=== PATIENT | female | born 1985 | race Caucasian/White ===

== ENCOUNTER 2022-06-15 03:01 | Emergency (ER) | payer OTHER, SELFPAY ==
--- OUTSIDE RECORDS SUMMARY | 2022-06-15 03:06 | XMS REPORT | Continuity of Care Document ---
:1985 Author Organization [facility] t Address [address] [place] [address] Care Team Providers Name Role Phone DAVID Primary Care Physician Unavailable SLY Attending Clinician Unavailable Enrique Puente Attending Clinician Unavailable Reina MAYO Attending Clinician Unavailable Christofer TAYLOR Attending Clinician Unavailable Windy MARINO Attending Clinician Unavailable ABBY Attending Clinician Unavailable LUCILA Attending Clinician Unavailable Desiree ALVARADO Attending Clinician Unavailable RACHEAL BLAKELY Attending Clinician Unavailable Windy MCKEON Attending Clinician Unavailable Jessica WEAVER Attending Clinician Unavailable Flora HULL Attending Clinician Unavailable BLAYNE Attending Clinician Unavailable Angelina WELDON Attending Clinician Unavailable Samantha Gillespie DO Attending Clinician Physician, Primary or Family Admitting Clinician Unavailmariana ESTRELLA Admitting Clinician Unavailable Payers Payer Name Policy Type Policy Number Effective Date Expiration Date Reina silver [facility] [id number] 2019 HEALTH PLAN STAR 00:00:00 [facility] P [id number] HEALTH PLAN [place] [employer] [place] [id number] 2019 AFFILIATE 00:00:00 Problems Condition Condition Condition Status Onset Resolution Last Treating Co mments Source Name Details Category Date Date Treatment Clinician Date Acute knee Acute knee Disease Active 2015-11 U nivers pain pain 2-22 ity of 00:00: [place] 00 [facility] Allergies, Adverse Reactions, Alerts Allergy Allergy Status Severity Reaction(s) Onset Inactive Treating Comm ents Source Name Type Date Date Clinician No Known DA Active U 2019- [facility] [place] [facility] 00:[facility]: [facility] 00 are [facility] No Known DA Active U 2019-1 [facility] Allergie 0-17 [place]in s 00:00: [facility] 00 are [facility] No Known DA Active U 2019- [facility] Allergie 5-29 [place] s 00:[facility]: [place] 00 [facility] No Known DA Active U 2019-0 [facility] Allergie 5-29 Clear s 00:00: [place] 00 [facility] No Known DA Active U [facility] All[facility]ie 1-15 [place] 00:00: [address] No Known DA Active U 2013- [facility] Allergie 1-15 [place] 00:00: [address] NO KNOWN Drug Active Univers ALLERGIE Class ity of S [facility] Social History Social Habit Start Date Stop Date Quantity Comments Source Exposure to Not sure [facility] SARS-CoV-2 (event) Medica [facility] Alcohol intake 2017-06-15 2017-06-15 [facility] 00:00:00 00:00:00 [facility] Sex Assigned At [birth year] [facility] 00:00:00 00:00:00 [facility] Smoking Status Start Date Stop Date Source Former smoker 2017-06-15 00:00:00 2017-06-15 00:00:00 [facility] Medications Ordered Filled Start Stop Current Ordering Indication Dosage Frequency Signature Comments Components Source Medication Medication Date Date Medication? Clinician (SIG) Name Name ziprasidone 2020- No 10mg 10 mg, Uni vers (GEODON) 05-07 Intramuscu ity of injection 22:30: 21:26 [place] 00 :00 1 dose, [facility] 05/07/21 at 1730, JOSÉ MIGUEL acetaminoph 2020- No 1000mg 1,000 mg, Univers en 05-07 Oral, ity of (TYLENOL) 21:30: 20:20 [place]CE[place] :[place] dose, [facility] 1,000 mg 05/07/21 at [facility] h 1630, JOSÉ MIGUEL LORazepam No 2mg 2 mg, Slow U nivers (ATIVAN) 05-07 IV Push, ity of injection 2 20:00: 18:54 [place] dose, [facility] 05/07/21 at [place] 1500, STAT hydrOXYzine 2020- No 50mg 50 mg, Uni vers (ATARAX) 05-07 Oral, ity of tablet 50 03:30: 02:41 [place]CE[place] mg 00 :00 dose, [facility] 05/06/21 at [place] 2230, JOSÉ MIGUEL acetaminoph No 650mg 650 mg, U nivers en 05-07 Oral, ity of (TYLENOL) 03:30: 02:41 ONCE, [place] tablet 650 00 :00 dose, [facility] estephania mg 05/06/21 at [place] 2230, [facility] Nitrofurant Yes [id number] 100mg Take 1 Univers oin&Nit. 05-07 capsule by ity o f [place] 00:00: mouth 2 [place] (MACROBID) 00 (two) Medical 100 mg times [place] capsule daily. melatonin No 9mg 9 mg, Univer s (MELATIN) 05-06 Oral, ity of tablet 9 mg 12:00: 11:01 [place]CE[place] dose, [facility] 05/06/21 at [place] 0700, Routine nicotine Yes 1{patch 1 Patch, Un nae (NICODERM) 05-06 } Topical, ity o f 21 mg/24 hr 11:15: Administer [place] patch 1 00 over 24 Medical Patch Hours, [place] Q24H, First dose on [facility] 05/06/21 at 0615, Until Discontinu ed, Routine KCL 2020- No 40meq 40 mEq, Univers (KLOR-CON 05-06 Oral, ity of M20) tablet 07:45: 07:16 [place]CE[place] 40 mEq 00 :00 dose, [facility] 05/06/21 at [place] 0245, JOSÉ MIGUEL potassium 2020- No 10meq 10 mEq, IV Univers chloride in 05-06 Piggyback, i ty of water 10 07:45: 08:17 ONCE, 1 [place] mEq/100 mL 00 :00 dose, [facility] estephania RTU 10 mEq 05/06/21 at [facility] 0245, 100 mL NaCl 0.9% 2020- No 1000mL at 999 Uni vers (NS) bolus 05-06 mL/hr, ity of infusion 07:15: 09:45 1,000 mL, [place] 1,000 mL 00 :00 IV Medical Infusion, [place] ONCE, 1 dose, [facility] 05/06/21 at 0215, JOSÉ MIGUEL LORazepam 2020- No 2mg 2 mg, Slow U nivers (ATIVAN) 05-06 IV Push, ity of injection 2 06:45: 06:05 ONCE[place] mg 00 :00 dose, [facility] 05/06/21 at [place] 0145, STAT sulfamethox 2020- No 1{tbl} 1 tablet, [facility] azole-trime 05-06 Oral, BID, i ty of thoprim 05:45: 00:59 6 doses, [place] (BACTRIM 00 :00 First dose Medic al DS) 800-160 (after Branch mg per last tablet 1 modificati tablet on) on Thu05/06/21 at 0045, Last dose on Thu05/08/21 at 0800, JOSÉ MIGUEL
Re ason for Anti-Infec tive: Documented Infection< br>Documen yi Infection Site: Urine
D uration of Therapy: 7 days LORazepam 2020- No 1mg 1 mg, Slow U nivers (ATIVAN) 05-06 IV Push, ity of injection 1 05:30: 04:24 [place]CE[place] mg [place] :[place] dose, [facility] 05/06/21 at [place] 0030, STAT acetaminoph 2017-0 Yes 1{tbl} Take 1 Un nae en-codeine 7-25 tablet by ity of (TYLENOL-CO 00:00: mouth [place] DEINE #3) 00 every 4 Medical 300-30 mg (four) Branch tablet hours as needed for Pain (scale 4-6) or Pain (scale 7-10). acetaminoph Yes 1{tbl} Take 1 Un nae en-codeine 7-25 tablet by ity of (TYLENOL-CO 00:00: mouth [place] DEINE #3) 00 every 4 Medical 300-30 mg (four) Branch tablet hours as needed for Pain (scale 4-6) or Pain (scale 7-10). methylPREDN Yes 84mg Take 21 Uni vers ISolone 7-24 tablets by ity of (MEDROL, 00:00: mouth [place] RHINA,) 4 mg 00 SEE-INSTRU Med ical tablets CTIONS. Branch follow package directions acetaminoph Yes 1{tbl} Take 1 Un nae en-codeine 7-24 tablet by ity of (TYLENOL-CO 00:00: mouth [place] DEINE #3) 00 every 4 Medical 300-30 mg (four) Branch tablet hours as needed for Pain (scale 4-6) or Pain (scale 7-10). methylPREDN 2015-11 Yes 84mg Take 21 Uni vers ISolone 2-22 tablets by ity of (MEDROL, 00:00: mouth [place] RHINA,) 4 mg 00 SEE-INSTRU Med ical tablets CTIONS. Branch follow package directions citalopram 2015-11 Yes TK 11/24 T Uni vers 20 mg 2-05 PO QAM FOR ity of tablet 00:00: 1 WEEK AND [place] 00 THEN 1 T Medical PO QAM Branch azithromyci 2014-11 Yes 250mg Take 1 Tab Univers n 2-24 by mouth ity of (ZITHROMAX 00:00: daily. [place] Z-RHINA) 250 00 Medical mg tablet Branch ibuprofen 2014-11 Yes 800mg Take 1 Tab U nivers (MOTRIN) 2-24 by mouth ity of 800 mg 00:00: every 6 [place] tablet 00 (six) Medical hours as Branch needed for Pain (scale 4-6) or Temp > 38.5 C. benzonatate 2014-11 Yes 200mg Take 1 Cap Univers (TESSALON) 2-24 by mouth 3 ity of 200 mg 00:00: (three) [place] capsule 00 times Medical daily as Branch needed for Cough. Vital Signs Vital Name Observation Time Observation Value Comments Source Systolic blood 2021-05-07 19:00:00 110 mm[Hg] Univer sity of pressure [facility] Diastolic blood 2021-05-07 19:00:00 71 mm[Hg] Unive rsity of pressure [facility] Heart rate 2021-05-07 19:00:00 81 /min Universi ty of [facility] Respiratory rate 2021-05-07 19:00:00 18 /min Univ ersity of [facility] Oxygen saturation in 2021-05-07 19:00:00 97 /min University of Arterial blood by [facility] Pulse oximetry Branch Body temperature 2021-05-07 02:00:00 37.39 Brittany [facility] Body weight 2021-05-06 03:16:00 58.968 kg Universi [facility] BMI 2021-05-06 03:16:00 23.78 [facility] 2021-05-07 19:00:00 110 mm[Hg] Univer sity of [facility] Diastolic blood 2021-05-07 19:00:00 71 mm[Hg] Unive rsity of [facility] Heart rate 2021-05-07 19:00:00 81 /min Universi ty of [facility] Respiratory rate 2021-05-07 19:00:00 18 /min [facility] Oxygen saturation in 2021-05-07 19:00:00 97 /min University of Arterial blood by [facility] Pulse oximetry Branch Body temperature 2021-05-07 02:00:00 37.39 Brittany [facility] Body weight 2021-05-06 03:16:00 58.968 kg Universi [facility] BMI 2021-05-06 03:16:00 23.78 kg/m2 [facility] Procedures Procedure Date / Time Performing Clinician Source Performed COVID-19 (MOLECULAR 2021-05-07 02:19:00 Erlin Walton [facility] NUCLEIC ACID AMPLIFICATION) CK-MB (WITHOUT INDEX) 2021-05-07 02:16:00 Erlin Walton [facility] POTASSIUM SERUM 2021-05-06 13:19:00 Cristóbal De León o f [facility] HEPATIC FUNCTION PANEL 2021-05-06 06:03:00 Amanda Gillespie [facility] ([id number]) (ALB,T.PRO,BILI [facility] Branch T,BU/BC,ALT,AST,ALK PHOS) BASIC METABOLIC PANEL 2021-05-06 06:03:00 [facility]illes[facility] (NA, K, CL, CO2, Medical Branch GLUCOSE, BUN, CREATININE, CA) HB ECG ROUTINE & RHYTHM 2021-05-06 04:46:27 [facility] POCT TEST 2021-05-06 04:08:00 Amanda Gillespie [facility] SALICYLATE 2021-05-06 04:04:00 Amanda Gillespie [facility] ETHANOL 2021-05-06 04:04:00 Amanda Gillespie [facility] URINE DRUG (IMMUNOASSAY) 2021-05-06 04:04:00 Amanda Gillespie [facility] DRUG Medical [facility] SCREEN CBC WITH DIFF 2021-05-06 04:04:00 Amanda Gillespie [facility] URINALYSIS 2021-05-06 04:04:00 Amanda Gillespie [facility] COVID-19 (ID NOW RAPID 2021-05-06 04:04:00 Amanda Gillespie [facility] TESTING) [facility] NOTICE OF PRIVACY 2021-05-06 02:44:14 Doctor Unassigned, No [facility] PRACTICES Name [facility] CONSENT/REFUSAL FOR 2021-05-06 02:43:53 Doctor Unassigned, No [facility] DIAGNOSIS AND TREATMENT Name [facility] Encounters Start End Encounter Admission Attending Care Care Encounter Source Date/Time Date/Time Type Type Clinicians Facility Department ID 2022-03-24 Outpatient [facility] [id number] [place] 14:13:21 Health 2022-03-04 Outpatient [facility] [id number] [place] 13:49:44 [facility] 2022-02-14 Outpatient [facility] [id number] [place] 21:50:44 [id number] [facility] 2021-09-25 Outpatient [facility] [id number] [place] 09:53:09 [id number] [facility] 2021-09-23 Emergency [facility] [id number] Univers 00:54:38 ity [facility] 2021-06-15 [facility] [id number] [facility] 17:20:53 FRANCISCO 2020-09-08 Inpatient HCANW ADAN [id number] [facility] 22:22:00 [id number] [facility] 2020-04-25 Inpatient RAMON Puente, [facility] DAYS [id number] [facility] 11:15:00 Zachariah [id number] [facility] 2020-01-21 Inpatient HCACR ADAN [id number] [facility] 16:53:00 [id number] [facility] 2022-05-27 2022-05-27 Outpatient , [facility] [id number] Avinash 00:00:00 00:00:00 [facility] 2022-04-24 2022-04-24 Outpatient EBENEZER [facility] [id number] [place] 00:00:00 00:00:00 Joshua MARTINEZ KATIE 2022-04-11 2022-04-11 Outpatient JAMILA, USMAN [facility] [id number] Avinash 00:00:00 00:00:00 [facility] 2022-03-19 2022-03-19 Outpatient ABBY, [facility] [id number] Avinash 06:39:00 13:54:08 [facility] 2022-03-07 2022-03-07 Outpatient EBENEZER [facility] [id number] Avinash 00:00:00 00:00:00 REQUABHINAV, Heal th KATIE 2022-03-07 2022-03-07 Outpatient LUCILA, [facility] [id number] Avinash 00:00:00 [facility]00:[facility]22-03-06 2022-03-06 Outpatient JAMILA, USMAN [facility] [id number] Avinash 00:00:00 00:00:00 Health 2022-03-05 2022-03-05 Outpatient NETTIE, [facility] [id number] Avinash 07:21:01 15:40:36 [facility] 2022-01-24 2022-01-24 [facility] [id number] [place] 15:25:58 23:59:00 YAQUELIN [facility] 2021-12-24 2021-12-25 [facility] [id number] [place] 14:17:00 19:55:00 [facility] 2021-12-25 2021-12-25 [facility] [id number] [place] 00:00:00 00:00:00 [facility] 2021-12-24 2021-12-24 Emergency 1 [facility] [id number] [place] 14:17:00 14:17:00 [facility] 2021-08-22 2021-08-25 [facility] [id number] [place] 01:05:00 04:53:00 [facility] 2021-08-22 2021-08-22 Outpatient [facility] [id number] [place] 01:05:00 01:05:00 [facility] 2021-08-22 2021-08-22 Emergency [facility] [id number] [place] 00:00:00 00:00:00 [facility] 2021-08-22 2021-08-22 Outpatient BLAYNE, [facility] [id number] [place] 00:00:00 00:00:00 [facility] 2021-08-21 2021-08-21 Outpatient FATEMEH [facility] [id number] [place] 21:06:54 23:59:00 , JAYSON Forrester [facility] 2021-05-05 2021-05-07 [facility] [id number] [facility] 22:52:00 18:16:00 Amanda Murry [id number] shaggy [facility] [id number] [facility] [id number] [facility] 084 [place] 2021-05-05 2021-05-07 Emergency [facility] [id number] 22:52:00 18:16:00 Amanda Murry [id number] [place] [id number] [place] [id number] 2020-04-25 2020-04-25 Outpatient RAMON Puente, [facility] DAYS [id number] [facility] 05:31:00 05:31:00 Zachariah [id number] [facility] 2020-04-20 2020-04-20 Outpatient Young, [facility] OUTD [id number] [facility] 13:22:00 13:22:00 Zachariah [id number] [facility] 2020-04-20 2020-04-20 Outpatient Young, [facility] OUTD [id number] [facility] 13:22:00 13:22:00 Zachariah [id number] [facility] 2020-04-20 2020-04-20 Outpatient Young, HCA[facility] DAYS [id number] [facility] 11:15:00 11:15:00 Zachariah [id number] [facility] Results Test Description Test Time Test Comments Results Result Comments Source SARS-CoV-2 RNA Resp Ql LYNN+probe 2021-12-25 12:02:31 Test Item Value Reference Range Interpretation Comme nts Hospitalized? (test code = No 11475-8) ICU? (test code = 41160-4) No Symptomatic as defined by CDC? 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 (test No code = 35744-9) Resident in a congregate care No setting (including nursing homes, residential care for people with intellectual and developmental disabilities, psychiatric treatment facilities, group homes, board and care homes, homeless care home, foster care or other): (test code = 88788-4) ? (test code = No 20055-7) SARS-CoV-2 RNA Resp Ql NOT DETECTED Not Detected INTER PRETATION: No LYNN+probe (test code = [place] [address]-4) SARS-CoV-2 Guicho navirus (COVID-19) were present in this patient's sample by this test. A no t detected result does not exclude the possibility of active infection with this virus due to other fa ctors that may affect the results such as a poorly col lected sample, viral t iters below the limit of de tection of the assay, and the infrequent poss ibility of inhibitors in t he sample. This result baljit uld be interpreted in conjunction with clinical, radiographic, a nd other laboratory find ings and should not be u sed as the sole indicator of active infection with SARS-CoV-2 Coronavirus (CO VID-19). COMMENT: This urbano real-time reverse transcriptase polymerase chain reaction (RT-PCR) test rapidly detects SARS-CoV-2 (COVID-19) virus from nasopharyngeal and nasal swab specimens. In accordance with the FDA's guidance document "Policy for Diagnostic Tests for Coronavirus Disease-2019 during the Public Health Emergency", this test was developed, and its performance characteristics were verified by the [facility] molecular diagnostics laboratory and is authorized for clinical diagnostic use. This laboratory is certified under the Clinical Laboratory Improvement Amendments (CLIA) as qualified to perform high complexity clinical laboratory testing.HIV 1+2 Ab+HIV1 p24 Ag SerPl Ql [id number] 16:15:14 Test Item Value Reference Range Interpretation Comments HIV 1+2 Ab+HIV1 p24 Ag SerPl Ql [place] NEGATIVE Negative (test code = 76554-4) SARS-CoV-2 RNA Resp Ql [id number] 19:44:08 Test Item Value Reference Range Interpretation Comments Hospitalized? (test No code = 75768-4) ICU? (test code = No 90696-0) Symptomatic as defined No by CDC? (test code = 53460-1) Employed in No Healthcare? (test code = 56699-2) Resident in a No congregate care setting (including nursing homes, residential care for people with intellectual and developmental disabilities, psychiatric treatment facilities, group homes, board and care homes, homeless care home, foster care or other): (test code = 48253-2) ? (test code = No 94678-1) SARS-CoV-2 RNA Resp Ql NOT DETECTED Not Detected INTER PRETATION: No LYNN+probe (test code = detec table levels 13331-2) of SARS-CoV-2 Coronavirus (COVID-19) were present in this patient's sampl e by this test. A no t detected result does not exclud e the possibility of active infectio n with this virus due to other factor s that may affect the results such as a poorly collecte d sample, viral titers below th e limit of detect ion of the assay, a nd the infrequent possibility of inhibitors in t he sample. This re sult should be interpreted in conjunction wit h clinical, radiographic, a nd other laborator y findings and sh ould not be used as the sole indicator of active infectio n with SARS-CoV-2 Coronavirus (COVID-19). COMMENT: This CepheTaglocity Xpert Xpress SARS-CoV-2 real-time PCR test was developed, and its performance characteristics determined by the [facility] molecular diagnostic Laboratory and is acceptablefor patient testing. It has been approved for patient testing by the FDA under the Emergency Use Auth orization pathway. This laboratory is certified under federal CLIA regulations to perform this type of high complexity testing.CORONAVIRUS COVID-19 TESTING 2021-05-07 08:41:12 Test Item Value Reference Range Interpretation Comments SARS-CoV-2 NAAT (test Not Detected Not Detected code = 58556-7) CHRYSTAL (test code = CHRYSTAL) Cepheid Xpert ?Xpress SARS-CoV-2 Assay is a rapid, real-time RT-PCR test intended for the qualitative detection of nucleic acid from the SARS-CoV-2 in nasopharyngeal (SHEET TAILER) specimens. It is used under Emergency Use Authorization (EUA) by FDA. A positive result is indicative of the presence of SARS-CoV-2 RNA. ?Clinical correlation with patient history and other diagnostic information is necessary to determine patient infection status. A negative (Not Detected) result does not preclude SARS-CoV-2 infection. A negative result does not rule out the presence of PCR inhibitors in the patient specimen or SARS-CoV-2 virus RNA concentrations below the limit of detection by the assay. Clinical correlation with patient history and other diagnostic information should be used in patient management decisions. Invalid: Please collect a new specimen for repeat patient testing if clinically indicated. Lab Interpretation Normal (test code = 60816-8) [facility]2021-05-07 03:04:56 Test Item Value Reference Range Interpretation Comments CK-MB (test code = 0.26 ng/mL See_Comment [Automat ed [id number]) message] The system which generated this result transmitted reference range : <=3.50. The reference range was not used to interpret this result as normal/abnormal . CHRYSTAL (test code = CHRYSTAL) Biotin has been reported to cause a negative bias, interpret results relative to patient's use of biotin. Lab Interpretation Normal (test code = 51297-7) [facility] [id number] 13:45:16 Test Item Value Reference Range Interpretation Comments K (test code = 0523199294) 3.6 mmol/L 3.5-5.0 Lab Interpretation (test code = Normal 48511-5) [facility] Metabolic Panel (NA, K, CL, CO2, GLUCOSE, BUN, CREATININE, CA)2021-05-06 06:41:14 Test Item Value Reference Range Interpretation Comments NA (test code = 139 mmol/L 135-145 9260050879) K (test code = 2.8 mmol/L 3.5-5.0 LL 5633221174) CL (test code = 99 mmol/L 98-108 0667514377) CO2 TOTAL (test code = 26 mmol/L 23-31 1026320739) AGAP (test code = 2-16 6947492084) BUN (test code = 9 mg/dL 7-23 8501715808) GLUCOSE (test code = 110 mg/dL 70-110 8586304415) CREATININE (test code = 0.86 mg/dL 0.50-1.04 5614810267) CALCIUM (test code = 9.9 mg/dL 8.6-10.6 2790455082) eGFR (test code = mL/min/1.73m2 3090350296) CHRYSTAL (test code = CHRYSTAL) Association of Glomerular Filtration Rate (GFR) and Staging of Kidney Disease* + --+ --+ ------+| GFR (mL/min/1.73 m2) ?| With Kidney Damage ?| ?Without Kidney Damage+ --------+ --------+ +| ?>90 ?| ?Stage one ?| ? Normal ?+ ---+ ---+ -------+| ?60-89 ?| ?Stage two ?| ? Decreased GFR ? + --+ --+ ------+| ?30-59 ?| ?Stage three ?| ? Stage three ? + --+ --+ ------+| ?15-29 ?| ?Stage four ? | ? Stage four ?+ ---+ ---+ -------+| ?<15 (or dialysis) ? ?| ?Stage five ? | ? Stage five ?+ ---+ ---+ -------+ *Each stage assumes the associated GFR level has been in effect for at least three months. ?Stages 1 to 5, with or without kidney disease, indicate chronic kidney disease. Notes: Determination of stages one and two (with eGFR >59mL/min/1.73 m2) requires estimation of kidney damage for at least three months as defined by structural or functional abnormalities of the kidney, manifested by either:Pathological abnormalities or Markers of kidney damage (including abnormalities in the composition of the blood or urine or abnormalities in imaging tests). Lab Interpretation Abnormal (test code = 86325-7) [facility] (ALB, T.PRO, BILI T, BU/BC, ALT, AST, ALK PHOS)2021-05-06 06:38:33 Test Item Value Reference Range Interpretation Comments TOTAL BILI (test code = 5960641445) 0.6 mg/dL 0.1-1.1 BILI UNCON (test code = 1960444602) 0.4 mg/dL 0.1-1.1 BILI CONJ (test code = 5752483283) 0.0 mg/dL 0.0-0.3 T PROTEIN (test code = 8108591531) 8.3 g/dL 6.3-8.2 H ALBUMIN (test code = 3960290904) 4.9 g/dL 3.5-5.0 ALK PHOS (test code = 4885274474) 60 U/L 34-122 ALTv (test code = 1742-6) 15 U/L 5-35 AST(SGOT) (test code = 9439463729) 23 U/L 13-40 Lab Interpretation (test code = Abnormal 18376-6) [facility]IM[facility]ASSA[facility]) - COMPREHENSIVE DRUG [id number] 06:17:10 Test Item Value Reference Range Interpretation Comments AMPHET (test code = Presumptive Positive Negative A 0767470447) CHARLIE U (test code = Negative Negative 4714605981) BENZO U (test code = Negative Negative 4808847803) Cocaine Metabolite (test Negative Negative code = 4896827886) METHADONE (test code = Negative Negative 3973429839) OPIATES (test code = Presumptive Positive Negative A 5591524073) PCP (test code = Negative Negative 1923463157) THC (test code = Negative Negative 2488752147) CHRYSTAL (test code = CHRYSTAL) Urine Drug Cutoff Ranges Cocaine: ? 150 ng/mLBenzodiazepines: ? ? 200 ng/mLMethadone: ? 300 ng/mLAmphetamine: ? 1,000 ng/mLOpiates: ? 300 ng/mLCannabinoids: ?50 ng/mLPhencyclidine: ? ? ? 25 ng/mLBarbiturates: ?200 ng/mL The results are to be used only for medical (i.e., treatment) purposes. Unconfirmed screening results must not be used for non-medical purposes (e.g., employment testing, legal testing). Lab Interpretation (test Abnormal code = 60216-1) [facility] CenterEthanol [id number] 05:41:39 Test Item Value Reference Range Interpretation Comments ALCOHOL (test code = <10 mg/dL 0885342228) CHRYSTAL (test code = CHRYSTAL) <10 Ylxqxzdq34-256 Toxic>100 Depression of GUIDE TOUR>400 Fatalities Reported [facility] CenterSALICYLATE2021-06-14 05:41:34 Test Item Value Reference Range Interpretation Comments SALICYLATE (test code <10 mg/L = 3749533578) CHRYSTAL (test code = CHRYSTAL) Therapeutic Range: ? Analgesic and Antipyretic Use ? 20-100 mg/L ? ? Anti-Inflammatory Use ? 100-250 mg/L Toxic Range: ? Greater than 300 mg/L [facility] CenterACETAMINOPHEN2021-06-14 05:41:14 Test Item Value Reference Range Interpretation Comments ACETAMINOP (test code = <10.0 10.0-30.0 L 4988212949) CHRYSTAL (test code = CHRYSTAL) Toxic: Greater than 200 ug/mL @ 4 hour post ingestion or greater than 50 ug/mL @ 12 hour post ingestion Lab Interpretation (test Abnormal code = 71150-4) [facility] CenterCOVID-19 (ID NOW RAPID TESTING)2021-05-06 04:35:50 Test Item Value Reference Range Interpretation Comments SARS-CoV-2 Rapid ID NOW Not Detected Not Detected (test code = 00854-0) CHRYSTAL (test code = CHRYSTAL) ID NOW COVID-19 Assay is an isothermal nucleic acid amplification test intended for the qualitative detection of nucleic acid from SARS-CoV-2 viral RNA in nasopharyngeal (SHEET TAILER) specimens. It is used under Emergency Use Authorization (EUA) by FDA. The limit of detection (LOD) of the assay is 125 Genome Equivalents/mL. A positive result is indicative of the presence of SARS-CoV-2 RNA. ?Clinical correlation with patient history and other diagnostic information is necessary to determine patient infection status. A negative (Not Detected) result does not preclude SARS-CoV-2 infection. In patients with clinical symptoms and other tests that are consistent with SARS-CoV-2 infection, negative results should be treated as presumptive negative and a new specimen should be tested with alternative PCR molecular test. Invalid: Please collect a new specimen for repeat patient testing if clinically indicated. Lab Interpretation Normal (test code = 54792-1) [facility] CenterUrinalysis2021-06-14 04:29:33 Test Item Value Reference Range Interpretation Comments APPEARANCE (test code = Hazy Clear A 7906395523) COLOR (test code = Elva Yellow A 0251731140) PH (test code = 4.8-8.0 9145019387) SP GRAVITY (test code = 1.003-1.030 H 7983722185) GLU U QUAL (test code = Normal Normal 3924583976) BLOOD (test code = Negative Negative 9556864136) KETONES (test code = 5 mg/dL Negative A 4014700514) PROTEIN (test code = 30 mg/dL Negative A 2887-8) UROBILIN (test code = 2.0 mg/dL Normal A 5296818964) BILIRUBIN (test code = 2 mg/dL Negative A 4203802231) NITRITE (test code = Negative Negative 5020921403) LEUK KARINE (test code = 75/uL Negative A 0466727060) RBC/HPF (test code = See_Comment H [Autom ated message] 8585624772) The system Cloudcam generated this result transmit yi reference range : 0 - 3 HPF. The refe rence range was not u sed to interpret th is result as normal/abnormal . WBC/HPF (test code = See_Comment H [Autom ated message] 8559591144) The system Cloudcam generated this result transmit yi reference range : 0 - 5 HPF. The refe rence range was not u sed to interpret th is result as normal/abnormal . BACTERIA (test code = Few Negative A 2408116691) MUCOUS (test code = Marked Negative LPF A 6778153337) SQ EPITH (test code = HPF 5928309399) HYAL CAST (test code = See_Comment H [Aut omated message] 4025068942) The system whic h generated this result transmit yi reference range : <=2 LPF. The refere nce range was not u sed to interpret th is result as normal/abnormal . Lab Interpretation (test Abnormal code = 00778-1) [facility] with [id number] 04:15:45 Test Item Value Reference Range Interpretation Comments WBC (test code = See_Comment [Automated 6690-2) message] The sy stem which generated this result transmitted reference range : 4.30 - 11.10 10*3/?L. The reference range was not used to interpret this result as normal/abnormal . RBC (test code = See_Comment [Automated 789-8) message] The sy stem which generated this result transmitted reference range : 3.93 - 5.25 10*6/?L. The reference range was not used to interpret this result as normal/abnormal . HGB (test code = 13.7 g/dL 11.6-15.0 718-7) HCT (test code = 38.8 % 35.7-45.2 4544-3) MCV (test code = 86.0 fL 80.6-95.5 787-2) MCH (test code = 30.4 pg 25.9-32.8 785-6) MCHC (test code = 35.3 g/dL 31.6-35.1 H 786-4) RDW-SD (test code = 37.9 fL 39.0-49.9 L 51962-2) RDW-CV (test code = 12.2 % 12.0-15.5 788-0) PLT (test code = See_Comment [Automated 777-3) message] The sy stem which generated this result transmitted reference range : 166 - 358 10*3/ ?L. The reference r evelina was not used to interpret this result as normal/abnormal . MPV (test code = 12.2 fL 9.5-12.9 56360-5) NRBC/100 WBC (test See_Comment [Automat ed code = 4550660758) message] The system which generated this result transmitted reference range : 0.0 - 10.0 /100 WBCs. The refer ence range was not u sed to interpret th is result as normal/abnormal . NRBC x10^3 (test code <0.01 See_Comment [Auto mated = 6617539869) message] The s ystem which generated this result transmitted reference range : 10*3/?L. The reference range was not used to interpret this result as normal/abnormal . GRAN MAT (NEUT) % 57.5 % (test code = 770-8) IMM GRAN % (test code 0.30 % = 0607677269) LYMPH % (test code = 33.7 % 736-9) MONO % (test code = 6.8 % 5905-5) EOS % (test code = 0.7 % 713-8) BASO % (test code = 1.0 % 706-2) GRAN MAT x10^3(ANC) 5.18 10*3/uL 1.88-7.09 (test code = 2915520716) IMM GRAN x10^3 (test 0.03 10*3/uL 0.00-0.06 code = 0009481358) LYMPH x10^3 (test code 3.04 10*3/uL 1.32-3.29 = 731-0) MONO x10^3 (test code 0.61 10*3/uL 0.33-0.92 = 742-7) EOS x10^3 (test code = 0.06 10*3/uL 0.03-0.39 711-2) BASO x10^3 (test code 0.09 10*3/uL 0.01-0.07 H = 704-7) Lab Interpretation Abnormal (test code = 85181-8) [facility] CenterPOCT [id number] 04:08:00 Test Item Value Reference Range Interpretation Comments POCT PREG (test code = 1605) negative On board controls acceptable with C present Line (test code = 3574) Lab Interpretation (test code = Normal 00926-9) [facility] [id number] 01:00:00 [facility] : 1985 Sex: FPatient Name: AMANDA LEES Unit No: [id number] EXAMS: CPT: [id number] CT ABD PELVIS W/CONT 68001 CT ABDOMEN AND PELVIS WITH IV CONTRAST: CLINICAL HISTORY: Lower quadrant pain COMPARISON: None. TECHNIQUE: Axial CT imaging of the abdomen and pelvis was performed with IV contrast. Coronal and sagittal reformatted images are submitted. FINDINGS: The liver appears normal. The spleen appears normal. The pancreas has a normal appearance without mass or inflammation. The kidneys appear normal. No adrenal abnormalities are seen. Bowel loops are normal in caliber.There is no free fluid in the abdomen or pelvis. No free air is seen. There is no abdominal or retroperitoneal mass. No inflammatory process is seen in the abdomen or pelvis. The appendix appears normal. The abdominal aorta is normal in caliber. Osseous structures appear normal. The lung bases are clear. No pleural or pericardial effusion seen. IMPRESSION: Negative CT of the abdomen and pelvis. DLP: 377.14 mGy-cm IV Contrast: [address] dose optimization is achieved for this examination by the use of a CT protocol in accordance with ACR practice standards and adherence to vehicle modification technician's recommendations with automated exposure control. at 0100 Reported and signed by: Jefferson Alvarado MD CC: Technologist: JUANJOSE Randle CTDI: 7.55 DLP: 377.14 TrscrDt/Tm: 09/09/2020 (0100) by:[email or web address] Orig Print D/T: S: 09/09/2020 (010) BATCH NO: N/A Name: AMANDA LEES [facility] Phys: [id number] - Melvin Alvarado [address] : 1985 Age: 35 [place]: [place] [address] [id number] Loc: N.ERS Exam Date: 09/08/2020 Status: REG ER PH: FAX: PAGE 1 Signed ReportCOMPREHENSIVE METABOLIC [id number] 00:21:00 Test Item Value Reference Range Interpretation Comments SODIUM (test code = 138 mmol/L 135-145 N NA) POTASSIUM (test 3.8 mmol/L 3.6-5.0 N code = K) CHLORIDE (test code 104 mmol/L 101-111 N = CL) CARBON DIOXIDE 24 mmol/L 21-31 N (test code = CO2) GLUCOSE (test code 82 mg/dl 70-100 N = GLU) BLOOD UREA NITROGEN 6 mg/dl 6-20 N (test code = BUN) GLOMERULAR >=60 max >60 The estimated FILTRATION RATE estimate glomerular (test code = GFR) filtration rate is computed usingpatient ra ce, age (>18), sex, and serum creatinin e. If anyof the ne eded data elements a re missing the Laboratory nuha ot compute an estimation of t he glomerular filtration rate . CREATININE (test 0.89 mg/dL 0.44-1.03 N code = CREAT) TOTAL PROTEIN (test 6.7 g/dL 6.7-8.2 N code = PROT) ALBUMIN (test code 3.9 g/dL 3.2-5.5 N = ALB) CALCIUM (test code 9.2 mg/dL 8.5-10.5 N = CA) BILIRUBIN TOTAL 0.40 mg/dL 0.2-1.3 N (test code = BILT) SGOT/AST (test code 16 U/L 10-42 N = AST) SGPT/ALT (test code 16 U/L 10-60 N = ALT) ALKALINE 43 U/L 42-121 N PHOSPHATASE (test code = ALKP) [id number] 00:21:00 Test Item Value Reference Range Interpretation Comments LIPASE (test code = LIP) 35 IU/L 22-51 N URINALYSIS [id number] 23:59:00 Test Item Value Reference Range Interpretation Comments UA COLOR (test code = COLU) YELLOW YELLOW UA APPEARANCE (test code = APPU) HAZY CLEAR UA GLUCOSE DIPSTICK (test code = NEGATIVE NEGATIVE DGLUU) UA BILIRUBIN DIPSTICK (test code = NEGATIVE NEGATIVE BILU) UA KETONE DIPSTICK (test code = NEGATIVE NEGATIVE KETU) UA SPECIFIC GRAVITY (test code = 1.016 1.001-1.030 SGU) UA BLOOD DIPSTICK (test code = BERNABE) NEGATIVE NEGATIVE UA PH DIPSTICK (test code = JOSLYN) 5.0 5.0-9.0 UA PROTEIN DIPSTICK (test code = 1+ NEGATIVE A PROU) UA UROBILINOGEN DIPSTICK (test code 2.0 <=1.0 A = URO) UA NITRITE DIPSTICK (test code = NEGATIVE NEGATIVE OG) UA ASCORBIC ACID DIPSTICK (test NEGATIVE code = AAU) UA LEUKOCYTE ESTERASE DIPSTICK NEGATIVE NEGATIVE (test code = LEUU) UA WBC (test code = WBCU) 0-5 /HPF 0-5 UA RBC (test code = RBCU) 6-10 /HPF 0-5 UA EPITHELIAL CELLS (test code = FEW /LPF NONE-FEW EPIU) UA BACTERIA (test code = BACU) 1+ /HPF NONE SEEN A UA CALCIUM OXALATE CRYSTALS (test FEW /HPF NONE SEEN code = CAOXU) UA HYALINE CAST (test code = HYALU) 0-1 /LPF 0-1 UA MUCUS (test code = MUCU) 2+ /LPF NONE SEEN UR HCG [id number] 23:58:00 Test Item Value Reference Range Interpretation Comments UR HCG QUAL (test code = HCGQLU) NEGATIVE NEGATIVE HCG SERUM [id number] 23:52:00 Test Item Value Reference Range Interpretation Comments HCG SERUM QUAL NEGATIVE NEGATIVE This is a suzanne litative (test code = HCGQL) screenin g test.The quantitative Bh cg may be helpful.Weakly positive results should be repeated in 48 hours. CBC W/AUTO [id number] 23:46:00 Test Item Value Reference Range Interpretation Comments WHITE BLOOD CELL (test code = 8.9 x10 3/uL 3.2-11.5 N WBC) RED BLOOD CELL (test code = 4.59 x10(6)/m 3.70-5.10 N RBC) HEMOGLOBIN (test code = HGB) 13.7 g/dL 12.0-15.0 N HEMATOCRIT (test code = HCT) 40.1 % 35.7-44.8 N MEAN CELL VOLUME (test code = 87 fL 80-100 N MCV) MEAN CELL HGB (test code = MCH) 29.8 pg 26.2-33.8 N MEAN CELL HGB CONCENTRATION 34.2 g/dL 30.0-34.0 H (test code = MCHC) RED CELL DISTRIBUTION WIDTH 11.9 % 11.3-14.5 N (test code = RDW) PLATELET COUNT (test code = 189 x10 3/uL 130-408 N PLT) MEAN PLATELET VOLUME (test code 11.9 fL 8.6-12.6 N = MPV) NEUTROPHIL % (test code = NT%) 47.2 % 40.0-70.0 N IMMATURE GRANULOCYTE % (test 0.2 % 0.0-2.0 N code = IG%) LYMPHOCYTE % (test code = LY%) 39.2 % 20-40 N MONOCYTE % (test code = MO%) 7.1 % 1-10 N EOSINOPHIL % (test code = EO%) 5.1 % 0.0-5.0 H BASOPHIL % (test code = BA%) 1.2 % 0.0-1.0 H NUCLEATED RBC % (test code = 0.0 % 0.0-0.9 N NRBC%) NEUTROPHIL # (test code = NT#) 4.2 x10 3/uL 1.6-7.2 N LYMPHOCYTE # (test code = LY#) 3.49 x10 3/uL 1.1-2.7 H MONOCYTE # (test code = MO#) 0.6 x10 3/uL 0.3-0.8 N EOSINOPHIL # (test code = EO#) 0.5 x10 3/uL 0.0-0.5 N BASOPHIL # (test code = BA#) 0.1 x10 3/uL 0.0-0.1 N CBC W/AUTO [id number] 23:41:00 Test Item Value Reference Range Interpretation Comments WHITE BLOOD CELL (test code = 8.9 x10 3/uL 3.2-11.5 N WBC) RED BLOOD CELL (test code = 4.59 x10(6)/m 3.70-5.10 N RBC) HEMOGLOBIN (test code = HGB) 13.7 g/dL 12.0-15.0 N HEMATOCRIT (test code = HCT) 40.1 % 35.7-44.8 N MEAN CELL VOLUME (test code = 87 fL 80-100 N MCV) MEAN CELL HGB (test code = MCH) 29.8 pg 26.2-33.8 N MEAN CELL HGB CONCENTRATION 34.2 g/dL 30.0-34.0 H (test code = MCHC) RED CELL DISTRIBUTION WIDTH % 11.3-14.5 (test code = RDW) PLATELET COUNT (test code = x10 3/uL 130-408 PLT) MEAN PLATELET VOLUME (test code 11.9 fL 8.6-12.6 N = MPV) NEUTROPHIL % (test code = NT%) % 40.0-70.0 LYMPHOCYTE % (test code = LY%) % 20-40 MONOCYTE % (test code = MO%) % 1-10 EOSINOPHIL % (test code = EO%) % 0.0-5.0 BASOPHIL % (test code = BA%) % 0.0-1.0 NUCLEATED RBC % (test code = % 0.0-0.9 NRBC%) NEUTROPHIL # (test code = NT#) x10 3/uL 1.6-7.2 LYMPHOCYTE # (test code = LY#) x10 3/uL 1.1-2.7 MONOCYTE # (test code = MO#) x10 3/uL 0.3-0.8 EOSINOPHIL # (test code = EO#) x10 3/uL 0.0-0.5 FALLOPIAN [id number] 09:35:00 RUN DATE: 04/26/20 [employer] PAGE 1 RUN TIME: 934 Specimen Inquiry RUN USER: INTERFACE PATIENT: AMANDA LEES LOC: SANDY U #: [id number] AGE/SX: 35/F ROOM: RE04/25/20[facility] DR: Zachariah Puente : 83 BED: DIS: STATUS: DEP [facility] TLOC: SPEC #: [id number] RECD: 04/25/20 STATUS: IAN REJessica #: [id number] MEL: 04/25/[address] [facility] DR: Zachariah Puente MD ENTERED: 04/25/20 SP TYPE: FALLOPIAN OTHR DR: No Primary or Family PhysicianORDERED: KASHMIR [id number], BLOCK-CT/SL-NBC/2, SLIDE-CT/SL-NBC/2 COPIES TO: No Primary or Family Physician Zachariah Puente MD [address] [place] [address]. [address] [place] [address] PROCEDURES: [id number] (04/25/20) BLOCK-CT/SL-NBC (04/25/20) SLIDE-CT/SL-NBC (04/25/20) TISSUES: A. FALLOPIAN TUBE - BILATERAL CLINICAL HISTORY STERILIZATION FINAL DIAGNOSIS FALLOPIAN TUBES, BILATERAL, SALPINGECTOMY: - COMPLETE CROSS SECTIONS OF FALLOPIAN TUBE LUMENS IDENTIFIED - BENIGN CYSTIC WALTHARD CELL NESTS CPT Codes: 16325 x 2 GROSS DESCRIPTION The paperwork, container, and cassettes are all labeled [id number]. Received in formalin, labeled with the patient's name (Amanda Lees), medical record number, and "bilateral fallopian tubes" are two segments of fimbriated fallopian tube without designation as to laterality. The first segment is 4 cm in length x 0.8 cm in diameter. Within the fimbriae is an intact 0.5 cm in greatest dimension thin-walled, smooth-lined, serous-filled cyst. The lumen is pinpoint. The second segment is 5 cm in length x 0.7 cm in diameter. Near the fimbriae are thin-walled, smooth-lined, serous-filled cysts up to 0.3 x 0.2 cm. The CONTINUED ON NEXT PAGE RUN DATE: 04/26/20 [facility] - Lab PAGE 2 RUN TIME: 934 Specimen Inquiry RUN USER: INTERFACE SPEC #: [id number] PATIENT: AMANDA LEES#[id number] (Continued) GROSS DESCRIPTION (Continued) lumen is pinpoint. Ink code: Black - second segment. Sections to include the entire fimbriae of each segment are submitted: A1, first segment; A2, second segment. SHANNEN//pardeep Signed SIGNATURE ON FILE Cayden Avilez MD 04/26/20 0935 ENDOF REPORT URINALYSIS [id number] 07:10:00 Test Item Value Reference Range Interpretation Comments UA COLOR (test code = YELLOW DESCRIPT YELLOW COLU) UA APPEARANCE (test code HAZY DESCRIPT CLEAR = APPU) UA GLUCOSE DIPSTICK (test NEGATIVE (0) mg/dL (NEG) 0 code = DGLUU) UA BILIRUBIN DIPSTICK NEGATIVE (0.0) mg/dL (NEG) 0 (test code = BILU) UA KETONE DIPSTICK (test TRACE mg/dL (NEG) 0 code = KETU) UA SPECIFIC GRAVITY (test 1.023 SG 1.001-1.035 code = SGU) UA BLOOD DIPSTICK (test 3+ (300 RBCs/uL) (NEG) 0 A code = BERNABE) mg/dL UA PH DIPSTICK (test code 5.0 pH UNITS 4.6-8.0 = JOSLYN) UA PROTEIN DIPSTICK (test 30 (1+) mg/dL <30 (1+) A code = PROU) UA UROBILINIOGEN DIPSTICK NORMAL (0) mg/dL <2.0 (1+) (test code = URO) UA NITRITE DIPSTICK (test POSITIVE SCREEN NEG A code = OG) UA LEUKOCYTE ESTERASE 25(TR) Leuk/mcL (NEG) 0 A DIPSTICK (test code = LEUU) UA WBC (test code = WBCU) 40-50 #WBC/HPF 0-3 A UA RBC (test code = RBCU) 50-100 #RBC/HPF 0-3 A UA BACTERIA (test code = MANY /HPF NONE-FEW A BACU) UA SQUAMOUS CELLS (test RARE >0 /HPF NONE-SQepi code = SQU) UA MUCUS (test code = RARE /LPF NONE MUCU) Specimen comments: PRE OP FOR SURGERYNovel Coronavirus 2019 [id number] 07:26:00 Test Item Value Reference Range Interpretation Comments Novel Coronavirus 2019 Inhouse (test Negative Negative code = COVNONPUI) Testing Criteria Pre-Procedure ScreeningNovel Coronavirus 2019 [id number] 07:25:00 Test Item Value Reference Range Interpretation Comments Novel Coronavirus 2019 Inhouse (test Negative Negative code = COVNONPUI) Testing Criteria Pre-Procedure ScreeningHCG SERUM [id number] 13:16:00 Test Item Value Reference Range Interpretation Comments HCG SERUM QUAL (test code = HCGQL) NEG SCREEN NEG CBC W/O [id number] 13:02:00 Test Item Value Reference Range Interpretation Comments WHITE BLOOD CELL (test code = WBC) 10.1 K/mm3 4.1-12.1 N RED BLOOD CELL (test code = RBC) 4.38 M/mm3 3.8-5.5 N HEMOGLOBIN (test code = HGB) 13.4 G/DL 10.6-15.8 N HEMATOCRIT (test code = HCT) 41.1 % 31.8-47.4 N MEAN CELL VOLUME (test code = MCV) 93.8 fL 80.1-101.1 N MEAN CELL HGB (test code = MCH) 30.6 pg 25.3-35.3 N MEAN CELL HGB CONCETRATION (test 32.6 G/DL 32.7-35.1 L code = MCHC) RED CELL DISTRIBUTION WIDTH (test 12.0 % 12.2-16.4 L code = RDW) PLATELET COUNT (test code = PLT) 190 K/mm3 155-337 N MEAN PLATELET VOLUME (test code = 12.0 fL 6.8-11.2 H MPV) - US PREG UT [id number] 20:04:00 Patient Name: AMANDA FRENCH Unit No: [id number] EXAMS: CPT CODE: [id number] US PREG UT TRANSVAGINAL 90735 Examination: Ultrasound transvaginal Location code: H60 Comparison: None Discussion: Clinical history is remarkable for pelvic pain. Uterus measures 8.1 x 6.4 x 7.6 cm. An intrauterine gestation is identified. [place]-rump length measures 3.41 cm which corresponds to gestational age of 10 weeks and 2 days. heart rate is identified at 142 bpm. Right ovary measures 3.9 x 1.9 x 2.8 cm and left ovary measures 1.7 x 2.3 x 1.9 cm. Both ovaries are normal in echotexture. Duplex evaluation reveals normal flow in both ovaries. A corpus luteum cyst is identified in the right measuring 2 cm. Impression: 1. Single intrauterine gestation with a gestational age of 10 weeks and 2 days. Please see above. at 2003 Reported and signed by: Tito Asencio MD CC: Milly RODRÍGUEZ Technologist: Leta Esquivel RDMS Trnscrbd D/ (2003) [email or web address] Probe: [id number] Orig Print D/T: S: 01/21/2020 (2006) Probe: GUERLINE Soriano NAME: [address] PHYS: Milly [place], [place] [address] : 1985 AGE: 34 SEX: F LOC: B.ERS PHONE #: [phone] EXAM DATE: 01/21/2020 STATUS: REG ER FAX #: [phone] RAD NO: Page 1 Signed ReportBASIC METABOLIC [id number] 19:09:00 Test Item Value Reference Range Interpretation Comments SODIUM (test code = 133.0 mmol/L 133-144 N NA) POTASSIUM (test code 3.7 mmol/L 3.5-5.1 N = K) CHLORIDE (test code 103 mmol/L 95-105 N = CL) CARBON DIOXIDE (test 23 mmol/L 21-32 N code = CO2) ANION GAP (test code 7.0 GAP calc 4.0-15.0 N = GAP) GLUCOSE (test code = 75 MG/DL 70-110 N GLU) BLOOD UREA NITROGEN 11 MG/DL 7-18 N (test code = BUN) CREATININE (test 0.68 MG/DL 0.55-1.30 N Results may be code = CREAT) depressed if patient is takingN-Acetylc yste ine (NAC) and Metamizole (Dipyrone). CALCIUM (test code = 8.8 MG/DL 8.5-10.1 N CA) INDEX HEMOLYSIS 2 TRACE 10-25 1 NORMAL (test code = MG Index/DL HEMINDEX) INDEX ICTERIC (test 1 NORMAL <2 MG 1 NORMAL code = ICTINDEX) Index/DL INDEX LIPEMIA (test 1 NORMAL <50 MG 1 NORMAL code = LIPINDEX) Index/DL HCG [id number] 19:09:00 Test Item Value Reference Range Interpretation Comments HCG SERUM (test 93802 mi-IU/ML 0-3 H HCG R ANGES DURING code = HCG) NORMAL PREGNANC YPOST LMP 3-4 WEEKS 9 - 130 M IU/ML4-5 WEEKS 75 - 2,600 MIU/ML 5-6 WEEKS 85 0 - 20,800 MIU/M L6-7 WEEKS 4,00 0 - 100,200 MIU/ ML7-12 WEEKS 11,50 0 - 289,000 MIU/ ML12-16 WEEKS 18,30 0 - 137,000 MIU/ ML16-29 WEEKS 1,40 0 - 53,000 MIU/M L 29-41 WEEKS 94 0 - 60,000 MIU/M L BASIC METABOLIC [id number] 18:52:00 Test Item Value Reference Range Interpretation Comments SODIUM (test code = 133.0 mmol/L 133-144 N NA) POTASSIUM (test code 3.7 mmol/L 3.5-5.1 N = K) CHLORIDE (test code 103 mmol/L 95-105 N = CL) CARBON DIOXIDE (test 23 mmol/L 21-32 N code = CO2) ANION GAP (test code 7.0 GAP calc 4.0-15.0 N = GAP) GLUCOSE (test code = 75 MG/DL 70-110 N GLU) BLOOD UREA NITROGEN 11 MG/DL 7-18 N (test code = BUN) CREATININE (test 0.68 MG/DL 0.55-1.30 N Results may be code = CREAT) depressed if patient is takingN-Acetylc yste ine (NAC) and Metamizole (Dipyrone). CALCIUM (test code = 8.8 MG/DL 8.5-10.1 N CA) INDEX HEMOLYSIS 2 TRACE 10-25 1 NORMAL (test code = MG Index/DL HEMINDEX) INDEX ICTERIC (test 1 NORMAL <2 MG 1 NORMAL code = ICTINDEX) Index/DL INDEX LIPEMIA (test 1 NORMAL <50 MG 1 NORMAL code = LIPINDEX) Index/DL HCG [id number] 18:52:00 Test Item Value Reference Range Interpretation Comments HCG SERUM (test code = HCG) mi-IU/ML 0-3 URINALYSIS [id number] 18:49:00 Test Item Value Reference Range Interpretation Comments UA COLOR (test code = STRAW DESCRIPT YELLOW COLU) UA APPEARANCE (test code CLEAR DESCRIPT CLEAR = APPU) UA GLUCOSE DIPSTICK (test NEGATIVE (0) mg/dL (NEG) 0 code = DGLUU) UA BILIRUBIN DIPSTICK NEGATIVE (0) mg/dL (NEG) 0 (test code = BILU) UA KETONE DIPSTICK (test TRACE mg/dL (NEG) 0 code = KETU) UA SPECIFIC GRAVITY (test 1.006 SG 1.001-1.035 code = SGU) UA BLOOD DIPSTICK (test NEGATIVE (0) mg/DL (NEG) 0 code = BERNABE) UA PH DIPSTICK (test code 6.0 pH UNITS 4.6-8.0 = JOSLYN) UA PROTEIN DIPSTICK (test NEGATIVE (0) mg/dL <30 (1+) code = PROU) UA UROBILINIOGEN DIPSTICK NORMAL (0) mg/dL <2.0 (1+) (test code = URO) UA NITRITE DIPSTICK (test NEGATIVE (0) SCREEN NEG code = OG) UA LEUKOCYTE ESTERASE NEGATIVE (0) (NEG) 0 DIPSTICK (test code = Leuk/mcL LEUU) UA WBC (test code = WBCU) 0-3 #WBC/HPF 0-3 UA RBC (test code = RBCU) 0-3 #RBC/HPF 0-3 UA SQUAMOUS CELLS (test RARE >0 /HPF NONE-SQepi code = SQU) URINALYSIS [id number] 18:48:00 Test Item Value Reference Range Interpretation Comments UA COLOR (test code = STRAW DESCRIPT YELLOW COLU) UA APPEARANCE (test code CLEAR DESCRIPT CLEAR = APPU) UA GLUCOSE DIPSTICK (test NEGATIVE (0) mg/dL (NEG) 0 code = DGLUU) UA BILIRUBIN DIPSTICK NEGATIVE (0) mg/dL (NEG) 0 (test code = BILU) UA KETONE DIPSTICK (test TRACE mg/dL (NEG) 0 code = KETU) UA SPECIFIC GRAVITY (test 1.006 SG 1.001-1.035 code = SGU) UA BLOOD DIPSTICK (test NEGATIVE (0) mg/DL (NEG) 0 code = BERNABE) UA PH DIPSTICK (test code 6.0 pH UNITS 4.6-8.0 = JOSLYN) UA PROTEIN DIPSTICK (test NEGATIVE (0) mg/dL <30 (1+) code = PROU) UA UROBILINIOGEN DIPSTICK NORMAL (0) mg/dL <2.0 (1+) (test code = URO) UA NITRITE DIPSTICK (test NEGATIVE (0) SCREEN NEG code = OG) UA LEUKOCYTE ESTERASE NEGATIVE (0) (NEG) 0 DIPSTICK (test code = Leuk/mcL LEUU) UA RBC (test code = RBCU) #RBC/HPF 0-3 CBC W/O [id number] 18:35:00 Test Item Value Reference Range Interpretation Comments WHITE BLOOD CELL (test code = WBC) 8.6 K/mm3 4.1-12.1 N RED BLOOD CELL (test code = RBC) 4.13 M/mm3 3.8-5.5 N HEMOGLOBIN (test code = HGB) 13.0 G/DL 10.6-15.8 N HEMATOCRIT (test code = HCT) 37.6 % 31.8-47.4 N MEAN CELL VOLUME (test code = MCV) 91.0 fL 80.1-101.1 N MEAN CELL HGB (test code = MCH) 31.5 pg 25.3-35.3 N MEAN CELL HGB CONCETRATION (test 34.6 G/DL 32.7-35.1 N code = MCHC) RED CELL DISTRIBUTION WIDTH (test 12.0 % 12.2-16.4 L code = RDW) PLATELET COUNT (test code = PLT) 210 K/mm3 155-337 N MEAN PLATELET VOLUME (test code = 11.6 fL 6.8-11.2 H MPV) HCG SERUM [id number] 02:56:00 Test Item Value Reference Range Interpretation Comments HCG SERUM QUAL (test code = HCGQL) NEG SCREEN NEG COMPREHENSIVE METABOLIC [id number] 02:14:00 Test Item Value Reference Range Interpretation Comments SODIUM (test code = 137.0 mmol/L 133-144 N NA) POTASSIUM (test code 3.7 mmol/L 3.5-5.1 N = K) CHLORIDE (test code 104 mmol/L 95-105 N = CL) CARBON DIOXIDE (test 24 mmol/L 21-32 N code = CO2) ANION GAP (test code 9.0 GAP calc 4.0-15.0 N = GAP) GLUCOSE (test code = 73 MG/DL 70-110 N GLU) BLOOD UREA NITROGEN 7 MG/DL 7-18 N (test code = BUN) GLOMERULAR 88 estGFR >60 The estimated FILTRATION RATE glomerular (test code = GFR) filtration rate is computed usingpatient ra ce, age, sex, and s karen creatinine. If any of theneeded da ta elements are mi ssing the Laboratory can notcompute an estimation of t he glomerular filtration rate .The GFR value units = ml/min/1.73 met er squared. EstimatedGFR va lues above 60 should be interpreted as >60, not anexact number.--- DRUG DOSAGE ALERT -- - Drug dosage adjustments uti lize different calculationpara meter s. CREATININE (test 0.75 MG/DL 0.55-1.30 N Results may be code = CREAT) depressed if p atient is takingN-Acetylc ystei ne (NAC) and Metamizole (Dipyrone). TOTAL PROTEIN (test 7.1 G/DL 6.4-8.2 N code = PROT) ALBUMIN (test code = 3.7 G/DL 3.4-5.0 N ALB) ALBUMIN/GLOBULIN 1.1 RATIO 1.2-2.2 L RATIO (test code = A/G) CALCIUM (test code = 8.9 MG/DL 8.5-10.1 N CA) BILIRUBIN TOTAL 0.38 MG/DL 0.00-1.00 N (test code = BILT) BILIRUBIN DIRECT 0.12 MG/DL 0.00-0.30 N (test code = BILD) BILIRUBIN INDIRECT 0.26 MG/DL 0.2-1.3 N (test code = BILIND) SGOT/AST (test code 17 Unit/L 15-37 N = AST) SGPT/ALT (test code 30 Unit/L 12-78 N = ALT) ALKALINE PHOSPHATASE 45 Unit/L 45-117 N TOTAL (test code = ALKP) INDEX HEMOLYSIS 1 NORMAL <10 1 NORMAL (test code = MG Index/DL HEMINDEX) INDEX ICTERIC (test 1 NORMAL <2 MG 1 NORMAL code = ICTINDEX) Index/DL INDEX LIPEMIA (test 1 NORMAL <50 1 NORMAL code = LIPINDEX) MG Index/DL [id number] 02:14:00 Test Item Value Reference Range Interpretation Comments ALCOHOL (test code = < 3 MG/DL 0-10 N MEDICAL ALCOHOL ALC) RESULTS. SITE W PREPPED WITH BE TADINE. <10 MG/DL ARE CONSIDERED NEGA TIVE. >400 MG/DL MAY BE FATAL.RESULTS F OR MEDICAL USE ONL Y. NOT TO BE USED FOR FORENSIC PURPOSES. COMPREHENSIVE METABOLIC [id number] 02:13:00 Test Item Value Reference Range Interpretation Comments SODIUM (test code = 137.0 mmol/L 133-144 N NA) POTASSIUM (test code 3.7 mmol/L 3.5-5.1 N = K) CHLORIDE (test code 104 mmol/L 95-105 N = CL) CARBON DIOXIDE (test 24 mmol/L 21-32 N code = CO2) ANION GAP (test code 9.0 GAP calc 4.0-15.0 N = GAP) GLUCOSE (test code = 73 MG/DL 70-110 N GLU) BLOOD UREA NITROGEN 7 MG/DL 7-18 N (test code = BUN) GLOMERULAR 88 estGFR >60 The estimated FILTRATION RATE glomerular (test code = GFR) filtration rate is computed usingpatient ra ce, age, sex, and s karen creatinine. If any of theneeded da ta elements are mi ssing the Laboratory can notcompute an estimation of t he glomerular filtration rate .The GFR value units = ml/min/1.73 met er squared. EstimatedGFR va lues above 60 should be interpreted as >60, not anexact number.--- DRUG DOSAGE ALERT -- - Drug dosage adjustments uti lize different calculationpara meter s. CREATININE (test 0.75 MG/DL 0.55-1.30 N Results may be code = CREAT) depressed if p atient is takingN-Acetylc ystei ne (NAC) and Metamizole (Dipyrone). TOTAL PROTEIN (test G/DL 6.4-8.2 code = PROT) ALBUMIN (test code = 3.7 G/DL 3.4-5.0 N ALB) ALBUMIN/GLOBULIN RATIO 1.2-2.2 RATIO (test code = A/G) CALCIUM (test code = 8.9 MG/DL 8.5-10.1 N CA) BILIRUBIN TOTAL MG/DL 0.00-1.00 (test code = BILT) BILIRUBIN DIRECT 0.12 MG/DL 0.00-0.30 N (test code = BILD) BILIRUBIN INDIRECT MG/DL 0.2-1.3 (test code = BILIND) SGOT/AST (test code 17 Unit/L 15-37 N = AST) SGPT/ALT (test code 30 Unit/L 12-78 N = ALT) ALKALINE PHOSPHATASE Unit/L 45-117 TOTAL (test code = ALKP) INDEX HEMOLYSIS 1 NORMAL <10 1 NORMAL (test code = MG Index/DL HEMINDEX) INDEX ICTERIC (test 1 NORMAL <2 MG 1 NORMAL code = ICTINDEX) Index/DL INDEX LIPEMIA (test 1 NORMAL <50 1 NORMAL code = LIPINDEX) MG Index/DL [id number] 02:13:00 Test Item Value Reference Range Interpretation Comments ALCOHOL (test code = < 3 MG/DL 0-10 N MEDICAL ALCOHOL ALC) RESULTS. SITE W PREPPED WITH BE TADINE. <10 MG/DL ARE CONSIDERED NEGA TIVE. >400 MG/DL MAY BE FATAL.RESULTS F OR MEDICAL USE ONL Y. NOT TO BE USED FOR FORENSIC PURPOSES. CBC W/AUTO [id number] 01:48:00 Test Item Value Reference Range Interpretation Comments WHITE BLOOD CELL (test code = 7.9 K/mm3 4.1-12.1 N WBC) RED BLOOD CELL (test code = RBC) 4.01 M/mm3 3.8-5.5 N HEMOGLOBIN (test code = HGB) 13.0 G/DL 10.6-15.8 N HEMATOCRIT (test code = HCT) 36.9 % 31.8-47.4 N MEAN CELL VOLUME (test code = 92.0 fL 80.1-101.1 N MCV) MEAN CELL HGB (test code = MCH) 32.4 pg 25.3-35.3 N MEAN CELL HGB CONCETRATION (test 35.2 G/DL 32.7-35.1 H code = MCHC) RED CELL DISTRIBUTION WIDTH 11.6 % 12.2-16.4 L (test code = RDW) RED CELL DISTRIBUTION WIDTH 39.1 fL 36.4-46.3 N (test code = RDW-SD) PLATELET COUNT (test code = PLT) 165 K/mm3 155-337 N MEAN PLATELET VOLUME (test code 12.8 fL 6.8-11.2 H = MPV) GRANULOCYTE % (test code = GR%) 45.4 % 37.8-82.6 N IMMATURE GRANULOCYTE % (test 0.3 % 0.0-2.0 N code = IG%) LYMPHOCYTE % (test code = LY%) 42.5 % 14.1-45.4 N MONOCYTE % (test code = MO%) 6.3 % 2.5-11.7 N EOSINOPHIL % (test code = EO%) 4.6 % 0.0-6.2 N BASOPHIL % (test code = BA%) 0.9 % 0.0-2.1 N NUCLEATED RBC % (test code = 0.0 /100WBC% 0.0-1.0 N NRBC%) GRANULOCYTE # (test code = GR#) 3.59 k/mm3 2.0-13.7 N IMMATURE GRANULOCYTE # (test 0.02 K/mm3 0.00-0.03 N code = IG#) LYMPHOCYTE # (test code = LY#) 3.35 K/mm3 0.6-3.8 N MONOCYTE # (test code = MO#) 0.50 K/mm3 0.11-0.59 N EOSINOPHIL # (test code = EO#) 0.36 K/mm3 0.0-0.4 N BASOPHIL # (test code = BA#) 0.07 K/mm3 0.0-0.1 N NUCLEATED RBC # (test code = 0.00 K/mm3 0.0-0.05 N NRBC#)
[2022-06-15] MEDS ORDERED: FAMOTIDINE 20 MG/2 ML VIAL IV ONE (03:54)
[2022-06-15] MEDS ORDERED: DIPHENHYDRAMINE 50 MG/ML VIAL ONE (03:54)
[2022-06-15] MEDS ORDERED: METHYLPREDNISOLONE 125 MG INJ ONE (03:54)
[2022-06-15] MEDS ORDERED: ONDANSETRON 4 MG/2 ML VIAL ONE (04:01)
--- NOTE | 2022-06-15 04:56 | EDPHYS ---
Physician Documentation [facility] Name: Amanda Lees Age: 37 yrs Sex: Female : 1985 Arrival Date: 06/15/2022 Time: 03:02 Bed 16 Private MD: ED Physician Jw Frank HPI: 06/15 04:56 This 37 yrs old Female presents to ER via Ambulatory with complaints of Allergic ms3 Reaction, Breathing Difficulty. 04:56 37-year-old female with no past medical history presents for allergic reactionitching ms3 and shortness of breath. Patient states the symptoms began after taking a Tylenol 3 1 hour prior to arrival. Patient states she has taken 50 mg of Benadryl 45 minutes prior to arrival. Patient denies alleviating or inciting factors. Patient endorses nausea. Patient denies fevers, chills, vomiting.. Historical: - Allergies: 04:05 No Known Allergies; vc1 - Home Meds: 04:05 Celexa Oral [Active]; Valium Oral [Active]; vc1 - PMHx: 04:05 Anxiety; Depression; vc1 - PSHx: 04:05 None; vc1 - Immunization history:: Adult Immunizations up to date. - Social history:: Smoking status: unknown. ROS: 04:56 Constitutional: Negative for fever, and chills. ENT: Negative for injury, pain, and ms3 discharge, Neck: Negative for injury, pain, and swelling, Cardiovascular: Negative for chest pain, and palpitations. 04:56 Back: Negative for injury and pain, MS/Extremity: Negative for injury and deformity. 04:56 Respiratory: Positive for shortness of breath. 04:56 Abdomen/GI: Positive for nausea. 04:56 Skin: Positive for Itching. 04:56 All other systems are negative. Exam: 04:56 Constitutional: This is a well developed, well nourished patient who is awake, alert, ms3 and in no acute distress. Head/Face: Normocephalic, atraumatic. Neck: Trachea midline, no cervical lymphadenopathy. Supple, full range of motion without nuchal rigidity, or vertebral point tenderness. No Meningismus. Chest/axilla: Normal chest wall appearance and motion. Nontender with no deformity. Cardiovascular: Regular rate and rhythm with a normal S1 and S2. No gallops, murmurs, or rubs. Normal PMI, no JVD. No pulse deficits. Respiratory: Lungs have equal breath sounds bilaterally, clear to auscultation and percussion. No rales, rhonchi or wheezes noted. No increased work of breathing, no retractions or nasal flaring. Abdomen/GI: Soft, non-tender, with normal bowel sounds. No distension or tympany. No guarding or rebound. No evidence of tenderness throughout. MS/ Extremity: Pulses equal, no cyanosis. Neurovascular intact. Full, normal range of motion. Psych: Awake, alert, with orientation to person, place and time. Behavior, mood, and affect are within normal limits. 04:56 Skin: rash a moderate rash is noted, rash can be described as erythematous, and is diffusely located. Vital Signs: 04:01 BP 109 / 82; Pulse 59; Resp 17 S; Temp 98.5(O); Pulse Ox 98% on R/A; lg3 05:18 BP 112 / 80; Pulse 61; Resp 17 S; Pulse Ox 100% on R/A; lg3 MDM: 03:07 Patient medically screened. ms3 04:56 Differential diagnosis: anaphylaxis, urticaria. Data reviewed: vital signs, nurses ms3 notes, and as a result, I will discharge patient. Data interpreted: Pulse oximetry: on room air is 100 %. Interpretation: normal. Counseling: I had a detailed discussion with the patient and/or guardian regarding: the historical points, exam findings, and any diagnostic results supporting the discharge/admit diagnosis, the need for outpatient follow up, to return to the emergency department if symptoms worsen or persist or if there are any questions or concerns that arise at home. ED course: On re-evaluation patient is improved, A/O x4, nad, non-toxic, ambulatory in ED, speaking full sentences.. Administered Medications: 03:51 Drug: SOLU-Medrol (methylPrednisoLONE) 125 mg Route: IVP; Site: left antecubital; lg3 05:20 Follow up: Response: No adverse reaction lg3 03:51 Drug: Pepcid (famotidine) 20 mg Route: IVP; Site: left antecubital; lg3 05:20 Follow up: Response: No adverse reaction lg3 03:51 Drug: Benadryl (diphenhydrAMINE) 25 mg Route: IVP; Site: left antecubital; lg3 05:20 Follow up: Response: No adverse reaction lg3 03:54 Drug: Zofran (Ondansetron) 4 mg Route: IVP; Site: left antecubital; lg3 05:19 Follow up: Response: No adverse reaction lg3 Disposition Summary: 06/15/22 04:56 Discharge Ordered Location: Home ms3 Condition: Stable ms3 Diagnosis - Allergic Reaction ms3 - Itching ms3 Followup: ms3 - With: Scottie Quiroz DO - When: 2 - 3 days - Reason: Recheck today's complaints Discharge Instructions: - Discharge Summary Sheet ms3 - Pruritus ms3 Forms: - Medication Reconciliation Form ms3 - Thank You Letter ms3 - Work release form ds4 - Antibiotic Education ms3 - Prescription Opioid Use ms3 Prescriptions: - Prednisone 20 mg Oral Tablet - take 2 tablets by ORAL route once daily for 5 days; 10 tablet; Refills: 0, ms3 Product Selection Permitted Signatures: Tati Thompson RN RN lg3 Jw Frank DO DO ms3 Rosalba Barnhart RN RN vc1
--- NOTE | 2022-06-15 04:56 | ER ---
Nurse's Notes [facility] Name: Amanda Lees Age: 37 yrs Sex: Female : 1985 Arrival Date: 06/15/2022 Time: 03:02 Bed 16 Private MD: Diagnosis: Allergic Reaction;Itching Presentation: 06/15 04:03 Chief complaint: Patient states: I took a tylenol 3 or 4 and now I am itching all over. vc1 Coronavirus screen: At this time, the client does not indicate any symptoms associated with coronavirus-19. Ebola Screen: No symptoms or risks identified at this time. Onset: The symptoms/episode began/occurred gradually. Anaphylaxis evaluation, no signs or symptoms of anaphylaxis were noted. Initial Sepsis Screen: Does the patient meet any 2 criteria? No. Patient's initial sepsis screen is negative. Does the patient have a suspected source of infection? No. Patient's initial sepsis screen is negative. Risk Assessment: Do you want to hurt yourself or someone else? Patient reports no desire to harm self or others. Onset of symptoms was June 14, 2022. 04:03 Method Of Arrival: Ambulatory vc1 04:03 Acuity: VIVEK 4 vc1 Triage Assessment: 04:06 General: Appears in no apparent distress. uncomfortable, Behavior is anxious, restless. vc1 Pain: Denies pain. EENT: No deficits noted. Neuro: Level of Consciousness is awake, alert, obeys commands, Oriented to person, place, time, situation, Appropriate for age. Cardiovascular: No deficits noted. Respiratory: Airway is patent Respiratory effort is even, unlabored, Respiratory pattern is regular, symmetrical. GI: No deficits noted. : No deficits noted. Derm: Skin scratches all over. Musculoskeletal: No deficits noted. Historical: - Allergies: 04:05 No Known Allergies; vc1 - Home Meds: 04:05 Celexa Oral [Active]; Valium Oral [Active]; vc1 - PMHx: 04:05 Anxiety; Depression; vc1 - PSHx: 04:05 None; vc1 - Immunization history:: Adult Immunizations up to date. - Social history:: Smoking status: unknown. Screenin:05 Abuse screen: Denies threats or abuse. Nutritional screening: No deficits noted. vc1 Tuberculosis screening: No symptoms or risk factors identified. Fall Risk None identified. Assessment: 04:46 General: Appears in no apparent distress. uncomfortable, Behavior is cooperative, lg3 anxious, fussy. Pain: Denies pain. Neuro: No deficits noted. Level of Consciousness is awake, alert, obeys commands, Oriented to person, place, time, situation. Cardiovascular: No deficits noted. Denies chest pain, shortness of breath, Capillary refill < 3 seconds Clubbing of nail beds is absent JVD is absent Patient's skin is warm and dry. Respiratory: No deficits noted. Airway is patent Trachea midline Respiratory effort is even, unlabored, Respiratory pattern is regular, symmetrical, Breath sounds are clear bilaterally. GI: No deficits noted. No signs and/or symptoms were reported involving the gastrointestinal system. Abdomen is flat, non-distended, Abd is soft and non tender X 4 quads. : No deficits noted. No signs and/or symptoms were reported regarding the genitourinary system. EENT: No deficits noted. No signs and/or symptoms were reported regarding the EENT system. Derm: Skin is intact, is healthy with good turgor, Skin is dry, Skin temperature is warm Reports itching, tingling. Musculoskeletal: No deficits noted. No signs and/or symptoms reported regarding the musculoskeletal system. Circulation, motion, and sensation intact. Range of motion: intact in all extremities. 05:18 Reassessment: Patient appears in no apparent distress at this time. No changes from lg3 previously documented assessment. Patient and/or family updated on plan of care and expected duration. Pain level reassessed. Patient is alert, oriented x 3, equal unlabored respirations, skin warm/dry/pink. Patient states feeling better. Patient states symptoms have improved. Vital Signs: 04:01 BP 109 / 82; Pulse 59; Resp 17 S; Temp 98.5(O); Pulse Ox 98% on R/A; lg3 05:18 BP 112 / 80; Pulse 61; Resp 17 S; Pulse Ox 100% on R/A; lg3 ED Course: 03:02 Patient arrived in ED. bp1 03:03 Jw Frank DO is Attending Physician. ms3 03:57 Tati Thompson, RN is Primary Nurse. lg3 04:05 Triage completed. vc1 04:08 Arm band placed on right wrist. vc1 04:46 Patient has correct armband on for positive identification. Bed in low position. Call lg3 light in reach. Side rails up X 1. Client placed on continuous cardiac and pulse oximetry monitoring. NIBP monitoring applied. Door closed. Noise minimized. Warm blanket given. 04:46 Inserted saline lock: 22 gauge in left antecubital area, using aseptic technique. Blood lg3 collected. 04:53 Scottie Quiroz DO is Referral Physician. ms3 05:19 No provider procedures requiring assistance completed. IV discontinued, intact, lg3 bleeding controlled, No redness/swelling at site. Pressure dressing applied. Administered Medications: 03:51 Drug: SOLU-Medrol (methylPrednisoLONE) 125 mg Route: IVP; Site: left antecubital; lg3 05:20 Follow up: Response: No adverse reaction lg3 03:51 Drug: Pepcid (famotidine) 20 mg Route: IVP; Site: left antecubital; lg3 05:20 Follow up: Response: No adverse reaction lg3 03:51 Drug: Benadryl (diphenhydrAMINE) 25 mg Route: IVP; Site: left antecubital; lg3 05:20 Follow up: Response: No adverse reaction lg3 03:54 Drug: Zofran (Ondansetron) 4 mg Route: IVP; Site: left antecubital; lg3 05:19 Follow up: Response: No adverse reaction lg3 Medication: 05:19 VIS not applicable for this client. lg3 Outcome: 04:56 Discharge ordered by MD. ms3 05:19 Discharged to home ambulatory. lg3 05:19 Condition: stable 05:19 Discharge instructions given to patient, Instructed on discharge instructions, medication usage, Demonstrated understanding of instructions, medications, Prescriptions given X 1. 05:19 Patient left the ED. lg3 Signatures: Tati Thompson, RN RN lg3 Jw Frank DO DO ms3 Brigitte España Vanessa, RN RN vc1
[2022-06-15 05:47] VITALS: TEMP 98.5
[2022-06-15 05:49] VITALS: BP 112/80; O2SAT 100
== END 2022-06-15 05:19 | disposition home or self-care (01) ==
LOC: ER 03:01
DX: L29.9 Pruritus, unspecified (principal); R06.02 Shortness of breath; R11.0 Nausea; F41.9 Anxiety disorder, unspecified; F32.A Depression, unspecified; R21 Rash and other nonspecific skin eruption
CPT/HCPCS: 96375; 96374; 99284; J1200; J2930; J2405; J3490

== ENCOUNTER 2022-11-04 16:24 | Emergency (ER) | payer OTHER ==
--- OUTSIDE RECORDS SUMMARY | 2022-11-04 16:29 | XMS REPORT | Continuity of Care Document ---
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 Scheduled Test 1984 00:00:00 COVID-19 Vaccine (#1) [facility] [code = COVID-19 Vaccine (#1)] Encounters Start End Encounter Admission Attending Care Care Encounter Source Date/Time Date/Time Type Type Clinicians Facility Department ID 2022-03-24 Outpatient [facility] [id number] [place] 14:13:21 Health 2022-03-04 Outpatient [facility] [id number] [place] 13:49:44 [facility] 2021-09-25 Outpatient [facility] [id number] [place] 09:53:09 [id number] Communi ty [facility] 2021-09-23 Emergency [facility] [id number] Univers 00:54:38 [facility] 2021-06-15 Outpatient SLY [facility] [id number] [facility] 17:20:53 FRANCISCO 2020-09-08 Inpatient HCANW ADAN [id number] [facility] 22:22:00 36 [facility] 2020-04-25 Inpatient RAMON Puente, HCACR DAYS [id number] [facility] 11:15:00 Zachariah 02 [facility] 2020-01-21 Inpatient HCACR ADAN [id number] [facility] 16:53:00 [id number] [facility] 2022-10-04 2022-10-04 Emergency X DEVORAH [facility] ERT [id number] Univers 18:19:00 21:23:00 MARTHA [facility]on [facility] 2022-10-04 2022-10-04 Emergency Stephanie Franklin [facility] [id number] Univers 18:19:00 21:23:00 Martha Pacheco 350.1.13.10 ity [facility] 4.2.7.2.686 [facility] [id number] [address] 2022-09-22 2022-09-22 Emergency [facility] [id number] Univers 10:46:00 14:02:00 [facility] 2022-09-22 2022-09-22 [facility] [id number] Univers 10:46:00 14:02:00 Pavel EUCEDA 350.1.13.10 i ty [facility] 4.2.7.2.686 [facility] [id number] [address] 2022-06-30 2022-06-30 Outpatient R MERLENE [facility] [id number] Univers 09:15:00 09:15:00 DEBRA [id number] ity o f [facility] 2022-06-30 2022-06-30 Outpatient R AKINSIPE, [facility] [id number] Univers 09:15:00 09:15:00 DEBRA ityary husain [facility] 2022-05-27 2022-05-27 Outpatient , [facility] [id number] [place] 00:00:00 00:00:00 [facility] 2022-04-24 2022-04-24 Outpatient EBENEZER [facility] [id number] [place] 00:00:00 00:00:00 Joshua MARTINEZ th KATIE 2022-04-11 2022-04-11 Outpatient JAMILA, USMAN [facility] [id number] [place] 00:00:00 00:00:00 [facility] 2022-03-19 2022-03-19 [facility]ath [facility] [id number] [place] 14:00:00 14:00:00 Critical access hospital 2022-03-19 2022-03-19 [facility] [id number] [place] 06:39:00 13:54:08 [facility] 2022-03-07 2022-03-07 Outpatient EBENEZER [facility] [id number] [place] 00:00:00 00:00:00 REQUJoshua LA th KATIE 2022-03-07 2022-03-07 Outpatient LUCILA, [facility] [id number] [place] 00:00:00 00:00:00 [facility] 2022-03-06 2022-03-06 Outpatient JAMILA, USMAN [facility] [id number] [place] 00:00:00 00:00:00 [facility] 2022-03-05 2022-03-05 Telemsrinath [facility] [id number] [place] 15:00:00 15:40:36 ne Corby Ramírez Josuhat 2022-03-05 2022-03-05 Outpatient [facility] [id number] [place] 07:21:01 15:40:36 [facility] 2022-03-05 2022-03-05 Orders [facility] [id number] [place] 00:00:00 00:00:00 Only Corby M Healt [facility] 2022-01-24 2022-01-24 Outpatient RACHEAL BLAKELY, [facility] [id number] [place] 15:25:58 23:59:00 [facility] 2021-12-24 2021-12-25 Emergency [facility] [id number] [place] 14:17:00 19:55:00 GERMAINE [facility] 2021-12-24 2021-12-25 Emergency [facility] [id number] 85 [place] 14:17:00 19:55:00 Germaine A [facility] 2021-12-25 2021-12-25 [facility] [id number] [place] 00:00:00 00:00:00 [facility] 2021-12-24 2021-12-24 Emergency 1 [facility] [id number] [place] 14:17:00 14:17:00 [facility] 2021-08-22 2021-08-25 Outpatient [facility] [id number] [place] 01:05:00 04:53:00 [facility] 2021-08-22 2021-08-22 Outpatient 1 [facility] [id number] [place] 01:05:00 01:05:00 [facility] 2021-08-22 2021-08-22 Emergency [facility] [id number] [place] 00:00:00 00:00:00 [facility] 2021-08-22 2021-08-22 [facility] [id number] [place] 00:00:00 00:00:00 [facility] 2021-08-21 2021-08-21 Outpatient FATEMEH [facility] [id number] [place] 21:06:54 23:59:00 , JAYSON Josepooja [facility] 2021-05-05 2021-05-07 Emergency [facility] [id number] 22:52:00 18:16:00 Amanda Euceda 350.1.13.10 [place] 4.2.7.2.686 [place] [id number] 2021-05-05 2021-05-07 Emergency [facility] [id number] [facility] 22:52:00 18:16:00 Amanda Euceda 350.1.13.10 ity [place] 4.2.7.2.686 [facility] [id number] [place] [address] [place] 2020-04-25 2020-04-25 Outpatient EL Young, HCACR DAYS [id number] [facility] 05:31:00 05:31:00 Zachariah [id number] [facility] 2020-04-20 2020-04-20 Outpatient Kwame, HCACL OUTD [id number] [facility] 13:22:00 13:22:00 Zachariah Cord[facility] 2020-04-20 2020-04-20 Outpatient Kwame, [facility] OUTD [id number] [facility] 13:22:00 13:22:[address] Results Test Description Test Time Test Comments Results Result Comments Source POCT TEST 2022-10-05 01:10:00 Test Item Value Reference Range Interpretation Comme nts On board controls acceptable with C Line (test code = 3574) present POCT PREG LOT # (test code = 3575) [id number] POCT PREG TEST DATE (test code = 3576) 2023-01-20 POCT PREG (test code = 1605) negative Lab Interpretation (test code = 73295-0) Normal [facility] WITH [id number] 01:09:20 Test Item Value Reference Range Interpretation Comments WBC (test code = See_Comment [Automated 6590-2) message] The sy stem which generated this result transmitted reference range : 4.30 - 11.10 10*3/?L. The reference range was not used to interpret this result as normal/abnormal . RBC (test code = See_Comment [Automated 587-8) message] The sy stem which generated this result transmitted reference range : 3.93 - 5.25 10*6/?L. The reference range was not used to interpret this result as normal/abnormal . HGB (test code = 14.5 g/dL 11.6-15.0 718-7) HCT (test code = 41.0 % 35.7-45.2 4544-3) MCV (test code = 86.3 fL 80.6-95.5 787-2) MCH (test code = 30.5 pg 25.9-32.8 785-6) MCHC (test code = 35.4 g/dL 31.6-35.1 H 786-4) RDW-SD (test code = 38.1 fL 39.0-49.9 L 38468-0) RDW-CV (test code = 12.0 % 12.0-15.5 788-0) PLT (test code = See_Comment [Automated 777-3) message] The sy stem which generated this result transmitted reference range : 166 - 358 10*3/ ?L. The reference r evelina was not used to interpret this result as normal/abnormal . MPV (test code = 11.8 fL 9.5-12.9 16245-2) NRBC/100 WBC (test See_Comment [Automat ed code = 0524057135) message] The system which generated this result transmitted reference range : 0.0 - 10.0 /100 WBCs. The refer ence range was not u sed to interpret th is result as normal/abnormal . NRBC x10^3 (test code See_Comment [Auto mated = 4079659252) message] The s ystem which generated this result transmitted reference range : 10*3/?L. The reference range was not used to interpret this result as normal/abnormal . GRAN MAT (NEUT) % 57.9 % (test code = 770-8) IMM GRAN % (test code 0.50 % = 0022570713) LYMPH % (test code = 31.5 % 736-9) MONO % (test code = 6.0 % 5905-5) EOS % (test code = 3.1 % 713-8) BASO % (test code = 1.0 % 706-2) GRAN MAT x10^3(ANC) 5.03 10*3/uL 1.88-7.09 (test code = 5599320189) IMM GRAN x10^3 (test 0.04 10*3/uL 0.00-0.06 code = 8758758929) LYMPH x10^3 (test code 2.74 10*3/uL 1.32-3.29 = 731-0) MONO x10^3 (test code 0.52 10*3/uL 0.33-0.92 = 742-7) EOS x10^3 (test code = 0.27 10*3/uL 0.03-0.39 711-2) BASO x10^3 (test code 0.09 10*3/uL 0.01-0.07 H = 704-7) Lab Interpretation Abnormal (test code = 25080-7) [facility]. METABOLIC PANEL (28706)2022-10-05 01:05:39 Test Item Value Reference Range Interpretation Comments NA (test code = 140 mmol/L 135-145 5618777819) K (test code = 4.5 mmol/L 3.5-5.0 7918177568) CL (test code = 103 mmol/L 98-108 7812166731) CO2 TOTAL (test code = 29 mmol/L 23-31 0692214825) AGAP (test code = 2-16 5143495274) BUN (test code = 11 mg/dL 7-23 9201568935) GLUCOSE (test code = 109 mg/dL 70-110 0795397346) CREATININE (test code = 1.12 mg/dL 0.50-1.04 H 0034295494) TOTAL BILI (test code = 0.7 mg/dL 0.1-1.6 9828407597) CALCIUM (test code = 9.3 mg/dL 8.6-10.6 3350502471) T PROTEIN (test code = 7.5 g/dL 6.3-8.2 2010086302) ALBUMIN (test code = 4.7 g/dL 3.5-5.0 3491007368) ALK PHOS (test code = 61 U/L 34-122 8443848831) ALTv (test code = 29 U/L 5-35 1742-6) AST(SGOT) (test code = 29 U/L 13-40 4598355914) eGFR (test code = mL/min/1.73m2 9478551855) CHRYSTAL (test code = CHRYSTAL) Association of [...] tests). Lab Interpretation Abnormal (test code = 42444-8) [facility] OR CYNTHIA ONLY - [id number] 18:39:28 Test Item Value Reference Range Interpretation Comments RPR (Qualitative) (test code = Nonreactive Nonreactive 99798-7) Lab Interpretation (test code = Normal 16856-4) [facility] WITH [id number] 17:47:56 Test Item Value Reference Range Interpretation Comments HIV Negative Negative Semi-quantitative (test code = 00014-3) CHRYSTAL (test code = Non-reactive for HIV-1 CHRYSTAL) antigen and HIV-1/HIV-2 antibodies. ?No laboratory evidence of HIV infection. ?Repeat in 2-4 weeks if acute HIV infection is suspected. [facility]OLIC PAN[facility] (73631)2022-09-22 17:10:28 Test Item Value Reference Range Interpretation Comments NA (test code = 139 mmol/L 135-145 0888599807) K (test code = 4.1 mmol/L 3.5-5.0 8705182896) CL (test code = 101 mmol/L 98-108 7382456884) CO2 TOTAL (test code = 26 mmol/L 23-31 9442852036) AGAP (test code = 2-16 5181686462) BUN (test code = 9 mg/dL 7-23 8205049682) GLUCOSE (test code = 93 mg/dL 70-110 5378855346) CREATININE (test code = 0.80 mg/dL 0.50-1.04 4234245730) TOTAL BILI (test code = 0.3 mg/dL 0.1-1.6 4633273866) CALCIUM (test code = 9.6 mg/dL 8.6-10.6 3222410377) T PROTEIN (test code = 7.3 g/dL 6.3-8.2 6112706940) ALBUMIN (test code = 4.7 g/dL 3.5-5.0 9245945266) ALK PHOS (test code = 58 U/L 34-122 5230362933) ALTv (test code = 60 U/L 5-35 H 1742-6) AST(SGOT) (test code = 26 U/L 13-40 0786648518) eGFR (test code = mL/min/1.73m2 8904095047) CHRYSTAL (test code = CHRYSTAL) Association of [...] tests). Lab Interpretation Abnormal (test code = 71999-8) [facility] 17:09:46 Test Item Value Reference Range Interpretation Comments LIPASE (test code = 0434633948) 116 U/L 0-220 Lab Interpretation (test code = Normal 33140-9) [facility] WITH [id number] 16:49:23 Test Item Value Reference Range Interpretation Comments [...] as normal/abnormal . HGB (test code = 14.1 g/dL 11.6-15.0 718-7) HCT (test code = 39.8 % 35.7-45.2 4544-3) MCV (test code = 86.0 fL 80.6-95.5 787-2) MCH (test code = 30.5 pg 25.9-32.8 785-6) MCHC (test code = 35.4 g/dL 31.6-35.1 H 786-4) RDW-SD (test code = 39.2 fL 39.0-49.9 72072-4) RDW-CV (test code = 12.6 % 12.0-15.5 788-0) PLT (test code = See_Comment [Automated 777-3) message] The sy stem which generated this result transmitted reference range : 166 - 358 10*3/ ?L. The reference r evelina was not used to interpret this result as normal/abnormal . MPV (test code = 12.4 fL 9.5-12.9 50476-5) NRBC/100 WBC (test See_Comment [Automat ed code = 5627315336) message] The system which generated this result transmitted reference range : 0.0 - 10.0 /100 WBCs. The refer ence range was not u sed to interpret th is result as normal/abnormal . NRBC x10^3 (test code See_Comment [Auto mated = 7593220074) message] The s ystem which generated this result transmitted reference range : 10*3/?L. The reference range was not used to interpret this result as normal/abnormal . GRAN MAT (NEUT) % 45.4 % (test code = 770-8) IMM GRAN % (test code 0.40 % = 6406033479) LYMPH % (test code = 42.9 % 736-9) MONO % (test code = 5.9 % 5905-5) EOS % (test code = 4.4 % 713-8) BASO % (test code = 1.0 % 706-2) GRAN MAT x10^3(ANC) 3.64 10*3/uL 1.88-7.09 (test code = 3471996744) IMM GRAN x10^3 (test 0.03 10*3/uL 0.00-0.06 code = 8539247707) LYMPH x10^3 (test code 3.44 10*3/uL 1.32-3.29 H = 731-0) MONO x10^3 (test code 0.47 10*3/uL 0.33-0.92 = 742-7) EOS x10^3 (test code = 0.35 10*3/uL 0.03-0.39 711-2) BASO x10^3 (test code 0.08 10*3/uL 0.01-0.07 H = 704-7) Lab Interpretation Abnormal (test code = 61057-8) [facility] [id number] 16:46:00 Test Item Value Reference Range Interpretation Comments POCT PREG (test code = 1605) negative On board controls acceptable with C present Line (test code = 3574) Lab Interpretation (test code = Normal 95741-4) [facility], CoVID-19, [id number] 12:02:31 Test Item Value Reference Interpretation Comments Range COVID-19 Not Detected Not Detected INTERPRETATION: (SARS-COV-2) (test No detect able code = 63158-8) levels of SARS-CoV-2 Coronavirus (COVID-19) were present in this patient's sampl e by this test. A not detected result does not exclude the possibility of active infectio n with this virus due to other factors that ma y affect the results such as a poorly collected sample, viral titers below th e limit of detection of th e assay, and the infrequent possibility of inhibitors in the sample. Thi s result should b e interpreted in conjunction wit h clinical, radiographic, and other laboratory findings and should not be used as the claudia e indicator of active infectio n with SARS-CoV-2 Coronavirus (COVID-19). CHRYSTAL (test code = COMMENT: This urbano CHRYSTAL) real-time reverse transcriptase polymerase chain reaction (RT-PCR) test rapidly detects SARS-CoV-2 (COVID-19) virus from nasopharyngeal and nasal swab specimens. In accordance with the FDA's guidance document "Policy for Diagnostic Tests for Coronavirus Disease-2019 during the Public Health Emergency", this test was developed, and its performance characteristics were verified by the [facility] molecular diagnostics laboratory and is authorized for clinical diagnostic use. This laboratory is certified under the Clinical Laboratory Improvement Amendments (CLIA) as qualified to perform high complexity clinical laboratory testing. Lab Interpretation Normal (test code = 40880-8) [facility]-CoV-2 RNA Resp Ql [id number] 12:02:31 Test Item Value Reference Range Interpretation Comments Hospitalized? (test No code = 50205-5) ICU? (test code = No 63665-9) Symptomatic as defined No by CDC? (test code = 83278-4) Employed in No Healthcare? (test code = 27179-0) Resident in a No congregate care setting (including nursing homes, residential care for people with intellectual and developmental disabilities, psychiatric treatment facilities, group homes, board and care homes, homeless assisted, foster care or other): (test code = 63940-2) ? (test code = No 20965-7) SARS-CoV-2 RNA Resp Ql NOT DETECTED Not Detected INTER PRETATION: No LYNN+probe (test code = detec table levels 53389-1) of SARS-CoV-2 Coronavirus (COVID-19) were present in [...] n with SARS-CoV-2 Coronavirus (COVID-19). COMMENT: This urbano real-time reverse transcriptase polymerase chain reaction (RT-PCR) test rapidly detects SARS-CoV-2 (COVID-19) virus from nasopharyngeal and nasal swab specimens. In accordance with the FDA's guidance document "Policy for Diagnostic Tests for Coronavirus Disease-2019 during the Public Health Emergency", this test was developed, and its performance characteristics were verified by the [facility] molecular diagnostics laboratory and is authorized for clinical diagnostic use. This laboratory is certified under the Clinical Laboratory Improvement Amendments (CLIA) as qualified to perform high complexity clinical laboratory testing.HHSHIV 1+2 Ab+HIV1 p24 Ag SerPl Ql [id number] 16:15:14 Test Item Value Reference Range Interpretation Comments HIV 1+2 Ab+HIV1 p24 Ag SerPl Ql IA NEGATIVE Negative (test code = 53776-9) YBDIWHI-JuI-2 RNA Resp Ql LYNN+[id number] 19:44:08 Test Item Value Reference Range Interpretation Comments Hospitalized? (test No code = 24476-1) ICU? (test code = No 81475-0) Symptomatic as defined No by CDC? (test code = 96186-1) Employed in No Healthcare? (test code = 36271-8) Resident in a No congregate care setting (including nursing homes, residential care for people with intellectual and developmental disabilities, psychiatric treatment facilities, group homes, board and care homes, homeless assisted, foster care or other): (test code = 56225-1) ? (test code = No 99724-7) SARS-CoV-2 RNA Resp Ql NOT DETECTED Not Detected INTER PRETATION: No LYNN+probe (test code = detec table levels 70866-0) of SARS-CoV-2 Coronavirus (COVID-19) were present in [...] n with SARS-CoV-2 Coronavirus (COVID-19). COMMENT: This [employer] Xpert Xpress SARS-CoV-2 real-time PCR test was developed, and its performance characteristics determined by the [facility] molecular diagnostic Laboratory and is acceptablefor patient testing. It has been approved for patient testing by the FDA under the Emergency Use Auth orization pathway. This laboratory is certified under federal CLIA regulations to perform this type of high complexity testing.HHSCORONAVIRUS COVID-19 TESTING 2021-05-07 08:41:12 Test Item Value Reference Range Interpretation Comments SARS-CoV-2 NAAT (test Not Detected Not Detected code = 84558-5) CHRYSTAL (test code = CHRYSTAL) [employer]ep[employer] Xpert ?Xpress SARS-CoV-2 Assay is a rapid, real-time RT-PCR test intended for the qualitative detection of nucleic acid from the SARS-CoV-2 in nasopharyngeal (HEAD ATHLETIC TRAINER/STRENGTH COACH) specimens. It is used under Emergency Use [...] indicated. Lab Interpretation Normal (test code = 09044-3) [facility] ([facility]OUT INDEX)2021-05-07 03:04:56 Test Item Value Reference Range Interpretation Comments CK-MB (test code = 0.26 ng/mL See_Comment [Automat ed 9458660003) message] The system which generated this result transmitted reference range : <=3.50. The reference range was not used to interpret this result as normal/abnormal . CHRYSTAL (test code = CHRYSTAL) Biotin has been reported to cause a negative bias, interpret results relative to patient's use of biotin. Lab Interpretation Normal (test code = 42255-3) [facility]OT[facility] [id number] 13:45:16 Test Item Value Reference Range Interpretation Comments K (test code = 5875736711) 3.6 mmol/L 3.5-5.0 Lab Interpretation (test code = Normal 33011-2) [facility] Metabolic Panel (NA, K, CL, CO2, GLUCOSE, BUN, CREATININE, CA)2021-05-06 06:41:14 Test Item Value Reference Range Interpretation Comments NA (test code = 139 mmol/L 135-145 8181283047) K (test code = 2.8 mmol/L 3.5-5.0 LL 7332056558) CL (test code = 99 mmol/L 98-108 2206802509) CO2 TOTAL (test code = 26 mmol/L 23-31 6934298491) AGAP (test code = 2-16 9913760428) BUN (test code = 9 mg/dL 7-23 8956326641) GLUCOSE (test code = 110 mg/dL 70-110 7307519339) CREATININE (test code = 0.86 mg/dL 0.50-1.04 3180459174) CALCIUM (test code = 9.9 mg/dL 8.6-10.6 5345958995) eGFR (test code = mL/min/1.73m2 9395457054) CHRYSTAL (test code = CHRYSTAL) Association of [...] tests). Lab Interpretation Abnormal (test code = 00718-5) [facility] (ALB, T.PRO, BILI T, BU/BC, ALT, AST, ALK PHOS)2021-05-06 06:38:33 Test Item Value Reference Range Interpretation Comments TOTAL BILI (test code = 0280070647) 0.6 mg/dL 0.1-1.1 BILI UNCON (test code = 2618690132) 0.4 mg/dL 0.1-1.1 BILI CONJ (test code = 2778787551) 0.0 mg/dL 0.0-0.3 T PROTEIN (test code = 5126975693) 8.3 g/dL 6.3-8.2 H ALBUMIN (test code = 1977415559) 4.9 g/dL 3.5-5.0 ALK PHOS (test code = 8611299018) 60 U/L 34-122 ALTv (test code = 1742-6) 15 U/L 5-35 AST(SGOT) (test code = 2956137061) 23 U/L 13-40 Lab Interpretation (test code = Abnormal 43916-6) [facility] (IMMUNOASSAY) - COMPREHENSIVE DRUG [id number] 06:17:10 Test Item Value Reference Range Interpretation Comments AMPHET (test code = Presumptive Positive Negative A 2584190702) CHARLIE U (test code = Negative Negative 0939803269) BENZO U (test code = Negative Negative 9606773837) Cocaine Metabolite (test Negative Negative code = 7979610414) METHADONE (test code = Negative Negative [id number]) OPIATES (test code = Presumptive Positive Negative A 1722874487) PCP (test code = Negative Negative 1624435327) THC (test code = Negative Negative 9768218695) CHRYSTAL (test code = CHRYSTAL) Urine Drug [...] testing). Lab Interpretation (test Abnormal code = 72449-8) [facility] Skqwg2901-[facility] 05:41:39 Test Item Value Reference Range Interpretation Comments ALCOHOL (test code = <10 mg/dL 0953093552) CHRYSTAL (test code = CHRYSTAL) <10 Fehklwkb08-415 Toxic>100 Depression of CLAIM ATTORNEY>400 Fatalities Reported [facility]2021-[facility]-14 05:41:34 Test Item Value Reference Range Interpretation Comments SALICYLATE (test code <10 mg/L = 4400532876) CHRYSTAL (test code = CHRYSTAL) Therapeutic Range: ? Analgesic and Antipyretic Use ? 20-100 mg/L ? ? Anti-Inflammatory Use ? 100-250 mg/L Toxic Range: ? Greater than 300 mg/L [facility]INOPHEN2021-06-14 05:41:14 Test Item Value Reference Range Interpretation Comments ACETAMINOP (test code = <10.0 10.0-30.0 L 4047202944) CHRYSTAL (test code = CHRYSTAL) Toxic: Greater than 200 ug/mL @ 4 hour post ingestion or greater than 50 ug/mL @ 12 hour post ingestion Lab Interpretation (test Abnormal code = 43574-6) [facility] (ID NOW RAPID TESTING)2021-05-06 04:35:50 Test Item Value Reference Range Interpretation Comments SARS-CoV-2 Rapid ID NOW Not Detected Not Detected (test code = 22449-2) CHRYSTAL (test code = CHRYSTAL) ID NOW COVID-19 Assay is an isothermal nucleic acid amplification test intended for the qualitative detection of nucleic acid from SARS-CoV-2 viral RNA in nasopharyngeal (HEAD ATHLETIC TRAINER/STRENGTH COACH) specimens. It is used under Emergency Use [...] indicated. Lab Interpretation Normal (test code = 45632-8) [facility]inalysis20[facility] 04:29:33 Test Item Value Reference Range Interpretation Comments APPEARANCE (test code = Hazy Clear A 9082123204) COLOR (test code = Elva Yellow A 0394369798) PH (test code = 4.8-8.0 7996836104) SP GRAVITY (test code = 1.003-1.030 H 9165428085) GLU U QUAL (test code = Normal Normal 0453807469) BLOOD (test code = Negative Negative 6781354486) KETONES (test code = 5 mg/dL Negative A 4638119072) PROTEIN (test code = 30 mg/dL Negative A 2887-8) UROBILIN (test code = 2.0 mg/dL Normal A 0655896621) BILIRUBIN (test code = 2 mg/dL Negative A 1802772079) NITRITE (test code = Negative Negative 1917333448) LEUK KARINE (test code = 75/uL Negative A 8729542301) RBC/HPF (test code = See_Comment H [Autom ated message] 3941586123) The system [employer] generated this result transmit yi reference range : 0 - 3 HPF. The refe rence range was not u sed to interpret th is result as normal/abnormal . WBC/HPF (test code = See_Comment H [Autom ated message] 6431451309) The system [employer] generated this result transmit yi reference range : 0 - 5 HPF. The refe rence range was not u sed to interpret th is result as normal/abnormal . BACTERIA (test code = Few Negative A 9856945026) MUCOUS (test code = Marked Negative LPF A 8896855325) SQ EPITH (test code = HPF 9027973692) HYAL CAST (test code = See_Comment H [Aut omated message] 5852969213) The system [employer] generated this result transmit yi reference range : <=2 LPF. The refere nce range was not u sed to interpret th is result as normal/abnormal . Lab Interpretation (test Abnormal code = 17078-7) [facility] with Jvfkkkikqjay9402-39-72 04:15:45 Test Item Value Reference Range Interpretation [...] (test code = 37.9 fL 39.0-49.9 L 76680-2) RDW-CV (test code = 12.2 % 12.0-15.5 788-0) PLT (test code = See_Comment [Automated 777-3) message] The sy stem which generated this result transmitted reference range : 166 - 358 10*3/ ?L. The reference r evelina was not used to interpret this result as normal/abnormal . MPV (test code = 12.2 fL 9.5-12.9 48747-5) NRBC/100 WBC (test See_Comment [Automat ed code = 4060057947) message] The system which generated this result transmitted reference range : 0.0 - 10.0 /100 WBCs. The refer ence range was not u sed to interpret th is result as normal/abnormal . NRBC x10^3 (test code <0.01 See_Comment [Auto mated = 2140529641) message] The s ystem which generated this result transmitted reference range : 10*3/?L. The reference range was not used to interpret this result as normal/abnormal . GRAN MAT (NEUT) % 57.5 % (test code = 770-8) IMM GRAN % (test code 0.30 % = 6837539008) LYMPH % (test code = 33.7 % 736-9) MONO % (test code = 6.8 % 5905-5) EOS % (test code = 0.7 % 713-8) BASO % (test code = 1.0 % 706-2) GRAN MAT x10^3(ANC) 5.18 10*3/uL 1.88-7.09 (test code = 8861703062) IMM GRAN x10^3 (test 0.03 10*3/uL 0.00-0.06 code = 7817389663) LYMPH x10^3 (test code 3.04 10*3/uL 1.32-3.29 = 731-0) MONO x10^3 (test code 0.61 10*3/uL 0.33-0.92 = 742-7) EOS x10^3 (test code = 0.06 10*3/uL 0.03-0.39 711-2) BASO x10^3 (test code 0.09 10*3/uL 0.01-0.07 H = 704-7) Lab Interpretation Abnormal (test code = 14869-7) [facility] [id number] 04:08:00 Test Item Value Reference Range Interpretation Comments POCT PREG (test code = 1605) negative On board controls acceptable with C present Line (test code = 3574) Lab Interpretation (test code = Normal 21057-4) [facility] [id number] 01:00:00 [facility] : 1985 Sex: FPatient Name: AMANDA LEES Unit No: [id number] EXAMS: CPT: [id number] CT ABD PELVIS W/CONT 12627 CT ABDOMEN AND PELVIS WITH IV CONTRAST: [...] are seen. Bowel loops are normal in caliber. There is no free fluid in the abdomen [...] 377.14 mGy-cm IV Contrast: 100 ml Isovue 300.CT dose optimization is achieved for this examination by the use of a CT protocol in accordance withACR practice standards and adherence to palaeontologist's recommendations with automated exposure control. at 0100 Reported and signed by: Jefferson Alvarado MD CC: Technologist: JUANJOSE G.; Rowdy V. CTDI: 7.55 DLP: 377.14 Trscr Dt/Tm: 09/09/2020 (0100) by:[email or web address] Orig Print D/T: S: 09/09/2020 (0103) BATCH NO: N/A Name: AMANDA LEES [facility] ED Phys: [id number] - Melvin Alvaradof [address] [place] : 1985 Age: 35 Sex: F [place], [place] [address] Loc: N.ERS Exam Date: 09/08/2020 Status: REG ER PH: FAX: PAGE 1 Signed ReportCOMPREHENSIVE METABOLIC [id number] 00:21:00 Test Item Value Reference Range Interpretation [...] 42-121 N PHOSPHATASE (test code = ALKP) [id number] 00:21:00 Test Item Value Reference Range Interpretation Comments LIPASE (test code = LIP) 35 IU/L 22-51 N URINALYSIS [id number] 23:59:00 Test Item Value Reference Range Interpretation [...] MUCU) 2+ /LPF NONE SEEN UR HCG [id number] 23:58:00 Test Item Value Reference Range Interpretation Comments UR HCG QUAL (test code = HCGQLU) NEGATIVE NEGATIVE HCG SERUM [id number] 23:52:00 Test Item Value Reference Range Interpretation Comments HCG SERUM QUAL NEGATIVE NEGATIVE This is a suzanne litative (test code = HCGQL) screenin g test.The quantitative Bh cg may be helpful.Weakly positive results should be repeated in 48 hours. CBC W/AUTO [id number] 23:46:00 Test Item Value Reference Range Interpretation [...] 0.1 x10 3/uL 0.0-0.1 N CBC W/AUTO [id number] 23:41:00 Test Item Value Reference Range Interpretation [...] code = EO#) x10 3/uL 0.0-0.5 FALLOPIAN [id number] 09:35:00 RUN DATE: 04/26/20 [place] - Lab PAGE 1 RUN TIME: 934 Specimen Inquiry RUN USER: INTERFACE PATIENT : AMANDA LEES LOC: SANDY U #: [id number] AGE/SX: 35/F ROOM: RE04/25/20[facility] DR: Zachariah Puente : 83 BED: DIS: STATUS: [facility] TLOC: SPEC #: [id number] RECD: 04/25/20 STATUS: IAN TODD #: [id number] MEL: 04/25/[address] [facility] [address]: Zachariah Puente MD ENTERED: 04/25/20 SP TYPE: FALLOPIAN OTHR DR: No Primary or Family PhysicianORDERED: KASHMIR L2-19341, BLOCK-CT/SL-NBC/2, SLIDE-CT/SL- NBC/2 COPIES TO: No Primary or Family Physician Zachariah Puente MD [address] [place] [address]. [address] [place] [address] PROCEDURES: KASHMIR L2- 68066 (04/25/20) BLOCK-CT/SL-NBC (04/25/20) SLIDE-CT/SL-NBC (04/25/20854) TISSUES: A. FALLOPIAN TUBE - BILATERAL CLINICAL HISTORY STERILIZATION FINAL DIAGNOSIS FALLOPIAN TUBES, BILATERAL, SALPINGECTOMY: - COMPLETE CROSS SECTIONS OF FALLOPIAN TUBE LUMENS IDENTIFIED - BENIGN CYSTIC WALTHARD CELL NESTS CPT Codes: 02366 x 2 GROSS DESCRIPTION The paperwork, container, and cassettes are all labeled A00-8644. Received in formalin, labeled with the patient's name (Amanda Lees), medical record number, and "bilateral fallopian tubes" are two segments of fimbriated fallopian tube without designation as to laterality. The first segment is 4 cm in length x 0.8 cm in diameter. Within the fimbriae is an intact 0.5 cm in greatest dimensionthin-walled, smooth-lined, serous-filled cyst. The lumen is pinpoint. The second segment is 5 cm in length x 0.7 cm in diameter. Near the fimbriae are thin-walled, smooth-lined, serous-filled cysts up to 0.3 x 0.2 cm. The CONTINUED ON NEXT PAGE RUN DATE: 04/26/20 [place] - Lab PAGE 2 RUN TIME: 0935 Specimen Inquiry RUN USER: INTERFACE SPEC #: [id number] PATIENT: AMANDA LEES #[id number] (Continued)--------- --- GROSS DESCRIPTION (Continued) lumen is pinpoint. Ink code: Black - second segment. Sections to include the entire fimbriae of each segment are submitted: A1, first segment; A2, second segment. SHANNEN//pardeep Signed SIGNATURE ON FILE Cayden Avilez MD 04/26/20 0935 END OF REPORT URINALYSIS [id number] 07:10:00 Test Item Value Reference Range Interpretation [...] comments: PRE OP FOR SURGERYNovel Coronavirus 2019 [id number] 07:26:00 Test Item Value Reference Range Interpretation Comments Novel Coronavirus 2019 Inhouse (test Negative Negative code = COVNONPUI) Testing Criteria Pre-Procedure ScreeningCounts Include [facility] 2019 [id number] 07:25:00 Test Item Value Reference Range Interpretation Comments Novel Coronavirus 2019 Inhouse (test Negative Negative code = COVNONPUI) Testing Criteria Pre-Procedure ScreeningHCG SERUM [id number] 13:16:00 Test Item Value Reference Range Interpretation Comments HCG SERUM QUAL (test code = HCGQL) NEG SCREEN NEG CBC W/O [id number] 13:02:00 Test Item Value Reference Range Interpretation [...] 6.8-11.2 H MPV) - US PREG UT [id number] 20:04:00 Patient Name: AMANDA FRENCH Unit No: [id number] EXAMS: CPT CODE: [id number] US PREG UT TRANSVAGINAL 19557 Examination: Ultrasound transvaginal Location code: H60 Comparison: None Discussion: Clinical history is remarkable for pelvic pain. Uterus measures 8.1 x 6.4 x 7.6 cm. An intrauterine gestation is identified. [place]-rump length measures 3.41 cm which corresponds to gestational age of10 weeks and 2 days. heart rate is identified at 142 bpm. Right ovary measures 3.9 x 1.9 x 2.8cm and left ovary measures 1.7 x 2.3 x 1.9 cm. Both ovaries are normal in echotexture. Duplex evaluation reveals normal flow in both ovaries. A corpus luteum cyst is identified in the right measuring 2cm. Impression: 1. Single intrauterine gestation with a gestational age of 10 weeks and 2 days. Please see above. at 2003 Reported and signed by: Tito Asencio MD CC: Milly RODRÍGUEZ Technologist: Leta Esquivel RDMS Trnscrbd D/ (2003) [email or web address] Probe: [id number] Orig Print D/T: S: 01/21/2020 (2006) Probe: GUERLINE Soriano NAME: AMANDA FRENCH [address] [place] [address] PHYS: Milly [place], [place] [address] : 1985 AGE: 34 SEX: F LOC: BDAYNA PHONE #: [phone] EXAM DATE: 01/21/2020 STATUS: REG ER FAX #: [phone] RAD NO: Page 1 Signed ReportBASIC METABOLIC [id number] 19:09:00 Test Item Value Reference Range Interpretation [...] 1 NORMAL code = LIPINDEX) Index/DL HCG [id number] 19:09:00 Test Item Value Reference Range Interpretation Comments HCG SERUM (test 94898 mi-IU/ML 0-3 H HCG RANGE S DURING code = HCG) NORMAL PREGNANC YPOST LMP 3-4 WEEKS 9 - 130 MIU/ML4-5 WEEKS 75 - 2,600 MIU/ML5-6 WEEKS 850 - 20,800 NM U/ML6-7 WEEKS 4,000 - 1 00,200 MIU/ML7-12 WEEK S 11,500 - 289,000 MIU/M L12-16 WEEKS 18,300 - 137,000 MIU/ML16-29 WEE KS 1,400 - 53,000 MIU/ML 29-41 WEEKS 940 - 60,000 MIU/ML BASIC METABOLIC [id number] 18:52:00 Test Item Value Reference Range Interpretation [...] 1 NORMAL code = LIPINDEX) Index/DL HCG [id number] 18:52:00 Test Item Value Reference Range Interpretation Comments HCG SERUM (test code = HCG) mi-IU/ML 0-3 URINALYSIS [id number] 18:49:00 Test Item Value Reference Range Interpretation [...] >0 /HPF NONE-SQepi code = SQU) URINALYSIS [id number] 18:48:00 Test Item Value Reference Range Interpretation [...] code = RBCU) #RBC/HPF 0-3 CBC W/O [id number] 18:35:00 Test Item Value Reference Range Interpretation [...] 11.6 fL 6.8-11.2 H MPV) HCG SERUM [id number] 02:56:00 Test Item Value Reference Range Interpretation Comments HCG SERUM QUAL (test code = HCGQL) NEG SCREEN NEG COMPREHENSIVE METABOLIC [id number] 02:14:00 Test Item Value Reference Range Interpretation [...] 1 NORMAL code = LIPINDEX) MG Index/DL [id number] 02:14:00 Test Item Value Reference Range Interpretation Comments ALCOHOL (test code = < 3 MG/DL 0-10 N MEDICAL ALCOHOL ALC) RESULTS. SITE W PREPPED WITH BE TADINE. <10 MG/DL ARE CONSIDERED NEGA TIVE. >400 MG/DL MAY BE FATAL.RESULTS F OR MEDICAL USE ONL Y. NOT TO BE USED FOR FORENSIC PURPOSES. COMPREHENSIVE METABOLIC [id number] 02:13:00 Test Item Value Reference Range Interpretation [...] 1 NORMAL code = LIPINDEX) MG Index/DL [id number] 02:13:00 Test Item Value Reference Range Interpretation Comments ALCOHOL (test code = < 3 MG/DL 0-10 N MEDICAL ALCOHOL ALC) RESULTS. SITE W PREPPED WITH BE TADINE. <10 MG/DL ARE CONSIDERED NEGA TIVE. >400 MG/DL MAY BE FATAL.RESULTS F OR MEDICAL USE ONL Y. NOT TO BE USED FOR FORENSIC PURPOSES. CBC W/AUTO [id number] 01:48:00 Test Item Value Reference Range Interpretation [...]
[2022-11-04] MEDS ORDERED: KETOROLAC 30 MG/ML INJ ONE (16:59)
[2022-11-04] MEDS ORDERED: LORazepam 2 MG/ML VIAL ONE ×2 (16:59→23:35)
[2022-11-04 17:04] LABS: Absolute Lymphocytes (CBC) 1.4 K/uL (0.7-4.9); Hematocrit 43.7 % (36.0-45.0); Lymphocytes % 24.4 % (15.3-44.8); MPV 10.5 fL (7.6-11.3); RBC Red Blood Cell Count 4.85 M/uL (3.86-4.86)
--- NOTE | 2022-11-04 17:14 | RAD REPORT ---
EXAM DESCRIPTION: RAD - Chest Single View - 11/04/2022 5:08 pm CLINICAL HISTORY: CHEST PAIN Chest pain. COMPARISON: No comparisons FINDINGS: Portable technique limits examination quality. The lungs are grossly clear. The heart is normal in size. No displaced fractures. IMPRESSION: No acute intrathoracic process suspected.
[2022-11-04 17:21] LABS: Protime INR 1.05
[2022-11-04 17:32] LABS: ALT/SGPT 21 U/L (13-56); AST/SGOT 8 U/L (15-37); Albumin 3.8 g/dL (3.4-5.0); BUN Blood Urea Nitrogen 13 mg/dL (7-18); Bicarbonate 27 mmol/L (21-32); Glomerular Filtration Rate 67 ml/min (=/>90); Glucose Level 92 mg/dL (74-106); Potassium 4.3 mmol/L (3.5-5.1); Sodium Level 134 mmol/L (136-145)
[2022-11-04 17:38] LABS: Alkaline Phosphatase 52 U/L (45-117); Bilirubin Total 0.5 mg/dL (0.2-1.0)
[2022-11-04 17:39] LABS: Bilirubin Direct < 0.1 mg/dL (0-0.2); Troponin High Sensitivity < 3.0 pg/mL (<58.9)
[2022-11-04 20:10] LABS: Urine Specific Gravity/Preg >1.030 (1.005-1.030)
[2022-11-04 20:17] LABS: Barbiturates NEGATIVE (NEGATIVE); Benzodiazepines POSITIVE (NEGATIVE); Cocaine NEGATIVE (NEGATIVE); METHAMPHETAM NEGATIVE (NEGATIVE); Methadone NEGATIVE (NEGATIVE); Opiates NEGATIVE (NEGATIVE); Phencyclidine NEGATIVE (NEGATIVE); THC Cannibis NEGATIVE (NEGATIVE)
--- NOTE | 2022-11-04 23:02 | EDPHYS ---
Physician Documentation [facility] Name: Amanda Lees Age: 37 yrs Sex: Female : 1985 Arrival Date: 11/04/2022 Time: 16:25 Bed 13 Private MD: ED Physician Matt Kearney HPI: 11/04 16:40 This 37 yrs old Female presents to ER via Ambulatory with complaints of Chest Pain, Arm cp Pain. 16:40 The patient or guardian reports chest pain that is located primarily in the anterior cp chest wall, left. 16:40 The pain radiates to the left arm. Associated signs and symptoms: Pertinent negatives: cp abdominal pain, cough, diaphoresis, lower extremity pain, lower extremity swelling, palpitations, shortness of breath, syncope, vomiting. The chest pain is described as constant. 19:00 Discussed results of labs, EKG and chest xray that were negative for cardiac cause of cp pain, Patient reports that she has had frequent thoughts of suicide lately and worsening of depression. Patient denies plan at this time. 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 - Social history:: Smoking status: Patient denies any tobacco usage or history of. ROS: 16:45 Constitutional: Negative for body aches, chills, fever, poor PO intake. cp 16:45 Eyes: Negative for injury, pain, redness, and discharge. cp 16:45 Cardiovascular: Positive for chest pain. 16:45 Respiratory: Negative for cough, shortness of breath, wheezing. cp 16:45 ENT: Negative for drainage from ear(s), ear pain, sore throat, difficulty swallowing, cp difficulty handling secretions. 16:45 Abdomen/GI: Negative for abdominal pain, vomiting, diarrhea, constipation. 16:45 : Negative for urinary symptoms. 16:45 Neuro: Negative for altered mental status, dizziness, headache, weakness. Exam: 16:46 ECG was reviewed by the Attending Physician. cp 16:50 Constitutional: The patient appears in no acute distress, alert, awake, cp non-diaphoretic, non-toxic, well developed, well nourished, anxious, tearful 16:50 Head/Face: Normocephalic, atraumatic. cp 16:50 Eyes: Periorbital structures: appear normal, Conjunctiva: normal, no exudate, no cp injection, Sclera: no appreciated abnormality, Lids and lashes: appear normal, bilaterally. 16:50 ENT: External ear(s): are unremarkable, Nose: is normal, Mouth: Lips: moist, Oral cp mucosa: pink and intact, moist, Posterior pharynx: Airway: no evidence of obstruction, patent. 16:50 Neck: ROM/movement: is normal, is supple, without pain, no range of motions limitations. 16:50 Chest/axilla: Inspection: normal. 16:50 Cardiovascular: Rate: normal, Rhythm: regular, Pulses: Pulses are 2+ in right radial artery and left radial artery. Edema: is not appreciated, JVD: is not appreciated. 16:50 Respiratory: the patient does not display signs of respiratory distress, Respirations: normal, no use of accessory muscles, no retractions, labored breathing, is not present, Breath sounds: are clear throughout, no decreased breath sounds, no stridor, no wheezing. 16:50 Abdomen/GI: Exam negative for discomfort, distension, guarding, Inspection: abdomen appears normal. 16:50 Back: pain, is absent, ROM is normal. 16:50 Neuro: Orientation: to person, place \T\ time. Mentation: is normal, Motor: moves all fours, strength is normal, Sensation: is normal. 11/05 00:30 ECG was reviewed by the Attending Physician. cp Vital Signs: 11/04 16:31 Pulse 90; Resp 16; Temp 98.6; Pulse Ox 100% ; Weight 68.04 kg; Height 5 ft. 1 in. jh5 (154.94 cm); Pain 8/10; 17:14 BP 133 / 86; Pulse 80; Resp 16; ll1 18:00 BP 110 / 70; Pulse 70; Resp 16; Pulse Ox 99% ; ll1 19:17 BP 128 / 82; Pulse 75; Resp 18; Temp 98; Pulse Ox 97% ; Pain 8/10; pf1 21:00 BP 115 / 68; Pulse 72; Resp 16; Temp 98.1; Pulse Ox 98% ; Pain 5/10; pf1 23:50 BP 96 / 52; Pulse 63; Resp 18; Temp 98.7; Pulse Ox 96% ; Pain 5/10; pf1 11/05 03:00 BP 101 / 52; Pulse 65; Resp 16; Temp 97.6; Pulse Ox 95% on R/A; Pain 0/10; pf1 05:55 BP 98 / 67; Pulse 62; Resp 18; Temp 97.8; Pulse Ox 100% ; Pain 0/10; pf1 11/04 16:31 Body Mass Index 28.34 (68.04 kg, 154.94 cm) jh5 Jefferson Coma Score: 07:50 Eye Response: spontaneous(4). Verbal Response: oriented(5). Motor Response: obeys scott commands(6). Total: 15. MDM: 11/04 16:39 Patient medically screened. cp 17:00 Differential diagnosis: abnormal EKG, acute myocardial infarction, acute pericarditis, cp anxiety, pulmonary embolus. 23:05 Data reviewed: vital signs, nurses notes, lab test result(s), EKG, radiologic studies, cp plain films. 11/05 07:50 HEART Score: History: Slightly Suspicious (0), ECG: Normal (0), Age: < or = 45 years scott (0), Risk Factors: No Risk Factors Known (0), Troponin: < or = 1 x Normal Limit (0), Total Score = 0. The patient's deep vein thrombosis risk score was calculated as follows: Total Score: 0. This patient was found to be at low risk for a deep vein thrombosis by using the Well's assessment criteria. The patient's pulmonary embolism risk score was calculated as follows: Total Score: 3-6 points. This patient was found to be at moderate risk for a pulmonary embolism by using the Well's assessment criteria. KARYN Risk Score: TOTAL SCORE = 0. Data interpreted: monitor tech: not applicable for this patient encounter. rate is 62 beats/min, rhythm is regular, Pulse oximetry: on room air is 100 %. Test interpretation: by ED physician or midlevel provider: ECG, plain radiologic studies. Counseling: I had a detailed discussion with the patient and/or guardian regarding: the historical points, exam findings, and any diagnostic results supporting the discharge/admit diagnosis, lab results, radiology results, the need for outpatient follow up, for definitive care, a credit card interviewer, a psychiatrist. 07:52 ED course: pt not suicidal , want meds for anxiety. scott 11/04 16:38 Order name: Basic Metabolic Panel; Complete Time: 18:32 cp 12/13 18:33 Interpretation: Normal except: NA 134; CRE 1.08; GFR 67. cp / 16:38 Order name: CBC with Diff; Complete Time: 18:32 cp 12/13 16:38 Order name: D-Dimer; Complete Time: 18:32 cp 12/13 16:38 Order name: LFT's; Complete Time: 18:32 cp 12/13 18:33 Interpretation: Normal except: AST 8; GLOB 4.2; A/G 0.9. cp 12/13 16:38 Order name: Magnesium; Complete Time: 18:32 cp 12/13 16:38 Order name: PT-INR; Complete Time: 18:32 cp 12/13 16:38 Order name: Troponin HS; Complete Time: 18:32 cp 12/13 16:38 Order name: UDS; Complete Time: 20:21 cp 12/13 18:57 Order name: Acetaminophen; Complete Time: 23:00 cp 12/13 18:57 Order name: ETOH Level; Complete Time: 23:00 cp 12/13 18:57 Order name: Ptt, Activated; Complete Time: 20:21 cp 12/13 18:57 Order name: Salicylate; Complete Time: 23:00 cp 12/13 19:50 Order name: Urine --Ancillary (enter results); Complete Time: 20:21 ds4 11/04 23:01 Order name: Troponin High Sensitivity; Complete Time: 01:31 cp 14 01:31 Interpretation: Troponin HS 3.7; Reviewed. cp 11/04 16:38 Order name: XRAY Chest (1 view); Complete Time: 18:32 cp 12/13 16:38 Order name: EKG; Complete Time: 16:39 cp 12/13 16:38 Order name: Cardiac monitoring; Complete Time: 16:54 cp 12/13 16:38 Order name: EKG - Nurse/Tech; Complete Time: 16:43 cp 12/13 16:38 Order name: IV Saline Lock; Complete Time: 16:54 cp 12/13 16:38 Order name: Labs collected and sent; Complete Time: 16:54 cp 12/13 16:38 Order name: O2 Per Protocol; Complete Time: 16:53 cp 11/05 07:10 Order name: Diet Finger Food; Complete Time: 07:10 bd 11/05 10:26 Order name: EKG Electrocardiogram EDMS 11/04 16:38 Order name: O2 Sat Monitoring; Complete Time: 16:53 cp 11/04 16:38 Order name: Urine Dipstick-Ancillary (obtain specimen); Complete Time: 19:49 cp 11/04 16:38 Order name: Urine Test (obtain specimen); Complete Time: 19:49 cp 11/04 18:57 Order name: Suicide Screening (Pitcher); Complete Time: 23:57 cp 11/04 23:01 Order name: EKG - Nurse/Tech; Complete Time: 00:51 cp EC/13 16:46 Rate is 93 beats/min. Rhythm is regular. [place] interval is normal. QRS interval is normal. cp QT interval is normal. T waves are Inverted in lead aVR. Interpreted by me. Reviewed by me. 11/05 00:30 Rate is 67 beats/min. Rhythm is regular. [place] interval is normal. QRS interval is normal. cp QT interval is normal. T waves are Inverted in lead aVR. Interpreted by me. Reviewed by me. Administered Medications: 11/04 17:00 Drug: Ketorolac 15 mg {Note: pain 8/10, RASS 0.} Route: IVP; Site: right antecubital; ll1 17:55 Follow up: Response: No adverse reaction ll1 17:05 Drug: Ativan (LORazepam) 0.5 mg Route: IVP; Site: right antecubital; ll1 17:55 Follow up: Response: No adverse reaction; Anxiety unchanged; RASS: Alert and Calm (0) ll1 17:55 Drug: Ativan (LORazepam) 0.5 mg Route: IVP; Site: right antecubital; ll1 19:06 Follow up: Response: No adverse reaction [facility] 11/05 00:40 Drug: Ativan (LORazepam) 1 mg Route: IM; Site: right deltoid; pf1 01:17 Follow up: Response: No adverse reaction; Anxiety unchanged pf1 01:40 Follow up: Response: No adverse reaction; Anxiety unchanged pf1 00:51 Not Given (Patient Refused): HALdol (as decanoate) 10 mg IM once pf1 03:15 Drug: HALdol (as decanoate) 10 mg Route: IM; Site: right gluteus; pf1 04:15 Follow up: Response: No adverse reaction; Anxiety decreased pf1 07:54 Drug: KLONopin (clonazePAM) 1 mg Route: PO; ap3 11:36 Follow up: Response: No adverse reaction ap3 Disposition: 11/04 18:47 Co-signature as Attending Physician, Jw Frank DO I was immediately available onsite ms3 in the emergency department for consultation in the care of the patient. Disposition Summary: 11/05/22 07:49 Discharge Ordered Location: Home scott Problem: new(11/05/22 07:49) scott Symptoms: have improved(11/05/22 07:49) scott Condition: Stable(11/05/22 07:49) scott Diagnosis - Adjustment disorder with depressed mood scott - Suicidal ideations(11/05/22 07:49) scott - Other reactions to severe stress - depression scott Followup: scott - With: Private Physician - When: 2 - 3 days - Reason: Recheck today's complaints, Continuance of care, Re-evaluation by your physician Followup: scott - With: Eyal York MD - When: 2 - 3 days - Reason: Recheck today's complaints, Re-evaluation by your physician Discharge Instructions: - Discharge Summary Sheet scott - Adjustment Disorder, Adult scott - Suicidal Feelings: How to Help Yourself scott - Helping Someone Who is Suicidal scott - Stress, Adult scott - Managing Anxiety, Adult scott Forms: - Medication Reconciliation Form scott - Thank You Letter scott - Antibiotic Education scott - Prescription Opioid Use scott - Work release form ap3 Prescriptions: - Klonopin 1 mg Oral Tablet - take 1 tablet by ORAL route every 12 hours As needed; 20 tablet; Refills: 0, scott Product Selection Permitted Signatures: Dispatcher [employer] EDMatt Solis MD MD cha Page, Corey, PA PA cp Prokisch, Amanda RN RN ap3 Aristides Hernadez RN RN ll1 Jw Frank DO DO ms3 Daniac Griffiths RN RN jh5 Stephanie parisi RN RN pf1 Corrections: (The following items were deleted from the chart) 11/05 07:46 11/04 23:02 Doctor cp [facility] 11/05 07:46 11/04 23:02 Psych Facility cp [facility] 11/05 07:46 11/04 23:02 Higher level of care cp [facility] 11/05 07:46 11/04 23:02 Stable cp [facility] 11/05 07:46 11/04 23:02 new cp [facility] 11/05 07:46 11/04 23:02 are unchanged cp [facility] 11/05 07:46 11/04 23:02 Suicidal ideations cp [facility]
--- NOTE | 2022-11-04 23:02 | ER ---
Nurse's Notes [facility] Name: Amanda Lees Age: 37 yrs Sex: Female : 1985 Arrival Date: 11/04/2022 Time: 16:25 Bed 13 Private MD: Diagnosis: Adjustment disorder with depressed mood;Suicidal ideations;Other reactions to severe stress-depression Presentation: 11/04 16:31 Chief complaint: Patient states: i woke up at 2 and about 215 my crying spell started jh5 and ever since i cant get my chest to stop hurting; i was advised to come to the nearest ER. Coronavirus screen: Vaccine status: Patient reports receiving the 2nd dose of the covid vaccine. Client denies travel out of the [place] in the last 14 days. Ebola Screen: Patient negative for fever greater than or equal to 101.5 degrees Fahrenheit, and additional compatible Ebola Virus Disease symptoms Patient denies exposure to infectious person. Patient denies travel to an Ebola-affected area in the 21 days before illness onset. Initial Sepsis Screen: Does the patient meet any 2 criteria? No. Patient's initial sepsis screen is negative. Does the patient have a suspected source of infection? No. Patient's initial sepsis screen is negative. Risk Assessment: Do you want to hurt yourself or someone else? Patient reports no desire to harm self or others. 16:31 Method Of Arrival: Ambulatory [facility] 16:31 Acuity: VIVEK 3 jh5 18:22 Onset of symptoms was November 04, 2022. [facility] Triage Assessment: 16:34 General: Appears uncomfortable, slender, well groomed, well developed, Behavior is 5 calm, cooperative, appropriate for age. Pain: Complains of pain in chest and left arm. Cardiovascular: Chest pain. 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 - Social history:: Smoking status: Patient denies any tobacco usage or history of. Screenin:14 Abuse screen: Denies threats or abuse. Nutritional screening: No deficits noted. ll1 Tuberculosis screening: No symptoms or risk factors identified. Fall Risk IV access (20 points). Total Dhillon Fall Scale indicates No Risk (0-24 pts). 18:21 [facility] ED Fall Risk Assessment (Adult) Score/Fall Risk Level 0 - 2 = Low Risk. Humpty ll1 Dumpty Scale Fall Assessment Tool (age< 18yrs) Age 13 years and above (1 pt) Gender Female (1 pt) Diagnosis Psych/ behavioral disorders ( 2 pts) Medication Usage Other medications/ None (1 pt) Fall Risk Score/ Level Low Fall Risk: </= 11 points Oriented to surroundings, Maintained a safe environment: Age specific bed with railing, Bed in low position\\T\\ wheels locked, Assess need for siderail use, Locks on, Rm \\T\\ paths clutter \\T\\ obstacle free, Proper lighting, Call light, personal item w/in reach, Alarms as needed. Assessment: 17:15 Reassessment: No changes from previously documented assessment. Patient and/or family ll1 updated on plan of care and expected duration. Pain level reassessed. Patient is alert, oriented x 3, equal unlabored respirations, skin warm/dry/pink. 18:00 Reassessment: No changes from previously documented assessment. Patient and/or family ll1 updated on plan of care and expected duration. Pain level reassessed. Patient is alert, oriented x 3, equal unlabored respirations, skin warm/dry/pink. 18:45 Reassessment: No changes from previously documented assessment. Patient and/or family ll1 updated on plan of care and expected duration. Pain level reassessed. Patient states symptoms have not improved. 19:00 General: Appears distressed, well groomed, well developed, Behavior is cooperative, pf1 appropriate for age, anxious. 19:00 Pain: Complains of pain in chest Pain currently is 8 out of 10 on a pain scale. Pain pf1 began today. 19:00 Neuro: No deficits noted. Level of Consciousness is awake, alert, obeys commands, pf1 Oriented to person, place, time, situation. Cardiovascular: Chest pain with anxiety. Respiratory: No deficits noted. Breath sounds are clear bilaterally. GI: No deficits noted. No signs and/or symptoms were reported involving the gastrointestinal system. : No deficits noted. No signs and/or symptoms were reported regarding the genitourinary system. 20:00 Reassessment: Patient appears in no apparent distress at this time. Patient and/or pf1 family updated on plan of care and expected duration. Pain level reassessed. Patient is alert, oriented x 3, equal unlabored respirations, skin warm/dry/pink. 20:00 Pain: Complains of pain in chest Pain currently is 5 out of 10 on a pain scale. pf1 21:00 Reassessment: Patient appears in no apparent distress at this time. Patient and/or pf1 family updated on plan of care and expected duration. Pain level reassessed. Patient is alert, oriented x 3, equal unlabored respirations, skin warm/dry/pink. Patient denies pain at this time. 22:00 Reassessment: Patient appears in no apparent distress at this time. No changes from pf1 previously documented assessment. Patient and/or family updated on plan of care and expected duration. Pain level reassessed. 23:00 Reassessment: Patient appears in no apparent distress at this time. No changes from pf1 previously documented assessment. Patient and/or family updated on plan of care and expected duration. Pain level reassessed. Patient is alert, oriented x 3, equal unlabored respirations, skin warm/dry/pink. 11/05 00:00 Reassessment: Patient appears in no apparent distress at this time. No changes from pf1 previously documented assessment. Patient and/or family updated on plan of care and expected duration. Pain level reassessed. 01:00 Reassessment: Patient appears in no apparent distress at this time. No changes from pf1 previously documented assessment. Patient sleeping at this time.. 02:00 Reassessment: Patient appears in no apparent distress at this time. No changes from pf1 previously documented assessment. Patient and/or family updated on plan of care and expected duration. Pain level reassessed. 03:00 Reassessment: Patient appears in no apparent distress at this time. No changes from pf1 previously documented assessment. 04:00 Reassessment: Patient appears in no apparent distress at this time. No changes from pf1 previously documented assessment. 05:00 Reassessment: Patient appears in no apparent distress at this time. No changes from pf1 previously documented assessment. 06:00 Reassessment: Patient appears in no apparent distress at this time. No changes from pf1 previously documented assessment. Patient and/or family updated on plan of care and expected duration. Pain level reassessed. 07:54 Reassessment: Patient and/or family updated on plan of care and expected duration. Pain ap3 level reassessed. Patient is alert, oriented x 3, equal unlabored respirations, skin warm/dry/pink. patient awake, alert and denies any suicide thoughts or feelings at this time. Pain: Denies pain. Cardiovascular: Patient's skin is warm and dry. Respiratory: Airway is patent Respiratory effort is even, unlabored, Respiratory pattern is regular, symmetrical. 07:55 Pain: no pain at this time. ap3 09:38 Reassessment: nurse went into patients room to discharge patient. nurse asked if ap3 patient felt safe to be discharged home, and patient states "I don't know, I just woke up." Patient updated charge nurse. General:. 10:30 Reassessment: Woke patient up who states she did not realize she was being discharged ss at this time, is now eating breakfast provided. Pt states she will call for a ride to go home. 10:51 Reassessment: Pt states that she is unable to find a ride at this time, and has made ss many phone calls and expects that somebody will call her back soon. 11:43 Reassessment: security brought patients belongings back to patient so she could get ap3 dressed. Psych: 11/04 19:00 [place] Suicide Severity Screening: "In the past month, have you actually had any pf1 thoughts of killing yourself?" Patient responds "yes." Based off the client's response additional [place] suicide severity screening questions to be further documented on paper forms. 19:00 Subjective: Patient's mood is irritable, Having thoughts of suicide. Plan for suicide pf1 is Patient stated the suicidal plan was to get a gun from her friend and shoot herself. Patient stated she is sad and alone around the holiday's and does not have custody of her children. Objective: Patient is cooperative, irritable, Patient stated has anxiety and was having an anxiety attack today with chest pain. Speech is normal, Affect is appropriate. Interventions: Removed personal items and placed in bag. Patient placed in hospital gown. Searched person for dangerous items. Urine collected and sent for urine drug test. Belonging list filled out. Safety Checks: Personal items have been removed. Door is open. No visitors are present at this time. unknown. Commitment: Patient will be a voluntary commitment. 11/05 07:55 [place] Suicide Severity Screening: In the past month, have you wished you were ap3 or wished you could go to sleep and not wake up? Patient responds "yes." but not at this time. 09:25 [place] Suicide Severity Screening: "In your lifetime, have you ever done anything, ap3 started to do anything, or prepared to do anything to end your life?" Patient responds "yes." but denies at this time. Vital Signs: 11/04 16:31 Pulse 90; Resp 16; Temp 98.6; Pulse Ox 100% ; Weight 68.04 kg; Height 5 ft. 1 in. jh5 (154.94 cm); Pain 8/10; 17:14 BP 133 / 86; Pulse 80; Resp 16; ll1 18:00 BP 110 / 70; Pulse 70; Resp 16; Pulse Ox 99% ; ll1 19:17 BP 128 / 82; Pulse 75; Resp 18; Temp 98; Pulse Ox 97% ; Pain 8/10; pf1 21:00 BP 115 / 68; Pulse 72; Resp 16; Temp 98.1; Pulse Ox 98% ; Pain 5/10; pf1 23:50 BP 96 / 52; Pulse 63; Resp 18; Temp 98.7; Pulse Ox 96% ; Pain 5/10; pf1 11/05 03:00 BP 101 / 52; Pulse 65; Resp 16; Temp 97.6; Pulse Ox 95% on R/A; Pain 0/10; pf1 05:55 BP 98 / 67; Pulse 62; Resp 18; Temp 97.8; Pulse Ox 100% ; Pain 0/10; pf1 11/04 16:31 Body Mass Index 28.34 (68.04 kg, 154.94 cm) 5 Nini Coma Score: 07:50 Eye Response: spontaneous(4). Verbal Response: oriented(5). Motor Response: obeys scott commands(6). Total: 15. ED Course: 11/04 16:25 Patient arrived in ED. am2 16:33 Matt Cardona PA is PHCP. cp 16:33 Jw Frank DO is Attending Physician. cp 16:34 Triage completed. 5 16:34 Arm band placed on left wrist. 5 16:45 Satya, Lynsay, RN is Primary Nurse. ll1 16:50 Inserted saline lock: 22 gauge in right antecubital area, using aseptic technique. ll1 Blood collected. Patient maintains SpO2 saturation greater than 95% on room air. 17:10 XRAY Chest (1 view) In Process Unspecified. EDMS 17:14 Patient has correct armband on for positive identification. Bed in low position. Call ll1 light in reach. Client placed on continuous cardiac and pulse oximetry monitoring. NIBP monitoring applied. pvc monitor on. 18:21 No provider procedures requiring assistance completed. ll1 19:00 Safety Checks: Personal items have been removed. The door is open or patient has been pf1 placed in a hallway bed/chair. There are no family/friend visitors at this time Sitter present at this time. 19:00 Patient has correct armband on for positive identification. Sitter at for SI pf1 precautions. 19:00 Patient is placed in psych hold. pf1 11/05 07:13 Attending Physician role handed off by Jw Frank DO scott 07:13 Matt Kearney MD is Attending Physician. scott 07:46 Eyal York MD is Referral Physician. scott 08:33 pt denied at [facility] due to no beds at this time. bd 08:36 Primary Nurse role handed off by Aristides Hernadez RN bd 11:37 IV discontinued, intact, bleeding controlled, No redness/swelling at site. Pressure ap3 dressing applied. Administered Medications: 11/04 17:00 Drug: Ketorolac 15 mg {Note: pain 8/10, RASS 0.} Route: IVP; Site: right antecubital; ll1 17:55 Follow up: Response: No adverse reaction ll1 17:05 Drug: Ativan (LORazepam) 0.5 mg Route: IVP; Site: right antecubital; ll1 17:55 Follow up: Response: No adverse reaction; Anxiety unchanged; RASS: Alert and Calm (0) ll1 17:55 Drug: Ativan (LORazepam) 0.5 mg Route: IVP; Site: right antecubital; ll1 19:06 Follow up: Response: No adverse reaction [facility] 11/05 00:40 Drug: Ativan (LORazepam) 1 mg Route: IM; Site: right deltoid; pf1 01:17 Follow up: Response: No adverse reaction; Anxiety unchanged pf1 01:40 Follow up: Response: No adverse reaction; Anxiety unchanged pf1 00:51 Not Given (Patient Refused): HALdol (as decanoate) 10 mg IM once pf1 03:15 Drug: HALdol (as decanoate) 10 mg Route: IM; Site: right gluteus; pf1 04:15 Follow up: Response: No adverse reaction; Anxiety decreased pf1 07:54 Drug: KLONopin (clonazePAM) 1 mg Route: PO; ap3 11:36 Follow up: Response: No adverse reaction ap3 Medication: 11/04 17:15 VIS not applicable for this client. ll1 Outcome: 23:02 ER care complete, transfer ordered by . cp 11/05 07:49 Discharge ordered by . scott 11:37 Discharged to home ambulatory. ap3 11:37 Condition: good 11:37 Discharge instructions given to patient, Instructed on discharge instructions, follow up and referral plans. medication usage, Demonstrated understanding of instructions, follow-up care, medications, Prescriptions given X 1. 11:48 Patient left the ED. ap3 Signatures: Dispatcher [employer] EDMS Lyric Chahal Corey, MD MD cha Smirch, Shelby RN RN ss Matt Cardona PA PA Afua Beasley Amanda RN RN ap3 Aristides Hernadez RN RN ll1 Danica Griffiths RN RN jh5 Stephanie parisi RN RN pf1 Corrections: (The following items were deleted from the chart) 02:11 11/04 19:00 Pain: Complains of pain in chest pf1 pf1 11/05 06:01 05:59 Reassessment: Patient appears in no apparent distress at this time. pf1 pf1
[2022-11-04] MEDS ORDERED: HALOPERIDOL LACT 5 MG/ML INJ ONE (23:36)
[2022-11-05] MEDS ORDERED: HALOPERIDOL LACT 5 MG/ML INJ ONE (03:10)
[2022-11-05] MEDS ORDERED: clonazePAM 1 MG TAB ONE (07:52)
[2022-11-05 12:22] VITALS: BP 98/67; TEMP 97.8; O2SAT 100
--- NOTE | 2022-11-06 08:07 | EKG ---
Test Date: 2022-11-05 Test Time: 00:25:51 Learning Development Specialist: RV MEASUREMENT RESULTS: Intervals: Rate: 67 OK: 144 QRSD: 84 QT: 378 QTc: 399 Ethel: P: 54 OK: 144 QRS: 107 T: 33 INTERPRETIVE STATEMENTS: Normal sinus rhythm Rightward axis Borderline ECG Compared to ECG 11/04/2022 16:41:30 No significant changes Electronically Signed On 11-06-22 08:02:10 BEAN SORTER by Sourav Jaramillo
--- NOTE | 2022-11-06 08:08 | EKG ---
Test Date: 2022-11-04 Test Time: 16:41:30 Window Draper: MEASUREMENT RESULTS: Intervals: Rate: 93 MS: 132 QRSD: 84 QT: 332 QTc: 412 [place]: P: 46 MS: 132 QRS: 107 T: 6 INTERPRETIVE STATEMENTS: Normal sinus rhythm Rightward axis Borderline ECG Compared to ECG 10/21/2015 21:55:38 No significant changes Electronically Signed On 11-06-22 08:02:22 CHEMIST STEROIDS by Sourav Jaramillo
== END 2022-11-05 11:48 | disposition home or self-care (01) ==
LOC: ER 16:24
DX: F43.21 Adjustment disorder with depressed mood (principal); R45.851 Suicidal ideations; F43.89 Other reactions to severe stress
CPT/HCPCS: 93005 ×2; 85025; 80048; 36415; 80320; 83735; 80329 ×2; 81025; 85610; 85379; 80076; 85730; 84484 ×2; 80307; 71045; J1630 ×2

== ENCOUNTER 2023-07-02 13:44 | Emergency (ER) | payer OTHER ==
--- OUTSIDE RECORDS SUMMARY | 2023-07-02 13:51 | XMS REPORT | Continuity of Care Document ---
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 [facility] Body height 2022-01-24 16:28:00 154.9 cm [facility] Body weight 2022-01-24 16:28:00 72.576 [facility] BMI 2022-01-24 16:28:00 30.23 kg/m2 [facility] Oxygen saturation in 2022-01-24 16:28:00 97 /min [facility] Arterial blood by Pulse oximetry Procedures Procedure Date / Time Performing Clinician Source Performed ASSIGNMENT OF BENEFITS 2023-01-27 20:39:54 Doctor Unassigned, No [facility] POCT TEST 2022-12-11 19:57:00 Amanda Peter [facility] COMP. METABOLIC PANEL 2022-12-11 19:53:00 Amanda Peter [facility] ([id number] SALICYLATE 2022-12-11 19:53:00 Amanda Peter [facility] ETHANOL 2022-12-11 19:53:00 Amanda Peter [facility] CBC WITH DIFF 2022-12-11 19:53:00 Amanda Peter [facility] URINALYSIS 2022-12-11 19:53:00 Amanda Peter [facility] URINE DRUG (IMMUNOASSAY) 2022-12-11 19:53:00 Amanda Peter [facility] SCREEN W/O REFLEX CT ABDOMEN PELVIS W 2022-10-05 02:01:00 Stephanie Franklin [facility] POCT TEST 2022-10-05 01:10:00 Stephanie Franklin [facility] URINALYSIS 2022-10-05 01:02:00 Stephanie Franklin [facility] COMP. METABOLIC PANEL 2022-10-05 00:43:00 Stephanie Franklin [facility] ([id number]) [facility] CBC WITH DIFF 2022-10-05 00:43:00 Stephanie Franklin [facility] CONSENT/REFUSAL FOR 2022-10-04 23:58:19 Doctor Unassigned, No [facility] Name [facility] CT ABDOMEN PELVIS W 2022-09-22 17:42:43 Pavel Shay [facility] CONTRAST [facility] POCT TEST 2022-09-22 16:46:00 Pavel Shay [facility] LIPASE 2022-09-22 16:39:00 Pavel Shay [facility] COMP. METABOLIC PANEL 2022-09-22 16:39:00 Pavel Shay [facility] ([id number]) [facility] CBC WITH DIFF 2022-09-22 16:39:00 Pavel Shay [facility] URINALYSIS 2022-09-22 16:39:00 Pavel Shay [facility] ADC OR CYNTHIA ONLY - 2022-09-22 16:39:00 Pavel Shay [facility] RPR [facility] HIV 1/2 AG-AB WITH 2022-09-22 16:39:00 Pavel Shay [facility] REFLEX [facility] CONSENT/REFUSAL FOR 2022-09-22 15:44:05 Doctor Unassigned, No Un [facility] DIAGNOSIS AND TREATMENT Name [facility] SARS-COV-2, FLU A/B, RSV 2021-12-25 10:54:00 Germaine Ornelas [facility] CORONAVIRUS, COVID-19, 2021-12-25 10:54:00 Germaine Ornelas [facility] LYNN CBC/DIFF 2021-12-24 14:13:00 Dagmar Segura [facility] BASIC METABOLIC PANEL 2021-12-24 14:13:00 Dagmar Segura [facility] URINE DRUG SCREEN 2021-12-24 14:13:00 Dagmar Segura [facility] HIV AG/AB COMBO 2021-12-24 14:13:00 Lola Seguraannetta Canales annetta DIAGNOSTIC/SYMPTOMATIC CBC 2021-12-24 14:13:00 Dos RiosEduardo saundersolga Canales annetta COVID-19 (MOLECULAR 2021-05-07 02:19:[address] [facility] TESTING [facility] NUCLEIC ACID AMPLIFICATION) CK-MB (WITHOUT INDEX) 2021-05-07 02:16:00 Erlin Walton [facility] POTASSIUM SERUM 2021-05-06 13:19:00 Cristóbal De León [place] o f [facility] HEPATIC FUNCTION PANEL 2021-05-06 06:03:00 Amanda [facility] ([id number]) (ALB,T.PRO,BILI [facility] T,BU/BC,ALT,AST,ALK PHOS) BASIC METABOLIC PANEL 2021-05-06 06:03:00 Amanda Peter [facility] (NA, K, CL, CO2, Medical Branch GLUCOSE, BUN, CREATININE, CA) HB ECG ROUTINE & RHYTHM 2021-05-06 04:46:27 Amanda Peter [facility] POCT TEST 2021-05-06 04:08:00 Amanda Peter [facility] SALICYLATE 2021-05-06 04:04:00 Amanda Peter [facility] ETHANOL 2021-05-06 04:04:00 Amanda Peter [facility] URINE DRUG (IMMUNOASSAY) 2021-05-06 04:04:00 Amanda Peter [facility] DRUG [facility] SCREEN CBC WITH DIFF 2021-05-06 04:04:00 Amanda Peter [facility] URINALYSIS 2021-05-06 04:04:00 Amanda Peter [facility] COVID-19 (ID NOW RAPID 2021-05-06 04:04:00 Amanda Peter [facility] TESTING) [facility] NOTICE OF PRIVACY 2021-05-06 02:44:14 Doctor Unassigned, No [facility] PRACTICES Name [facility] CONSENT/REFUSAL FOR 2021-05-06 02:43:53 Doctor Unassigned, No [facility] [place] [facility] Name [facility] Plan of Care Planned Activity Planned Date Details Comments Source Future Scheduled Test 2023-08-23 00:00:00 IMM Influenza [facility] Seasonal (>/= 19 yrs) [code = IMM Influenza Seasonal (>/= 19 yrs)] Future Scheduled Test 2022-08-23 00:00:00 IMM Influenza [facility] Seasonal (>/= 19 yrs) [code = IMM Influenza Seasonal (>/= 19 yrs)] Future Scheduled Test 2014 00:00:00 Screening for [facility] malignant neoplasm of cervix (procedure) [code = 254538797] Future Scheduled Test 2014 00:00:00 Screening for [facility] malignant neoplasm of cervix (procedure) [code = 061138077] Future Scheduled Test 2014 00:00:00 Screening for [facility] malignant neoplasm of cervix (procedure) [code = 523248332] Future Scheduled Test 2014 00:00:00 Screening for [facility] malignant neoplasm of cervix (procedure) [code = 470204297] Future Scheduled Test 1984 00:00:00 COVID-19 Vaccine (#1) [facility] [code = COVID-19 Vaccine (#1)] Future Scheduled Test 1984 00:00:00 COVID-19 Vaccine (#1) [facility] [code = COVID-19 Vaccine (#1)] Encounters Start End Encounter Admission Attending Care Care Encounter Source Date/Time Date/Time Type Type Clinicians Facility Department ID 2023-04-19 Outpatient [facility] [id number] [place] 10:45:04 [id number] [facility] 2022-11-07 Outpatient [facility] [id number] [place] 20:09:48 [facility] 2022-11-05 Outpatient [facility] [id number] [place] 00:58:27 [facility] 2022-03-24 Outpatient [facility] [id number] [place] 14:13:21 [facility] 2022-03-04 Outpatient [facility] [id number] [place] 13:49:44 [facility] 2022-02-14 Outpatient [facility] [id number] [place] 21:50:44 [id number] 2021-09-25 Outpatient [facility] [id number] [place] 09:53:09 [id number] [facility] 2021-09-23 Emergency [facility] [id number] Univers 00:54:38 ity [facility] 2021-06-15 Outpatient SLY [facility] [id number] [facility] 17:20:53 FRANCISCO 2020-09-08 Inpatient HCANW ADAN [id number] [facility] 22:22:00 36 [facility] are [facility] 2020-04-25 Inpatient RAMON Puente, [facility] DAYS [id number] [facility] 11:15:00 Zachariah 02 [facility] 2020-01-21 Inpatient [facility] ADAN [id number] [facility] 16:53:00 [id number] [facility] 2023-04-19 2023-04-19 Emergency E BRAIN, NW [facility] 7503 [facility] 09:48:00 12:51:00 JEZ 2023-01-27 2023-01-27 Ve Teacher Emily, Carlos Eduardo Lab Main [facility] 1.2.8 40.114 [id number] Univers 14:45:00 15:00:00 Visit Smita [place] [id number] ity [facility] 4.2.7.2.686 Texpooja s [facility] [id number] Ne dical [address] 2023-01-27 2023-01-27 [facility] [id number] Univers 14:45:00 14:45:00 SMITA coon [facility] 2023-01-27 2023-01-27 Orders Doctor SYDNIE [id number] Univers 00:00:00 00:00:00 Only Unassigned, RICHARD [id number] ity of [place] [facility] 4.2.7.2.686 [place] [id number] [address] 2022-12-11 2022-12-11 Emergency X ROME [facility] ERT [id number] Univers 13:29:00 20:07:00 AMANDA ityary [facility] 2022-12-11 2022-12-11 Emergency [facility] [id number] Univers 13:29:00 20:07:00 Amanda EUCEDA [id number] ity [facility] 4.2.7.2.686 [facility] [id number] [address] 2022-10-04 2022-10-04 Emergency X TARA [facility] ERT [id number] Univers 18:19:00 21:23:00 MARTHA ity [facility] 2022-10-04 2022-10-04 Emergency Stephanie Franklin [facility] 1.2.840 .114 [id number] Univers 18:19:00 21:23:00 Martha Pacheco [id number] ity [facility] 4.2.7.2.686 [facility] [id number] [address] 2022-09-22 2022-09-22 Emergency [facility] [id number] Univers 10:46:00 14:02:00 PAVEL coon [facility] 2022-09-22 2022-09-22 Emergency [facility] [id number] Univers 10:46:00 14:02:00 Pavel EUCEDA 350.1.13.10 i ty of [place] 4.2.7.2.686 [facility] [id number] [address] 2022-06-30 2022-06-30 Outpatient R AKINSIPE, [facility] [id number] Univers 09:15:00 09:15:00 DEBRA [id number] daryly o f [facility] 2022-06-30 2022-06-30 Outpatient R AKINSIPE, [facility] [id number] Univers 09:15:00 09:15:00 DEBRA britoy o f [facility] 2022-05-27 2022-05-27 Outpatient , [facility] [id number] [place] 00:00:00 00:00:00 [facility] 2022-04-24 2022-04-24 Outpatient EBENEZER [facility] [id number] [place] 00:00:00 00:00:00 Joshua MARTINEZ 2022-04-11 2022-04-11 Outpatient JAMILA, USMAN [facility] [id number] [place] 00:00:00 00:00:00 Health 2022-03-19 2022-03-19 Telemsrinath Porras, [facility] [id number] [place] 14:00:00 14:00:00 ne Herman [facility] 2022-03-07 2022-03-07 Outpatient EBENEZER [facility] [id number] [place] 00:00:00 00:00:00 Joshua MARTINEZ KATIE 2022-03-07 2022-03-07 Outpatient SALAMAT, [facility] [id number] [place] 00:00:00 00:00:00 BORA Health 2022-03-06 2022-03-06 Outpatient JAMILA, USMAN [facility] [id number] [place] 00:00:00 00:00:00 Health 2022-03-05 2022-03-05 Suellen Alvarado, [facility] [id number] 51 [place] 15:00:00 15:40:36 ne Corby Ramírez Joshuayissel 2022-03-05 2022-03-05 [facility] [id number] [place] 00:00:00 00:00:00 Only Corby Ramírez Healt h 2022-01-24 2022-01-24 Outpatient RACHEAL BLAKELY, [facility] [id number] [place] 15:25:58 23:59:00 [facility] 2021-12-24 2021-12-25 Emergency Matorin, [facility] [id number] [place] 14:17:00 19:55:00 Germaine A [facility] 2021-12-25 2021-12-25 Outpatient MEG, [facility] [id number] [place] 00:00:00 00:00:00 [facility] 2021-12-24 2021-12-24 Emergency 1 [facility] [id number] [place] 14:17:00 14:17:00 Health 2021-08-22 2021-08-25 Outpatient DELLA [facility] [id number] [place] 01:05:00 04:53:00 [facility] 2021-08-22 2021-08-22 [facility] [id number] [place] 01:05:00 01:05:00 [facility] 2021-08-22 2021-08-22 Emergency [facility] [id number] [place] 00:00:00 00:00:00 [facility] 2021-08-22 2021-08-22 Outpatient BLAYNE, [facility] [id number] [place] 00:00:00 00:00:00 [facility] 2021-08-21 2021-08-21 Outpatient SUMANFlora [facility] [id number] [place] 21:06:54 23:59:00 , JAYSON Forrester [facility] 2021-05-05 2021-05-07 Emergency [facility] 1.2.840.114 [id number] 22:52:00 18:16:00 Amanda Euceda 350.1.13.10 [place] 4.2.7.2.686 Burton [id number] [facility] 2021-05-05 2021-05-07 Emergency [facility] 1.2.840.114 [id number] [facility] 22:52:00 18:16:00 Amanda Euceda 350.1.13.10 ity [facility] 4.2.7.2.686 [facility] [id number] [address] 2020-04-25 2020-04-25 Out[facility] [id number] [facility] 05:31:00 05:31:00 Zachariah [id number] [facility] 2020-04-20 2020-04-20 Outpatient Kwame, [facility] OUTD [id number] [facility] 13:22:00 13:22:[address] [place] [address] 2020-04-20 2020-04-20 Outpatient Kw[facility] [id number] [facility] 13:22:00 13:22:[address] Results Test Description Test Time Test Comments Results Result Comments Source POCT TEST 2022-12-11 19:57:00 Test Item Value Reference Range Interpretation Comme nts POCT PREG (test code = 1605) negative On board controls acceptable with C Line (test code = 3574) yes POCT PREG LOT # (test code = 3575) [id number] POCT PREG TEST DATE (test code = 3576) 02/21/2024 Lab Interpretation (test code = 05380-1) [id number] 01:10:00 Test Item Value Reference Range Interpretation Comments On board controls acceptable with present C Line (test code = 3574) POCT PREG LOT # (test code = 3575) [id number] POCT PREG TEST DATE (test 2023-01-20 code = 3576) POCT PREG (test code = 1605) negative Lab Interpretation (test code = Normal 14711-5) [facility] WITH [id number] 01:09:20 Test Item Value Reference Range Interpretation Comments WBC (test code = See_Comment [Automated 8090-2) message] The sy stem which generated this result transmitted reference range : 4.30 - 11.10 10*3/?L. The reference range was not used to interpret this result as normal/abnormal . RBC (test code = See_Comment [Automated 299-8) message] The sy stem which generated this [...] (test code = 38.1 fL 39.0-49.9 L 46228-2) RDW-CV (test code = 12.0 % 12.0-15.5 788-0) PLT (test code = See_Comment [Automated 777-3) message] The sy stem which generated this result transmitted reference range : 166 - 358 10*3/ ?L. The reference r evelina was not used to interpret this result as normal/abnormal . MPV (test code = 11.8 fL 9.5-12.9 14738-7) NRBC/100 WBC (test See_Comment [Automat ed code = 0944213726) message] The system which generated this result transmitted reference range : 0.0 - 10.0 /100 WBCs. The refer ence range was not u sed to interpret th is result as normal/abnormal . NRBC x10^3 (test code See_Comment [Auto mated = 1584945014) message] The s ystem which generated this result transmitted reference range : 10*3/?L. The reference range was not used to interpret this result as normal/abnormal . GRAN MAT (NEUT) % 57.9 % (test code = 770-8) IMM GRAN % (test code 0.50 % = 8281546841) LYMPH % (test code = 31.5 % 736-9) MONO % (test code = 6.0 % 5905-5) EOS % (test code = 3.1 % 713-8) BASO % (test code = 1.0 % 706-2) GRAN MAT x10^3(ANC) 5.03 10*3/uL 1.88-7.09 (test code = 4565306803) IMM GRAN x10^3 (test 0.04 10*3/uL 0.00-0.06 code = 2060428929) LYMPH x10^3 (test code 2.74 10*3/uL 1.32-3.29 = 731-0) MONO x10^3 (test code 0.52 10*3/uL 0.33-0.92 = 742-7) EOS x10^3 (test code = 0.27 10*3/uL 0.03-0.39 711-2) BASO x10^3 (test code 0.09 10*3/uL 0.01-0.07 H = 704-7) Lab Interpretation Abnormal (test code = 68303-0) [facility] (28180[facility]2022-10-05 01:05:39 Test Item Value Reference Range Interpretation Comments NA (test code = 140 mmol/L 135-145 0424142609) K (test code = 4.5 mmol/L 3.5-5.0 2375875555) CL (test code = 103 mmol/L 98-108 4784421445) CO2 TOTAL (test code = 29 mmol/L 23-31 6159361233) AGAP (test code = 2-16 2130921972) BUN (test code = 11 mg/dL 7-23 1528194079) GLUCOSE (test code = 109 mg/dL 70-110 9626843083) CREATININE (test code = 1.12 mg/dL 0.50-1.04 H 6999473886) TOTAL BILI (test code = 0.7 mg/dL 0.1-1.4 5492232028) CALCIUM (test code = 9.3 mg/dL 8.6-10.6 5235713346) T PROTEIN (test code = 7.5 g/dL 6.3-8.2 9861999789) ALBUMIN (test code = 4.7 g/dL 3.5-5.0 7944234888) ALK PHOS (test code = 61 U/L 34-122 5065369749) ALTv (test code = 29 U/L 5-35 2-6) AST(SGOT) (test code = 29 U/L 13-40 0313749259) eGFR (test code = mL/min/1.73m2 4135626672) CHRYSTAL (test code = CHRYSTAL) Association of [...] tests). Lab Interpretation Abnormal (test code = 90891-4) [facility] [place] [facility] - [id number] 18:39:28 Test Item Value Reference Range Interpretation Comments RPR (Qualitative) (test code = Nonreactive Nonreactive 30127-2) Lab Interpretation (test code = Normal 28908-9) [facility]-AB WITH [id number] 17:47:56 Test Item Value Reference Range Interpretation Comments HIV Negative Negative Semi-quantitative (test code = 37989-8) CHRYSTAL (test code = Non-reactive for HIV-1 CHRYSTAL) antigen and HIV-1/HIV-2 antibodies. ?No laboratory evidence of HIV infection. ?Repeat in 2-4 weeks if acute HIV infection is suspected. [facility] (85220)2022-09-22 17:10:28 Test Item Value Reference Range Interpretation Comments NA (test code = 139 mmol/L 135-145 1301030118) K (test code = 4.1 mmol/L 3.5-5.0 1576404465) CL (test code = 101 mmol/L 98-108 0073566112) CO2 TOTAL (test code = 26 mmol/L 23-31 7797334123) AGAP (test code = 2-16 3941436222) BUN (test code = 9 mg/dL 7-23 1927650951) GLUCOSE (test code = 93 mg/dL 70-110 5718391268) CREATININE (test code = 0.80 mg/dL 0.50-1.04 5049681437) TOTAL BILI (test code = 0.3 mg/dL 0.1-1.5 4461441861) CALCIUM (test code = 9.6 mg/dL 8.6-10.6 0037651991) T PROTEIN (test code = 7.3 g/dL 6.3-8.2 3307237931) ALBUMIN (test code = 4.7 g/dL 3.5-5.0 6314813310) ALK PHOS (test code = 58 U/L 34-122 6868968025) ALTv (test code = 60 U/L 5-35 H 2-6) AST(SGOT) (test code = 26 U/L 13-40 5903910764) eGFR (test code = mL/min/1.73m2 5575811708) CHRYSTAL (test code = CHRYSTAL) Association of [...] tests). Lab Interpretation Abnormal (test code = 59848-8) [facility] 17:09:46 Test Item Value Reference Range Interpretation Comments LIPASE (test code = 4224958710) 116 U/L 0-220 Lab Interpretation (test code = Normal 17367-6) [facility] WITH [id number] 16:49:23 Test Item Value Reference Range Interpretation Comments WBC (test code = See_Comment [Automated 2290-2) message] The sy stem which generated this [...] RDW-SD (test code = 39.2 fL 39.0-49.9 65141-4) RDW-CV (test code = 12.6 % 12.0-15.5 788-0) PLT (test code = See_Comment [Automated 777-3) message] The sy stem which generated this result transmitted reference range : 166 - 358 10*3/ ?L. The reference r evelina was not used to interpret this result as normal/abnormal . MPV (test code = 12.4 fL 9.5-12.9 06370-2) NRBC/100 WBC (test See_Comment [Automat ed code = 8144979427) message] The system which generated this result transmitted reference range : 0.0 - 10.0 /100 WBCs. The refer ence range was not u sed to interpret th is result as normal/abnormal . NRBC x10^3 (test code See_Comment [Auto mated = 8218155527) message] The s ystem which generated this result transmitted reference range : 10*3/?L. The reference range was not used to interpret this result as normal/abnormal . GRAN MAT (NEUT) % 45.4 % (test code = 770-8) IMM GRAN % (test code 0.40 % = 6908199403) LYMPH % (test code = 42.9 % 736-9) MONO % (test code = 5.9 % 5905-5) EOS % (test code = 4.4 % 713-8) BASO % (test code = 1.0 % 706-2) GRAN MAT x10^3(ANC) 3.64 10*3/uL 1.88-7.09 (test code = 7017801584) IMM GRAN x10^3 (test 0.03 10*3/uL 0.00-0.06 code = 0830068907) LYMPH x10^3 (test code 3.44 10*3/uL 1.32-3.29 H = 731-0) MONO x10^3 (test code 0.47 10*3/uL 0.33-0.92 = 742-7) EOS x10^3 (test code = 0.35 10*3/uL 0.03-0.39 711-2) BASO x10^3 (test code 0.08 10*3/uL 0.01-0.07 H = 704-7) Lab Interpretation Abnormal (test code = 01182-5) [facility] [id number] 16:46:00 Test Item Value Reference Range Interpretation Comments POCT PREG (test code = 1605) negative On board controls acceptable with C present Line (test code = 3574) Lab Interpretation (test code = Normal 74588-4) [facility], CoVID-19, [id number] 12:02:31 Test Item Value Reference Interpretation Comments Range COVID-19 Not Detected Not Detected INTERPRETATION: (SARS-COV-2) (test No detect able code = 21686-0) levels of SARS-CoV-2 Coronavirus (COVID-19) were present [...] its performance characteristics were verified by the [facility] molecular diagnostics laboratory and is authorized for clinical diagnostic use. This laboratory is certified under the Clinical Laboratory Improvement Amendments (CLIA) as qualified to perform high complexity clinical laboratory testing. Lab Interpretation Normal (test code = 94299-3) [facility]-CoV-2 RNA Resp Ql [id number] 12:02:31 Test Item Value Reference Range Interpretation Comments Hospitalized? (test No code = 49067-1) ICU? (test code = No 45403-6) Symptomatic as defined No by CDC? (test code = 14376-8) Employed in No Healthcare? (test code = 49217-2) Resident in a No congregate care setting (including nursing homes, residential care for people with intellectual and developmental disabilities, psychiatric treatment facilities, group homes, board and care homes, homeless nursing home, foster care or other): (test code = 02672-0) ? (test code = No 06724-6) SARS-CoV-2 RNA Resp Ql NOT DETECTED Not Detected INTER PRETATION: No LYNN+probe (test code = detec table levels 27178-1) of SARS-CoV-2 Coronavirus (COVID-19) were present in [...] its performance characteristics were verified by the [facility] molecular diagnostics laboratory and is authorized for clinical diagnostic use. This laboratory is certified under the Clinical Laboratory Improvement Amendments (CLIA) as qualified to perform high complexity clinical laboratory testing.HHSHIV 1+2 Ab+HIV1 p24 Ag SerPl Ql [id number] 16:15:14 Test Item Value Reference Range Interpretation Comments HIV 1+2 Ab+HIV1 p24 Ag SerPl Ql IA NEGATIVE Negative (test code = 44200-5) SRNSPIM-XjI-1 RNA Resp Ql LYNN+[id number] 19:44:08 Test Item Value Reference Range Interpretation Comments Hospitalized? (test No code = 75058-6) ICU? (test code = No 95688-5) Symptomatic as defined No by CDC? (test code = 40376-3) Employed in No Healthcare? (test code = 91100-6) Resident in a No congregate care setting (including nursing homes, residential care for people with intellectual and developmental disabilities, psychiatric treatment facilities, group homes, board and care homes, homeless nursing home, foster care or other): (test code = 66623-1) ? (test code = No 44735-4) SARS-CoV-2 RNA Resp Ql NOT DETECTED Not Detected INTER PRETATION: No LYNN+probe (test code = detec table levels 33805-6) of SARS-CoV-2 Coronavirus (COVID-19) were present in [...] n with SARS-CoV-2 Coronavirus (COVID-19). COMMENT: This VoterTide Xpress SARS-CoV-2 real-time PCR test was developed, and its performance characteristics determined by the [facility] molecular diagnostic Laboratory and is acceptablefor patient testing. It has been approved for patient testing by the FDA under the Emergency Use Auth orization pathway. This laboratory is certified under federal CLIA regulations to perform this type of high complexity testing.HHSCORONAVIRUS COVID-19 TESTING 2021-05-07 08:41:12 Test Item Value Reference Range Interpretation Comments SARS-CoV-2 NAAT (test Not Detected Not Detected code = 06356-6) CHRYSTAL (test code = CHRYSATL) AMKAI Xpert ?Xpress SARS-CoV-2 Assay is a rapid, real-time RT-PCR test intended for the qualitative detection of nucleic acid from the SARS-CoV-2 in nasopharyngeal ([employer]ING [employer]) specimens. It is used under Emergency Use [...] indicated. Lab Interpretation Normal (test code = 99523-8) [facility] 03:04:56 Test Item Value Reference Range Interpretation Comments CK-MB (test code = 0.26 ng/mL See_Comment [Automat ed 5466281273) message] The system which generated this result transmitted reference range : <=3.50. The reference range was not used to interpret this result as normal/abnormal . CHRYSTAL (test code = CHRYSTAL) Biotin has been reported to cause a negative bias, interpret results relative to patient's use of biotin. Lab Interpretation Normal (test code = 29043-0) [facility]OT[facility] [id number] 13:45:16 Test Item Value Reference Range Interpretation Comments K (test code = 7606924922) 3.6 mmol/L 3.5-5.0 Lab Interpretation (test code = Normal 61415-2) [facility] Metabolic Panel (NA, K, CL, CO2, GLUCOSE, BUN, CREATININE, CA)2021-05-06 06:41:14 Test Item Value Reference Range Interpretation Comments NA (test code = 139 mmol/L 135-145 2273649638) K (test code = 2.8 mmol/L 3.5-5.0 LL 0427574077) CL (test code = 99 mmol/L 98-108 2155332569) CO2 TOTAL (test code = 26 mmol/L 23-31 6297713023) AGAP (test code = 2-16 9169887270) BUN (test code = 9 mg/dL 7-23 2440538709) GLUCOSE (test code = 110 mg/dL 70-110 7070108206) CREATININE (test code = 0.86 mg/dL 0.50-1.04 1923053083) CALCIUM (test code = 9.9 mg/dL 8.6-10.6 8023767467) eGFR (test code = mL/min/1.73m2 9999520137) CHRYSTAL (test code = CHRYSTAL) Association of [...] tests). Lab Interpretation Abnormal (test code = 42708-5) [facility] (ALB, T.PRO, BILI T, BU/BC, ALT, AST, ALK PHOS)2021-05-06 06:38:33 Test Item Value Reference Range Interpretation Comments TOTAL BILI (test code = 4056430329) 0.6 mg/dL 0.1-1.1 BILI UNCON (test code = 1992815036) 0.4 mg/dL 0.1-1.1 BILI CONJ (test code = 5868720035) 0.0 mg/dL 0.0-0.3 T PROTEIN (test code = 2990034778) 8.3 g/dL 6.3-8.2 H ALBUMIN (test code = 7723752595) 4.9 g/dL 3.5-5.0 ALK PHOS (test code = 1095281737) 60 U/L 34-122 ALTv (test code = 1742-6) 15 U/L 5-35 AST(SGOT) (test code = 5753900548) 23 U/L 13-40 Lab Interpretation (test code = Abnormal 20877-7) [facility] (IMMUNOASSAY) - COMPREHENSIVE DRUG [id number] 06:17:10 Test Item Value Reference Range Interpretation Comments AMPHET (test code = Presumptive Positive Negative A 9062558654) CHARLIE U (test code = Negative Negative 5881623487) BENZO U (test code = Negative Negative 1025045736) Cocaine Metabolite (test Negative Negative code = 9185776320) METHADONE (test code = Negative Negative 2980363236) OPIATES (test code = Presumptive Positive Negative A 6678471770) PCP (test code = Negative Negative 1947555061) THC (test code = Negative Negative 8005641815) CHRYSTAL (test code = CHRYSTAL) Urine Drug [...] testing). 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 Analgesic and Antipyretic Use ? 20-100 mg/L ? ? Anti-Inflammatory Use ? 100-250 mg/L Toxic Range: ? Greater than 300 mg/L [facility]ACETAMINOPHEN2021-06-14 05:41:14 Test Item Value Reference Range Interpretation Comments ACETAMINOP (test code = <10.0 10.0-30.0 L 3868244475) CHRYSTAL (test code = CHRYSTAL) Toxic: Greater than 200 ug/mL @ 4 hour post ingestion or greater than 50 ug/mL @ 12 hour post ingestion Lab Interpretation (test Abnormal code = 39704-2) [facility] HospitalC[facility] (ID NOW RAPID TESTING)2021-05-06 04:35:50 Test Item Value Reference Range Interpretation Comments SARS-CoV-2 Rapid ID NOW Not Detected Not Detected (test code = 37705-6) CHRYSTAL (test code = CHRYSTAL) ID NOW COVID-19 Assay is an isothermal nucleic acid amplification test intended for the qualitative detection of nucleic acid from SARS-CoV-2 viral RNA in nasopharyngeal ([employer]) specimens. It is used under Emergency Use [...] indicated. Lab Interpretation Normal (test code = 82849-0) [facility] HospitalUrinalysis2021-06-14 04:29:33 Test Item Value Reference Range Interpretation Comments APPEARANCE (test code = Hazy Clear A 6140096791) COLOR (test code = Elva Yellow A 5661195946) PH (test code = 4.8-8.0 7382179360) SP GRAVITY (test code = 1.003-1.030 H 7256667226) GLU U QUAL (test code = Normal Normal 7930066156) BLOOD (test code = Negative Negative 4356506807) KETONES (test code = 5 mg/dL Negative A 3147766481) PROTEIN (test code = 30 mg/dL Negative A 2887-8) UROBILIN (test code = 2.0 mg/dL Normal A 4485679830) BILIRUBIN (test code = 2 mg/dL Negative A 2085372758) NITRITE (test code = Negative Negative 5942198147) LEUK KARINE (test code = 75/uL Negative A 3165022007) RBC/HPF (test code = See_Comment H [Autom ated message] 6557361316) The system Picomize generated this result transmit yi reference range : 0 - 3 HPF. The refe rence range was not u sed to interpret th is result as normal/abnormal . WBC/HPF (test code = See_Comment H [Autom ated message] 2599932573) The system Pic[employer]ize generated this result transmit yi reference range : 0 - 5 HPF. The refe rence range was not u sed to interpret th is result as normal/abnormal . BACTERIA (test code = Few Negative A 1576396392) MUCOUS (test code = Marked Negative LPF A 7435881698) SQ EPITH (test code = HPF 5824523932) HYAL CAST (test code = See_Comment H [Aut omated message] 2258334282) The system whic h generated this result transmit yi reference range : <=2 LPF. The refere nce range was not u sed to interpret th is result as normal/abnormal . Lab Interpretation (test Abnormal code = 81024-3) [facility] with Eewqviglfdwu5243-53-90 04:15:45 Test Item Value Reference Range Interpretation [...] (test code = 37.9 fL 39.0-49.9 L 05822-5) RDW-CV (test code = 12.2 % 12.0-15.5 788-0) PLT (test code = See_Comment [Automated 777-3) message] The sy stem which generated this result transmitted reference range : 166 - 358 10*3/ ?L. The reference r evelina was not used to interpret this result as normal/abnormal . MPV (test code = 12.2 fL 9.5-12.9 61888-8) NRBC/100 WBC (test See_Comment [Automat ed code = 4568374897) message] The system which generated this result transmitted reference range : 0.0 - 10.0 /100 WBCs. The refer ence range was not u sed to interpret th is result as normal/abnormal . NRBC x10^3 (test code <0.01 See_Comment [Auto mated = 3078411168) message] The s ystem which generated this result transmitted reference range : 10*3/?L. The reference range was not used to interpret this result as normal/abnormal . GRAN MAT (NEUT) % 57.5 % (test code = 770-8) IMM GRAN % (test code 0.30 % = 1909717691) LYMPH % (test code = 33.7 % 736-9) MONO % (test code = 6.8 % 5905-5) EOS % (test code = 0.7 % 713-8) BASO % (test code = 1.0 % 706-2) GRAN MAT x10^3(ANC) 5.18 10*3/uL 1.88-7.09 (test code = 1723628930) IMM GRAN x10^3 (test 0.03 10*3/uL 0.00-0.06 code = 9757802887) LYMPH x10^3 (test code 3.04 10*3/uL 1.32-3.29 = 731-0) MONO x10^3 (test code 0.61 10*3/uL 0.33-0.92 = 742-7) EOS x10^3 (test code = 0.06 10*3/uL 0.03-0.39 711-2) BASO x10^3 (test code 0.09 10*3/uL 0.01-0.07 H = 704-7) Lab Interpretation Abnormal (test code = 42829-5) [facility]PO[facility] [id number] 04:08:00 Test Item Value Reference Range Interpretation Comments POCT PREG (test code = 1605) negative On board controls acceptable with C present Line (test code = 3574) Lab Interpretation (test code = Normal 60990-5) [facility] [id number] 01:00:00 [facility] : 1985 Sex: FPatient Name: AMANDA KO Unit No: [id number] EXAMS: CPT: [id number] CT ABD PELVIS W/CONT 14389 CT ABDOMEN AND PELVIS WITH IV CONTRAST: [...] accordance withACR practice standards and adherence to coating machine feeder's recommendations with automated exposure control. at 0100 Reported and signed by: Jefferson Alvarado MD CC: Technologist: JUANJOSE Randle CTDI: 7.55 DLP: 377.14 Trscr Dt/Tm: 09/09/2020 (0100) by:[email or web address] Orig Print D/T: S: 09/09/2020 (0103) BATCH NO: N/A Name: AMANDA KO [facility] Phys: [id number] Melvin Alatorre Holger [address] [place] : 1985 Age: 35 Sex: F [place], [place] [address] Loc: N.ERS Exam Date: 09/08/2020 Status: REG ER PH: FAX: PAGE 1 Signed ReportCOMPREHENSIVE METABOLIC [id number] 00:21:00 Test Item Value Reference Range Interpretation [...] 42-121 N PHOSPHATASE (test code = ALKP) [id number] 00:21:00 Test Item Value Reference Range Interpretation Comments LIPASE (test code = LIP) 35 IU/L 22-51 N URINALYSIS [id number] 23:59:00 Test Item Value Reference Range Interpretation [...] MUCU) 2+ /LPF NONE SEEN UR HCG [id number] 23:58:00 Test Item Value Reference Range Interpretation Comments UR HCG QUAL (test code = HCGQLU) NEGATIVE NEGATIVE HCG SERUM [id number] 23:52:00 Test Item Value Reference Range Interpretation Comments HCG SERUM QUAL NEGATIVE NEGATIVE This is a suzanne litative (test code = HCGQL) screenin g test.The quantitative Bh cg may be helpful.Weakly positive results should be repeated in 48 hours. CBC W/AUTO [id number] 23:46:00 Test Item Value Reference Range Interpretation [...] 0.1 x10 3/uL 0.0-0.1 N CBC W/AUTO [id number] 23:41:00 Test Item Value Reference Range Interpretation [...] code = EO#) x10 3/uL 0.0-0.5 FALLOPIAN [id number] 09:35:00 RUN DATE: 04/26/20 UBIKOD Lab PAGE 1 RUN TIME: 35 Specimen Inquiry RUN USER: INTERFACE JEREMIAS T: AMANDA KO LOC: SANDY U #: [id number] AGE/SX: 35/F ROOM: RE04/25/20REG DR: Zachariah Puente : [birth year] BED: DIS: [place] [facility] [place] SPEC #: [id number] RECD: 04/25/20 STATUS: IAN TODD #: [id number] MEL: 04/25/[address]: Zachariah Puente MD ENTERED: 04/25/20 SP TYPE: FALLOPIAN OTHR DR: No Primary or Family PhysicianORDERED: KASHMIR L2-68852, BLOCK-CT/SL-NBC/2, SLIDE-CT/SL- NBC/2 COPIES TO: No Primary or Family Physician Zachariah Puente MD [address] [place] [address]. [address] [place] [address] PROCEDURES: KASHMIR L2- 95606 (04/25/20) BLOCK-CT/SL-NBC (04/25/20) SLIDE-CT/SL-NBC (04/25/20854) TISSUES: A. FALLOPIAN TUBE - BILATERAL CLINICAL HISTORY STERILIZATION FINAL DIAGNOSIS FALLOPIAN TUBES, BILATERAL, SALPINGECTOMY: - COMPLETE CROSS SECTIONS OF FALLOPIAN TUBE LUMENS IDENTIFIED - BENIGN CYSTIC WALTHARD CELL NESTS CPT Codes: 55819 x 2 GROSS DESCRIPTION The paperwork, container, and cassettes are all labeled [id number]. Received in formalin, labeled with the patient's name (Amanda Ko), medical record number, and "bilateral fallopian tubes" [...] CONTINUED ON NEXT PAGE RUN DATE: 04/26/20 UBIKOD Lab PAGE 2 RUN TIME: 934 Specimen Inquiry RUN USER: INTERFACE SPEC #: [id number] PATIENT: AMANDA KO #[id number] (Continued) -- GROSS DESCRIPTION(Continued) lumen is pinpoint. Ink code: Black - second segment. Sections to include the entire fimbriae of each segment are submitted: A1, first segment; A2, second segment. SHANNEN//pardeep Signed SIGNATURE ON FILE Cayden Avilez MD 04/26/20 0935 END OF REPORT URINALYSIS [id number] 07:10:00 Test Item Value Reference Range Interpretation [...] comments: PRE OP FOR SURGERYNovel Coronavirus 2019 [id number] 07:26:00 Test Item Value Reference Range Interpretation Comments Novel Coronavirus 2019 Inhouse (test Negative Negative code = COVNONPUI) Testing Criteria Pre-Procedure ScreeningNovel Coronavirus 2019 [id number] 07:25:00 Test Item Value Reference Range Interpretation Comments Novel Coronavirus 2019 Inhouse (test Negative Negative code = COVNONPUI) Testing Criteria Pre-Procedure ScreeningHCG SERUM [id number] 13:16:00 Test Item Value Reference Range Interpretation Comments HCG SERUM QUAL (test code = HCGQL) NEG SCREEN NEG CBC W/O [id number] 13:02:00 Test Item Value Reference Range Interpretation [...] 6.8-11.2 H MPV) - US PREG UT [id number] 20:04:00 Patient Name: AMANDA FRNECH Unit No: [id number] EXAMS: CPT CODE: [id number] US PREG UT [id number] Examination: Ultrasound transvaginal Location code: H60 Comparison: None Discussion: Clinical history is remarkable for pelvic pain. Uterus measures 8.1 x 6.4 x 7.6 cm. An intrauterinegestation is identified. Dunlevy-rump length measures 3.41 cm which corresponds to [...] Esquivel RDMS Trnscrbd D/ (2003) ElizabethVR5 Probe: [id number] Orig Print D/T: S: 01/21/2020 (2006) Probe: GUERLINE Soriano NAME: [address] PHYS: [place], [place] [address] : 1985 AGE: 34 SEX: F LOC: TUAN PHONE #: [phone] EXAM DATE: 01/21/2020 STATUS: REG ER FAX #: [phone] RAD NO: Page 1 Signed ReportBASIC METABOLIC [id number] 19:09:00 Test Item Value Reference Range Interpretation [...] 1 NORMAL code = LIPINDEX) Index/DL HCG [id number] 19:09:00 Test Item Value Reference Range Interpretation Comments HCG SERUM (test 12728 mi-IU/ML 0-3 H HCG RANGE S DURING code = HCG) NORMAL PREGNANC YPOST LMP 3-4 WEEKS 9 - 130 MIU/ML4-5 WEEKS 75 - 2,600 MIU/ML5-6 WEEKS 850 - 20,800 OR U/ML6-7 WEEKS 4,000 - 1 00,200 MIU/ML7-12 WEEK S 11,500 - 289,000 MIU/M L12-16 WEEKS 18,300 - 137,000 MIU/ML16-29 WEE KS 1,400 - 53,000 MIU/ML 29-41 WEEKS 940 - 60, 000 MIU/ML BASIC METABOLIC [id number] 18:52:00 Test Item Value Reference Range Interpretation [...] 1 NORMAL code = LIPINDEX) Index/DL HCG [id number] 18:52:00 Test Item Value Reference Range Interpretation Comments HCG SERUM (test code = HCG) mi-IU/ML 0-3 URINALYSIS [id number] 18:49:00 Test Item Value Reference Range Interpretation [...] >0 /HPF NONE-SQepi code = SQU) URINALYSIS [id number] 18:48:00 Test Item Value Reference Range Interpretation [...] code = RBCU) #RBC/HPF 0-3 CBC W/O [id number] 18:35:00 Test Item Value Reference Range Interpretation [...] 11.6 fL 6.8-11.2 H MPV) HCG SERUM [id number] 02:56:00 Test Item Value Reference Range Interpretation Comments HCG SERUM QUAL (test code = HCGQL) NEG SCREEN NEG COMPREHENSIVE METABOLIC [id number] 02:14:00 Test Item Value Reference Range Interpretation [...] 1 NORMAL code = LIPINDEX) MG Index/DL [id number] 02:14:00 Test Item Value Reference Range Interpretation Comments ALCOHOL (test code = < 3 MG/DL 0-10 N MEDICAL ALCOHOL ALC) RESULTS. SITE W PREPPED WITH BE TADINE. <10 MG/DL ARE CONSIDERED NEGA TIVE. >400 MG/DL MAY BE FATAL.RESULTS F OR MEDICAL USE ONL Y. NOT TO BE USED FOR FORENSIC PURPOSES. COMPREHENSIVE METABOLIC [id number] 02:13:00 Test Item Value Reference Range Interpretation [...] 1 NORMAL code = LIPINDEX) MG Index/DL [id number] 02:13:00 Test Item Value Reference Range Interpretation Comments ALCOHOL (test code = < 3 MG/DL 0-10 N MEDICAL ALCOHOL ALC) RESULTS. SITE W PREPPED WITH BE TADINE. <10 MG/DL ARE CONSIDERED NEGA TIVE. >400 MG/DL MAY BE FATAL.RESULTS F OR MEDICAL USE ONL Y. NOT TO BE USED FOR FORENSIC PURPOSES. CBC W/AUTO [id number] 01:48:00 Test Item Value Reference Range Interpretation [...] code = 0.00 K/mm3 0.0-0.05 N NRBC#) Notes Date/Time Note Provider Source 2020-09-08 23:07:00-00:00 [facility]ANW [facility] ([facility] EMERGENCY PROVIDER REPORT REPORT#:[id number] REPORT STATUS: Signed DATE:09/08/20 TIME: 2306 PATIENT: AMANDA KO UNIT #: [id number] ROOM: BED: AGE: 35 SEX: F PCP PHYS: No Primary or Family Ph ysician SERVICE AUTHOR: Melvin Alvarado * ALL edits or amendments must be made on the nap- Naturally Attached Parents/computer document * HPI-Abd Pain F Under 40 General Initial Greet Date/Time 09/08/202223 Presentation Chief Complaint Abdominal pain Hx Obtained From Patient Free Text HPI Notes Free Text HPI Notes Patient with sudden onset of right lower quadrant abdominal pain approximately 9 PM. Pain is very severe makes it difficult for t he patient to sit still. Patient's last period was a week and a half ago. Patient has history of tubal ligation. Patient denies fever cough congestion or shortness of breath. Risk-Abd Pain F Under 40 )( Ectopic Risk factors reviewed Review of Systems ROS Statements All systems rev neg except as marked. Complete sys rev neg except as marked. Basic Review of Systems Basic ROS EYES: No redness, ENT: No sore throat, HEM: No bleeding/bruising, SKIN : No rash, NEURO: No change MS, NEURO: No focal deficit, PSYCH: NL thought content Past Medical History - Adult Stated Complaint Right groin pain. Allergies Coded Allergies: No Known Allergies (09/08/20) Pt reports no significant: Past medical history, Past surgical history, Family history, Social history Smoking status for patients 13 years old or olde r: Unknown,if ever smoked Physical Exam Vital Signs Vital Signs First Documented: Result Date Time Pulse Ox 98 09/08 2225 B/P 114/77 09/08 2225 B/P Mean 89.4 09/08 2225 Temp 36.8 09/08 2225 Pulse 91 09/08 2225 Resp 18 09/08 2225 O2 Delivery Room air 09/08 2336 Last Documented: Result Date Time Pulse Ox 99 09/08 2336 B/P 132/85 09/08 2336 B/P Mean 100 09/08 2336 O2 Delivery Room air 09/08 2336 Pulse 97 09/08 2336 Resp 16 09/08 2336 Temp 36.8 09/08 2225 Review of Vital Signs Reviewed Focused PE General/Const General/Const Awake, Alert, Well appearing Text/Dict Notes Patient appears to be in mild to moderate distre ss MS Head Head Normocephalic Eyes Eyes PERRL Ears/Nose/Throat Ears/Nose/Throat Airway patent, Mucous membrane s moist, Pharynx NL Resp/Chest Respiratory/Chest Breath sounds NL, Breath soun ds = bilat, No respiratory distress, No rales, No rhonchi, No wheezing Cardiovascular Cardiovascular Heart rate NL, Regular rhythm, H eart sounds NL, Peripheral circulation NL Abdomen/GI Abdomen/GI McBurney's non-tender, No gu arding, No rebound, BS normoactive, No distention, No hernia, No palpable mass Text/Dict Notes Right lower quadrant tenderness to palpation no guarding or rebound noted. MS Back Back Inspection NL, Non-tender, No CVA tenderne ss Skin Skin Color NL, Warm, Dry, Turgor NL Genitourinary Female Genitourinary External genitalia NL, No bleeding, No discharge, No cervical motion tend, Os closed, No adnexal mass , No adnexal tenderness, No uterine enlargement, No uterine mass, No lesions or rash Rectum Rectum/Perineum Blood - occult heme neg, Qualit y control passed, No gross blood, No fissures, No hemorrhoids, Sphincter to ne NL Neurologic Neurologic Oriented X3, Speech NL, No motor def icits, No sensory deficits Interpretation Diagnostics Lab Results Interpretation Results Laboratory Tests 09/08/202314: [Embedded Image Not Available] Laboratory Tests: 09/08 Chemistry Sodium (135 - 145 mmol/L) 138 Potassium (3.6 - 5.0 mmol/L) 3.8 Chloride (101 - 111 mmol/L) 104 Carbon Dioxide (21 - 31 mmol/L) 24 BUN (6 - 20 mg/dl) 6 Creatinine (0.44 - 1.03 mg/dL) 0.89 Glomerular Filtr Rate (>60) >=60 max estimate Glucose (70 - 100 mg/dl) 82 Calcium (8.5 - 10.5 mg/dL) 9.2 Total Bilirubin (0.2 - 1.3 mg/dL) 0.40 AST (10 - 42 U/L) 16 ALT (10 - 60 U/L) 16 Total Alk Phosphatase (42 - 121 U/L) 43 Total Protein (6.7 - 8.2 g/dL) 6.7 Albumin (3.2 - 5.5 g/dL) 3.9 Lipase (22 - 51 IU/L) 35 Serum HCG, Qual (NEGATIVE) NEGATIVE Hematology WBC (3.2 - 11.5 x10 3/uL) 8.9 RBC (3.70 - 5.10 x10(6)/m) 4.59 Hgb (12.0 - 15.0 g/dL) 13.7 Hct (35.7 - 44.8 %) 40.1 MCV (80 - 100 fL) 87 MCH (26.2 - 33.8 pg) 29.8 MCHC (30.0 - 34.0 g/dL) 34.2 H RDW (11.3 - 14.5 %) 11.9 Plt Count (130 - 408 x10 3/uL) 189 MPV (8.6 - 12.6 fL) 11.9 Neut % (Auto) (40.0 - 70.0 %) 47.2 Lymph % (Auto) (20 - 40 %) 39.2 Kidder % (Auto) (1 - 10 %) 7.1 Eos % (Auto) (0.0 - 5.0 %) 5.1 H Baso % (Auto) (0.0 - 1.0 %) 1.2 H Neut # (Auto) (1.6 - 7.2 x10 3/uL) 4.2 Lymph # (Auto) (1.1 - 2.7 x10 3/uL) 3.49 H Kidder # (Auto) (0.3 - 0.8 x10 3/uL) 0.6 Eos # (Auto) (0.0 - 0.5 x10 3/uL) 0.5 Baso # (Auto) (0.0 - 0.1 x10 3/uL) 0.1 Immature Gran % (0.0 - 2.0 %) 0.2 Nucleated RBC % (0.0 - 0.9 %) 0.0 Urines Urine Color (YELLOW) YELLOW Urine Appearance (CLEAR) HAZY Urine pH (5.0 - 9.0) 5.0 Ur Specific [place] (1.001 - 1.030) 1.016 Urine Protein (NEGATIVE) 1+ H Urine Glucose (UA) (NEGATIVE) NEGATIVE Urine Ketones (NEGATIVE) NEGATIVE Urine Blood (NEGATIVE) NEGATIVE Urine Nitrite (NEGATIVE) NEGATIVE Urine Bilirubin (NEGATIVE) NEGATIVE Urine Urobilinogen (<=1.0) 2.0 H Ur Leukocyte Esterase (NEGATIVE) NEGATIVE Urine RBC (0 - 5 /HPF) 6-10 Urine WBC (0 - 5 /HPF) 0-5 Ur Epithelial Cells (NONE - FEW /LPF) FEW Calcium Oxalate Crystal (NONE SEEN /HPF) FEW Urine Bacteria (NONE SEEN /HPF) 1+ H Hyaline Casts (0 - 1 /LPF) 0-1 Urine Mucus (NONE SEEN /LPF) 2+ Urine Ascorbic Acid NEGATIVE Urine HCG, Qual (NEGATIVE) NEGATIVE Recent Impressions: CAT SCAN - CT ABD PELVIS W/CONT 09/08 003 Report Impression - Status: SIGNED Entered: 09/09/2020 0103 IMPRESSION: Negative CT of the abdomen and pelvi s. DLP: 377.14 mGy-cm IV Contrast: [address] dose optimization is achieved for this examin ation by the use of a CT protocol in accordance with ACR practice [facility] and adherence to coating machine feeder's recommendations with automated ex posure control. Impression By: [email or web address] - Jefferson Alvarado MD Re-Evaluation MDM )( Re-Evaluation/Progress #1 Text/Dict Note Patient still complaining of pain in right lower quadrant. I discussed with patient CT findings. There is no evidenc e of a large ovarian cyst. Appendix is normal. Patient's lab work is normal. Time of Re-Eval 0111 )( Re-Eval Status Improved ED Course Medication(s) Ordered Medication(s) Ordered: Central Nervous System Agents Sig/Fidel Start time Last Medication Dose Route Stop Time Status Admin Morphine Sulfate 4 MG X1ED STA 09/08 2314 DC IV 09/08 2315 2333 Ketorolac 30 MG X1ED STA 09/08 2225 DC 09/08 Tromethamine IV 09/08 2226 2312 Diagnostic Agents Sig/Fidel Start time Last Medication Dose Route Stop Time Status Admin Iopamidol 0 .STK-MED ONE 09/09 0003 DC 09/09 IV 0030 Gastrointestinal Drugs Sig/Fidel Start time Last Medication Dose Route Stop Time Status Admin Ondansetron HCl 4 MG X1ED STA 09/08 2314 DC IV 09/08 2315 2333 Patient Discharge Departure Vital Signs/Condition Vital Signs First Documented: Result Date Time Pulse Ox 98 09/08 2225 B/P 114/77 09/08 2225 B/P Mean 89.4 09/08 2225 Temp 36.8 09/08 2225 Pulse 91 09/08 2225 Resp 18 09/08 2225 O2 Delivery Room air 09/08 2336 Last Documented: Result Date Time Pulse Ox 99 09/08 2336 B/P 132/85 09/08 2336 B/P Mean 100 09/08 2336 O2 Delivery Room air 09/08 2336 Pulse 97 09/08 2336 Resp 16 09/08 2336 Temp 36.8 09/08 2225 All vital signs available at the time of this en try have been reviewed. Condition Stable, Improved Clinical Impression Clinical Impression Primary Impression: Abdominal pain Time of Impression 011 Disposition Decision Discharge )( Discharged to Home Yes )( Time 011 )( Date 09/09/20 Discharge/Care Plan (Auto) Prescriptions Current Visit Scripts Naproxen (Naprosyn) 500 MG PO BID PRN PRN PAIN Naproxen (Naprosyn) 500 MG PO BID PRN PRN PAIN #15 TABS Patient Instructions ED Abdominal Pain Cause Unk n Fem Inf Td Discharge Note I have spoken with the patie nt and/or caregivers. I have explained the patient's condition, diagnoses and fantasma atment plan based on the information available to me at this time. I have answered the patient's and/ or caregiver's questions and addressed any concerns. The patient and/or careg nae have as good an understanding of the patient 's diagnosis, condition and treatment plan as can be expected at this point. The vital signs have bee n stable. The patient's condition is stable and appr opriate for discharge from the emergency department. The patient will pursue further outpatient evalu ation with the primary care physician or other designated or consulting phys tonny as outlined in the discharge instructions. The patient and/or caregivers are agreeable to this plan of care and follow-up instructions have been exp lained in detail. The patient and/or caregivers have received these instructio ns in written format and have expressed an understanding of the discharge inst ructions. The patient and/or caregivers are aware that any significant change in condition or worsening of symptoms should prompt an immediate return to [facility] or the closest emergency department or a call to 911. at 0623 RPT #:[id number] END OF REPORT 2020-04-25 08:17:00-00:00 [facility] ([facility]) DT Operative Note REPORT#:[id number] REPORT STATUS: Signed DATE:04/25/20 TIME: 816 PATIENT: AMANDA KO UNIT #: [id number] ROOM/BED: : 84 AGE: 35 SEX: F ATTEND: Danie Puente MD ADM AUTHOR: Zachariah Puente MD * ALL edits or amendments must be made on the nap- Naturally Attached Parents/computer document * Operative Report Operative Note Note: Date of service 04/25/2020 Preoperative diagnosis: Multiparity desires perm anent sterilization. Postop diagnosis: Same. Procedure: Diagnostic laparoscopy Laparoscopic bilateral salpingectomy Surgeon: Enrique Puente MD. Cash Poster: None. Estimated blood loss: 10 cc. Fluid: Per anesthesia. Anesthesia: General. Complications: None. Specimens removed: Bilateral fallopian tubes. Operative findings: Normal uterus tubes and ovaries. Narrative: Patient is taken operating general anesthesia wa s found to be adequate exam anesthesia demonstrated normal sized midposition uterus normal adnexa. Patient is prepped draped normal sterile fashion para for vaginal laparoscopic surgery bladder was drained approximately 75 cc of clear urine. Weighted retractor was placed in the posterior compartmen t and a Berkley retractor was placed in the anterior rosie rtment. The anterior lip of the cervix was serially was grasped with single-tooth tenaculum serially dilated with a Hegar dilators to accommodate uterine manipulator after soundin g the uterus to 8 cm. Attention was then turned to the abdomen. Small intraumbilical incision was made and the s cope was placed utilizing the Fios laparoscopic trocar. Therefore the trocar a nd camera were inserted under direct visualization. The pneumoperitone um was established with carbon dioxide not to exceed 16 mmHg any point during t he case. A 5 mm trocar was inserted in the left lower quadrant under direct visualizati on lateral to the inferior epigastric artery. 8 mm trochars inserted in the right lower quadrant under direct visualization and lateral to the inferior epigastric artery. Patient was placed in steep Trendelenburg. The t ubes were followed out to the fimbriated end bilaterally. The LigaSure was then placed laparoscopically and the mesosalpinx was identified clamped coapted and cut to the level of the uter ine cornu and the tube was transected at the uterine cornu. Both sides are treated exactly the same. The fallopian tubes were then removed through th e 8 mm port individually and sent for final pathologic analysis. The pneumoperitoneum was then decreased to 6 mmH g all operative sites were reinspected not have excellent hemostasis. Family fascia were then applied to both sides of the mesosalpinx to aid in healing and prevent adhesion formation Pneumoperitoneum was expressed. Trochars were removed. Subcu was closed with 3 oh plain. The skin was closed with Dermabond. Uterine manipulator was removed without difficul ty. There is no bleeding. Patient tolerated procedure well. She was taken recovery room stable condition. Sponge lap and needle count correct x3. Enrique Puente MD at 0937 RPT #:[id number] END OF REPORT 2020-01-21 18:11:00-00:00 [facility] ([facility]) EMERGENCY PROVIDER REPORT REPORT#:[id number] REPORT STATUS: Signed DATE:01/21/20 TIME: 1810 PATIENT: AMANDA FRENCH UNIT #: [id number] ROOM/BED: AGE: 34 SEX: F PCP PHYS: No Primary or Family Ph ysician SERVICE AUTHOR: Milly Portillo * ALL edits or amendments must be made on the nap- Naturally Attached Parents/computer document * Milly Portillo 01/21/201810: HPI- Female General Confirmed Patient Yes Patient Type New patient Assumed Care at Time 1827 Date 01/21/20 Presentation Chief Complaint Abdominal pain, Pelvic pain, Vag inal bleeding Hx Obtained From Patient )( Sudden in Onset? No Onset Occurred Today Context of Onset Spontaneous Caused by No trauma by history Location Abdomen diffuse Quality Cramping Radiation Back. Severity: Onset Mild Severity: Current Mild Associated with Denies: Chills, Constipation, Fever, Nausea, Silas h, UTI symptoms, Vomiting. Context /Sexual Hx Last Menstrual Period 11/09/20 3 Para 2 Free Text HPI Notes Free Text HPI Notes Patient is a 34-year-old female who presents to the ER with complaint of back pain, abdominal pain, light vaginal bleeding that started today. Patient LMP , and states she has not been seen for h er current . Patient states that she has diffuse pelvic cramping and sharp pain to her left lower quadrant. Patient has vaginal bleeding that she describes as spotting and not saturating through her pad. Denies any headache, dizziness, weakness chest pain , shortness of breath, nause a, vomiting, diarrhea,, dysuria, rashes or lesions. Risk- Female Risk Stratification Ectopic Risk factors reviewed Review of Systems ROS Statements All systems rev neg except as marked. Focused Review of Systems Constitutional Denies: Chills, Fever. GI Reports: Abdominal pain. Denies: Constipation, D iarrhea, Nausea, Vomiting. Female Reports: Pelvic pain, Pregna nt, Vaginal bleeding - abnl. Denies: Dysuria, Flank pain, Hematuria. Musculoskeletal Reports: Back pain. Denies: Extremity pain, Extr emity swelling. Skin Denies: Rash, Swelling. Neurologic Denies: Dizziness, Generalized weakness, Headach e. Additional Review of Systems Respiratory Denies: Shortness of breath. Cardiovascular Denies: Chest pain. Past Medical History - Adult Stated Complaint I AM ALMOST 11 WKS AND I AM SPOTTIN Allergies Coded Allergies: No Known Allergies (12/07/13) Home Medications Reported Medications AMPHETAMINE/DEXTROAMPHETAMINE SALTS (ADDERALL) 2 0 MG PO TID clonazePAM (KlonoPIN) 1 MG PO TID MIRTAZAPINE (REMERON) 45 MG PO BEDTIME PNV/FE FUM/FA ( MULTIVITAMIN) 1 TAB PO D AILY ESCITALOPRAM (LEXAPRO) 20 MG PO DAILY Review of Nursing Notes Not reviewed nurse notes Additional Medical History bipolar, adhd Additional Surgical History NONE Alcohol Use Alcohol use Drug Use Denies recreational drugs Smoking status for patients 13 years old or olde r: Unknown,if ever smoked Physical Exam Vital Signs Vital Signs First Documented: Result Date Time Pulse Ox 97 1654 B/P 135/66 165 B/P Mean 89 1653 Temp 37.0 1653 Pulse 99 1654 Resp 18 1653 Last Documented: Result Date Time Pulse Ox 100 2024 B/P 142/81 2024 B/P Mean 101 2024 Temp 37.0 2024 Pulse 86 2024 Resp 18 2024 Review of Vital Signs Reviewed Focused PE General/Const General/Const Awake, Alert, No acute distress, Well appearing, Well hydrated Resp/Chest Respiratory/Chest Breath sounds NL, Breath soun ds = bilat Cardiovascular Cardiovascular Heart rate NL, Regular rhythm Abdomen/GI Abdomen/GI Atraumatic, Soft, Non-tender, McBurn ey's non-tender, No guarding, No rebound, BS normoactive, No distention MS Back Back Atraumatic, Inspection NL, Full range of m otion, Painless range of motion, Non-tender, No CVA tenderness Skin Skin Atraumatic, Color NL, No rash, War m, Dry, Intact, Turgor NL, No swelling Genitourinary General Exam deferred Additional PE MS Head Head Atraumatic, Normocephalic Eyes Eyes Atraumatic, PERRL, EOMI, Conjunctiva NL, E yelids NL Ears/Nose/Throat Ears/Nose/Throat Atraumatic, Airway patent, Muc ous membranes moist MS Neck Neck Atraumatic, Supple Neurologic Neurologic Oriented X3, Speech NL, No motor def icits, No sensory deficits Psychiatric Psychiatric Affect NL, Mood NL Interpretation Diagnostics Lab Results Interpretation Lab Imaging Statement Laboratory radiographic studies reviewed and con sidered in the medical decision-making. Point of Care Testing Pulse Oximetry Pulse Ox % 97 On: Room air Interpretation Interpreted by me, Pulse oximetr y normal Time 1832 Re-Evaluation MDM ED Course Medication(s) Ordered Medication(s) Ordered: Central Nervous System Agents Sig/Fidel Start time Last Medication Dose Route Stop Time Status Admin Acetaminophen 1,000 MG X1ED STA 1809 DC PO 1810 Patient Discharge Departure Vital Signs/Condition Vital Signs First Documented: Result Date Time Pulse Ox 97 1653 B/P 135/66 1653 B/P Mean 89 1653 Temp 37.0 1653 Pulse 99 1653 Resp 18 1653 Last Documented: Result Date Time Pulse Ox 100 2024 B/P 142/81 2024 B/P Mean 101 2024 Temp 37.0 2024 Pulse 86 2024 Resp 18 2024 All vital signs available at the time of this en try have been reviewed. Asa Carvalho 01/21/20 2013: HPI- Female General Initial Greet Date/Time 01/21/20 1702 Interpretation Diagnostics Lab Results Interpretation Results Laboratory Tests 01/21/20 1800: [Embedded Image Not Available] Laboratory Tests: 1800 1749 Chemistry Sodium (133 - 144 mmol/L) 133.0 Potassium (3.5 - 5.1 mmol/L) 3.7 Chloride (95 - 105 mmol/L) 103 Carbon Dioxide (21 - 32 mmol/L) 23 Anion Gap (4.0 - 15.0 GAP calc) 7.0 BUN (7 - 18 MG/DL) 11 Creatinine (0.55 - 1.30 MG/DL) 0.68 Glucose (70 - 110 MG/DL) 75 Calcium (8.5 - 10.1 MG/DL) 8.8 Specimen Appearance (1 NORMAL Index/DL) 1 NEAL L <2 MG Specimen Hemolysis (1 NORMAL Index/DL) 2 TRACE 10-25 MG Hematology WBC (4.1 - 12.1 K/mm3) 8.6 RBC (3.8 - 5.5 M/mm3) 4.13 Hgb (10.6 - 15.8 G/DL) 13.0 Hct (31.8 - 47.4 %) 37.6 MCV (80.1 - 101.1 fL) 91.0 MCH (25.3 - 35.3 pg) 31.5 MCHC (32.7 - 35.1 G/DL) 34.6 RDW (12.2 - 16.4 %) 12.0 L Plt Count (155 - 337 K/mm3) 210 MPV (6.8 - 11.2 fL) 11.6 H Miscellaneous Maternal Serum HCG (0 - 3 mi-IU/ML) 67515 H Urines Urine Color (YELLOW DESCRIPT) STRAW Urine Appearance (CLEAR DESCRIPT) CLEAR Urine pH (4.6 - 8.0 pH UNITS) 6.0 Ur Specific [place] (1.001 - 1.035 SG) 1.006 Urine Protein (<30 (1+) mg/dL) NEGATIVE (0) Urine Glucose (UA) ((NEG) 0 mg/dL) NEGATIVE (0) Urine Ketones ((NEG) 0 mg/dL) TRACE Urine Blood ((NEG) 0 mg/DL) NEGATIVE (0) Urine Nitrite (NEG SCREEN) NEGATIVE (0) Urine Bilirubin ((NEG) 0 mg/dL) NEGATIVE (0) Urine Urobilinogen (<2.0 (1+) mg/dL) NORMAL (0) Ur Leukocyte Esterase ((NEG) 0 Leuk/mcL) NEGATI VE (0) Urine RBC (0 - 3 #RBC/HPF) 0-3 Urine WBC (0 - 3 #WBC/HPF) 0-3 Ur Squamous Epith Cells (NONE - SQepi /HPF) RAR E >0 Recent Impressions: ULTRASOUND - US PREG UT TRANSVAGINAL 1841 Report Impression - Status: SIGNED Entered: 01/21/20202006 Impression: 1. Single intrauterine gestation with a gestatio nal age of 10 weeks and 2 days. Please see above. Impression By: [email or web address] - Tito Asencio MD Re-Evaluation MDM Free Text MDM Notes Free Text MDM Notes 2014: Patient appears well. Patient no distress. Discussed diagnostic results with patient. Patient has follow-up appointment scheduled with Dr. Puente on Thursday. Patient given strict return precautio ns. Patient agrees with plan. Patient Discharge Departure Vital Signs/Condition Condition Stable Clinical Impression Clinical Impression Primary Impression: Vaginal bleeding during preg zofia Disposition Decision Discharge )( Discharged to Home Yes )( Time 2013 )( Date 01/21/20 Discharge/Care Plan Counseled Regarding Diagnosi s, Lab results, Imaging studies, Need for follow-up, When to return to ED Discharge Note I have spoken with the patie nt and/or caregivers. I have explained the patient's condition, diagnoses and fantasma atment plan based on the information available to me at this time. I have answered the patient's and/ or caregiver's questions and addressed any concerns. The patient and/or careg nae have as good an understanding of the patient 's diagnosis, condition and treatment plan as can be expected at this point. The vital signs have bee n stable. The patient's condition is stable and appr opriate for discharge from the emergency department. The patient will pursue further outpatient evalu ation with the primary care physician or other designated or consulting phys ician as outlined in the discharge instructions. The patient and/or caregivers are agreeable to this plan of care and follow-up instructions have been exp lained in detail. The patient and/or caregivers have received these instructio ns in written format and have expressed an understanding of the discharge inst ructions. The patient and/or caregivers are aware that any significant change in condition or worsening of symptoms should prompt an immediate return to [facility] or the closest emergency department or a call to 911. Electronically Signed by Asa Carvalho NP on 0 01/21/20 at 2033 RPT #:[id number] END OF REPORT 2020-01-21 18:11:00-00:00 [facility] ([facility]) EMERGENCY PROVIDER REPORT REPORT#:[id number] REPORT STATUS: Signed DATE:01/21/20 TIME: 1810 PATIENT: AMANDA FRENCH UNIT #: [id number] ROOM/BED: AGE: 34 SEX: F PCP PHYS: No Primary or Family P hysician SERVICE AUTHOR: Milly Portillo * ALL edits or amendments must be made on the nap- Naturally Attached Parents/computer document * Milly Portillo 01/21/201810: HPI- Female General Confirmed Patient Yes Patient Type New patient Assumed Care at Time 1828 Date 01/21/20 Presentation Chief Complaint Abdominal pain, Pelvic pain, Vag inal bleeding Hx Obtained From Patient )( Sudden in Onset? No Onset Occurred Today Context of Onset Spontaneous Caused by No trauma by history Location Abdomen diffuse Quality Cramping Radiation Back. Severity: Onset Mild Severity: Current Mild Associated with Denies: Chills, Constipation, Fever, Nausea, Silas h, UTI symptoms, Vomiting. Context /Sexual Hx Last Menstrual Period 11/09/20 3 Para 2 Free Text HPI Notes Free Text HPI Notes Patient is a 34-year-old female who presents to the ER with complaint of back pain, abdominal pain, light vaginal bleeding that started today. Patient LMP , and states she has not been seen for h er current . Patient states that she has diffuse pelvic cramping and sharp pain to her left lower quadrant. Patient has vaginal bleeding that she describes as spotting and not saturating through her pad. Denies any headache, dizziness, weakness chest pain , shortness of breath, nause a, vomiting, diarrhea,, dysuria, rashes or lesions. Risk- Female Risk Stratification Ectopic Risk factors reviewed Review of Systems ROS Statements All systems rev neg except as marked. Focused Review of Systems Constitutional Denies: Chills, Fever. GI Reports: Abdominal pain. Denies: Constipation, D iarrhea, Nausea, Vomiting. Female Reports: Pelvic pain, Pregna nt, Vaginal bleeding - abnl. Denies: Dysuria, Flank pain, Hematuria. Musculoskeletal Reports: Back pain. Denies: Extremity pain, Extr emity swelling. Skin Denies: Rash, Swelling. Neurologic Denies: Dizziness, Generalized weakness, Headach e. Additional Review of Systems Respiratory Denies: Shortness of breath. Cardiovascular Denies: Chest pain. Past Medical History - Adult Stated Complaint I AM ALMOST 11 WKS AND I AM SPOTTIN Allergies Coded Allergies: No Known Allergies (12/07/13) Home Medications Reported Medications AMPHETAMINE/DEXTROAMPHETAMINE SALTS (ADDERALL) 2 0 MG PO TID clonazePAM (KlonoPIN) 1 MG PO TID MIRTAZAPINE (REMERON) 45 MG PO BEDTIME PNV/FE FUM/FA ( MULTIVITAMIN) 1 TAB PO D AILY ESCITALOPRAM (LEXAPRO) 20 MG PO DAILY Review of Nursing Notes Not reviewed nurse notes Additional Medical History bipolar, adhd Additional Surgical History NONE Alcohol Use Alcohol use Drug Use Denies recreational drugs Smoking status for patients 13 years old or olde r: Unknown,if ever smoked Physical Exam Vital Signs Vital Signs First Documented: Result Date Time Pulse Ox 97 1653 B/P 135/66 1653 B/P Mean 89 1653 Temp 37.0 1653 Pulse 99 1653 Resp 1653 Last Documented: Result Date Time Pulse Ox 100 2024 B/P 142/81 2024 B/P Mean 101 2024 Temp 37.0 2024 Pulse 86 2024 Resp 2024 Review of Vital Signs Reviewed Focused PE General/Const General/Const Awake, Alert, No acute distress, Well appearing, Well hydrated Resp/Chest Respiratory/Chest Breath sounds NL, Breath soun ds = bilat Cardiovascular Cardiovascular Heart rate NL, Regular rhythm Abdomen/GI Abdomen/GI Atraumatic, Soft, Non-tender, McBurn ey's non-tender, No guarding, No rebound, BS normoactive, No distention MS Back Back Atraumatic, Inspection NL, Full range of m otion, Painless range of motion, Non-tender, No CVA tenderness Skin Skin Atraumatic, Color NL, No rash, War m, Dry, Intact, Turgor NL, No swelling Genitourinary General Exam deferred Additional PE MS Head Head Atraumatic, Normocephalic Eyes Eyes Atraumatic, PERRL, EOMI, Conjunctiva NL, E yelids NL Ears/Nose/Throat Ears/Nose/Throat Atraumatic, Airway patent, Muc ous membranes moist MS Neck Neck Atraumatic, Supple Neurologic Neurologic Oriented X3, Speech NL, No motor def icits, No sensory deficits Psychiatric Psychiatric Affect NL, Mood NL Interpretation Diagnostics Lab Results Interpretation Lab Imaging Statement Laboratory radiographic studies reviewed and con sidered in the medical decision-making. Point of Care Testing Pulse Oximetry Pulse Ox % 97 On: Room air Interpretation Interpreted by me, Pulse oximetr y normal Time 1832 Re-Evaluation MDM ED Course Medication(s) Ordered Medication(s) Ordered: Central Nervous System Agents Sig/Fidel Start time Last Medication Dose Route Stop Time Status Admin Acetaminophen 1,000 MG X1ED STA 1809 DC PO 1810 Patient Discharge Departure Vital Signs/Condition Vital Signs First Documented: Result Date Time Pulse Ox 97 1654 B/P 135/66 1653 B/P Mean 89 1653 Temp 37.0 1653 Pulse 99 1653 Resp 1653 Last Documented: Result Date Time Pulse Ox 100 2024 B/P 142/81 2024 B/P Mean 101 2024 Temp 37.0 2024 Pulse 86 2024 Resp 2024 All vital signs available at the time of this en try have been reviewed. Asa Carvalho 01/21/20 2013: Interpretation Diagnostics Lab Results Interpretation Results Laboratory Tests 01/21/20 1800: [Embedded Image Not Available] Laboratory Tests: 1800 1749 Chemistry Sodium (133 - 144 mmol/L) 133.0 Potassium (3.5 - 5.1 mmol/L) 3.7 Chloride (95 - 105 mmol/L) 103 Carbon Dioxide (21 - 32 mmol/L) 23 Anion Gap (4.0 - 15.0 GAP calc) 7.0 BUN (7 - 18 MG/DL) 11 Creatinine (0.55 - 1.30 MG/DL) 0.68 Glucose (70 - 110 MG/DL) 75 Calcium (8.5 - 10.1 MG/DL) 8.8 Specimen Appearance (1 NORMAL Index/DL) 1 NEAL L <2 MG Specimen Hemolysis (1 NORMAL Index/DL) 2 TRACE 10-25 MG Hematology WBC (4.1 - 12.1 K/mm3) 8.6 RBC (3.8 - 5.5 M/mm3) 4.13 Hgb (10.6 - 15.8 G/DL) 13.0 Hct (31.8 - 47.4 %) 37.6 MCV (80.1 - 101.1 fL) 91.0 MCH (25.3 - 35.3 pg) 31.5 MCHC (32.7 - 35.1 G/DL) 34.6 RDW (12.2 - 16.4 %) 12.0 L Plt Count (155 - 337 K/mm3) 210 MPV (6.8 - 11.2 fL) 11.6 H Miscellaneous Maternal Serum HCG (0 - 3 mi-IU/ML) 32432 H Urines Urine Color (YELLOW DESCRIPT) STRAW Urine Appearance (CLEAR DESCRIPT) CLEAR Urine pH (4.6 - 8.0 pH UNITS) 6.0 Ur Specific [place] (1.001 - 1.035 SG) 1.006 Urine Protein (<30 (1+) mg/dL) NEGATIVE (0) Urine Glucose (UA) ((NEG) 0 mg/dL) NEGATIVE (0) Urine Ketones ((NEG) 0 mg/dL) TRACE Urine Blood ((NEG) 0 mg/DL) NEGATIVE (0) Urine Nitrite (NEG SCREEN) NEGATIVE (0) Urine Bilirubin ((NEG) 0 mg/dL) NEGATIVE (0) Urine Urobilinogen (<2.0 (1+) mg/dL) NORMAL (0) Ur Leukocyte Esterase ((NEG) 0 Leuk/mcL) NEGATI VE (0) Urine RBC (0 - 3 #RBC/HPF) 0-3 Urine WBC (0 - 3 #WBC/HPF) 0-3 Ur Squamous Epith Cells (NONE - SQepi /HPF) RAR E >0 Recent Impressions: ULTRASOUND - US PREG UT TRANSVAGINAL 1841 Report Impression - Status: SIGNED Entered: 01/21/20202006 Impression: 1. Single intrauterine gestation with a gestatio nal age of 10 weeks and 2 days. Please see above. Impression By: [email or web address] - Tito Asencio MD Re-Evaluation MDM Free Text MDM Notes Free Text MDM Notes 2014: Patient appears well. Patient no distress. Discussed diagnostic results with patient. Patient has follow-up appointment scheduled with Dr. Puente on Thursday. Patient given strict return precautio ns. Patient agrees with plan. Patient Discharge Departure Vital Signs/Condition Condition Stable Clinical Impression Clinical Impression Primary Impression: Vaginal bleeding during preg zofia Disposition Decision Discharge )( Discharged to Home Yes )( Time 2013 )( Date 01/21/20 Discharge/Care Plan Counseled Regarding Diagnosi s, Lab results, Imaging studies, Need for follow-up, When to return to ED Discharge Note I have spoken with the patie nt and/or caregivers. I have explained the patient's condition, diagnoses and fantasma atment plan based on the information available to me at this time. I have answered the patient's and/ or caregiver's questions and addressed any concerns. The patient and/or careg nae have as good an understanding of the patient 's diagnosis, condition and treatment plan as can be expected at this point. The vital signs have bee n stable. The patient's condition is stable and appr opriate for discharge from the emergency department. The patient will pursue further outpatient evalu ation with the primary care physician or other designated or consulting phys ician as outlined in the discharge instructions. The patient and/or caregivers are agreeable to this plan of care and follow-up instructions have been exp lained in detail. The patient and/or caregivers have received these instructio ns in written format and have expressed an understanding of the discharge inst ructions. The patient and/or caregivers are aware that any significant change in condition or worsening of symptoms should prompt an immediate return to [facility] or the closest emergency department or a call to 911. Gregory Lee 01/21/202058: HPI- Female General Initial Greet Date/Time 01/21/20 1702 Patient Discharge Departure Supervising Physician Note MidLv Saw Pt Alone I have reviewed the PA/GREEN BUILDING ARCHITECT's note and plan of car e. I was available for consultation as needed at al l times during the patient's visit in the emergency department. Electronically Signed by Asa Carvalho NP on 0 01/21/20 at 2032 Electronically Signed by Gregory Lee MD on 12/25 08/12 at 2058 RPT #:[id number] END OF REPORT 2020-01-21 18:11:00-00:00 [facility] ([facility]) EMERGENCY PROVIDER REPORT REPORT#:[id number] REPORT STATUS: Signed DATE:01/21/20 TIME: 1810 PATIENT: AMANDA FRENCH UNIT #: [id number] ROOM/BED: AGE: 34 SEX: F PCP PHYS: No Primary or Family Ph ysician SERVICE AUTHOR: Milly Portillo * ALL edits or amendments must be made on the nap- Naturally Attached Parents/[employer] document * Milly Portillo 01/21/201810: HPI- Female General Confirmed Patient Yes Patient Type New patient Initial Greet Date/Time 01/21/201701 Assumed Care at Time 1827 Date 01/21/20 Presentation Chief Complaint Abdominal pain, Pelvic pain, Vag inal bleeding Hx Obtained From Patient )( Sudden in Onset? No Onset Occurred Today Context of Onset Spontaneous Caused by No trauma by history Location Abdomen diffuse Quality Cramping Radiation Back. Severity: Onset Mild Severity: Current Mild Associated with Denies: Chills, Constipation, Fever, Nausea, Silas h, UTI symptoms, Vomiting. Context /Sexual Hx Last Menstrual Period 11/09/20 3 Para 2 Free Text HPI Notes Free Text HPI Notes Patient is a 34-year-old female who presents to the ER with complaint of back pain, abdominal pain, light vaginal bleeding that started today. Patient LMP , and states she has not been seen for h er current . Patient states that she has diffuse pelvic cramping and sharp pain to her left lower quadrant. Patient has vaginal bleeding that she describes as spotting and not saturating through her pad. Denies any headache, dizziness, weakness chest pain , shortness of breath, nause a, vomiting, diarrhea,, dysuria, rashes or lesions. Risk- Female Risk Stratification Ectopic Risk factors reviewed Review of Systems ROS Statements All systems rev neg except as marked. Focused Review of Systems Constitutional Denies: Chills, Fever. GI Reports: Abdominal pain. Denies: Constipation, D iarrhea, Nausea, Vomiting. Female Reports: Pelvic pain, Pregna nt, Vaginal bleeding - abnl. Denies: Dysuria, Flank pain, Hematuria. Musculoskeletal Reports: Back pain. Denies: Extremity pain, Extr emity swelling. Skin Denies: Rash, Swelling. Neurologic Denies: Dizziness, Generalized weakness, Headach e. Additional Review of Systems Respiratory Denies: Shortness of breath. Cardiovascular Denies: Chest pain. Past Medical History - Adult Stated Complaint I AM ALMOST 11 WKS AND I AM SPOTTIN Allergies Coded Allergies: No Known Allergies (12/07/13) Home Medications Reported Medications AMPHETAMINE/DEXTROAMPHETAMINE SALTS (ADDERALL) 2 0 MG PO TID clonazePAM (KlonoPIN) 1 MG PO TID MIRTAZAPINE (REMERON) 45 MG PO BEDTIME PNV/FE FUM/FA ( MULTIVITAMIN) 1 TAB PO D AILY ESCITALOPRAM (LEXAPRO) 20 MG PO DAILY Review of Nursing Notes Not reviewed nurse notes Additional Medical History bipolar, adhd Additional Surgical History NONE Alcohol Use Alcohol use Drug Use Denies recreational drugs Smoking status for patients 13 years old or olde r: Unknown,if ever smoked Physical Exam Vital Signs Review of Vital Signs Reviewed Focused PE General/Const General/Const Awake, Alert, No acute distress, Well appearing, Well hydrated Resp/Chest Respiratory/Chest Breath sounds NL, Breath soun ds = bilat Cardiovascular Cardiovascular Heart rate NL, Regular rhythm Abdomen/GI Abdomen/GI Atraumatic, Soft, Non-tender, McBurn ey's non-tender, No guarding, No rebound, BS normoactive, No distention MS Back Back Atraumatic, Inspection NL, Full range of m otion, Painless range of motion, Non-tender, No CVA tenderness Skin Skin Atraumatic, Color NL, No rash, War m, Dry, Intact, Turgor NL, No swelling Genitourinary General Exam deferred Additional PE MS Head Head Atraumatic, Normocephalic Eyes Eyes Atraumatic, PERRL, EOMI, Conjunctiva NL, E yelids NL Ears/Nose/Throat Ears/Nose/Throat Atraumatic, Airway patent, Muc ous membranes moist MS Neck Neck Atraumatic, Supple Neurologic Neurologic Oriented X3, Speech NL, No motor def icits, No sensory deficits Psychiatric Psychiatric Affect NL, Mood NL Interpretation Diagnostics Lab Results Interpretation Lab Imaging Statement Laboratory radiographic studies reviewed and con sidered in the medical decision-making. Point of Care Testing Pulse Oximetry Pulse Ox % 97 On: Room air Interpretation Interpreted by me, Pulse oximetr y normal Time 1832 Re-Evaluation MDM ED Course Medication(s) Ordered Medication(s) Ordered: Central Nervous System Agents Sig/Fidel Start time Last Medication Dose Route Stop Time Status Admin Acetaminophen 1,000 MG X1ED STA 1809 DC PO 1810 Asa Carvalho 01/21/20 2013: Physical Exam Vital Signs Vital Signs First Documented: Result Date Time Pulse Ox 97 1654 B/P 135/66 165 B/P Mean 89 1653 Temp 98.6 1653 Pulse 99 165 Resp 18 1653 Last Documented: Result Date Time Pulse Ox 100 2024 B/P 142/81 2024 B/P Mean 101 2024 Temp 98.6 2024 Pulse 86 2024 Resp 18 2024 Interpretation Diagnostics Lab Results Interpretation Results Laboratory Tests 01/21/20 1800: [Embedded Image Not Available] Laboratory Tests: 1800 1749 Chemistry Sodium (133 - 144 mmol/L) 133.0 Potassium (3.5 - 5.1 mmol/L) 3.7 Chloride (95 - 105 mmol/L) 103 Carbon Dioxide (21 - 32 mmol/L) 23 Anion Gap (4.0 - 15.0 GAP calc) 7.0 BUN (7 - 18 MG/DL) 11 Creatinine (0.55 - 1.30 MG/DL) 0.68 Glucose (70 - 110 MG/DL) 75 Calcium (8.5 - 10.1 MG/DL) 8.8 Specimen Appearance (1 NORMAL Index/DL) 1 NEAL L <2 MG Specimen Hemolysis (1 NORMAL Index/DL) 2 TRACE 10-25 MG Hematology WBC (4.1 - 12.1 K/mm3) 8.6 RBC (3.8 - 5.5 M/mm3) 4.13 Hgb (10.6 - 15.8 G/DL) 13.0 Hct (31.8 - 47.4 %) 37.6 MCV (80.1 - 101.1 fL) 91.0 MCH (25.3 - 35.3 pg) 31.5 MCHC (32.7 - 35.1 G/DL) 34.6 RDW (12.2 - 16.4 %) 12.0 L Plt Count (155 - 337 K/mm3) 210 MPV (6.8 - 11.2 fL) 11.6 H Miscellaneous Maternal Serum HCG (0 - 3 mi-IU/ML) 01866 H Urines Urine Color (YELLOW DESCRIPT) STRAW Urine Appearance (CLEAR DESCRIPT) CLEAR Urine pH (4.6 - 8.0 pH UNITS) 6.0 Ur Specific [place] (1.001 - 1.035 SG) 1.006 Urine Protein (<30 (1+) mg/dL) NEGATIVE (0) Urine Glucose (UA) ((NEG) 0 mg/dL) NEGATIVE (0 ) Urine Ketones ((NEG) 0 mg/dL) TRACE Urine Blood ((NEG) 0 mg/DL) NEGATIVE (0) Urine Nitrite (NEG SCREEN) NEGATIVE (0) Urine Bilirubin ((NEG) 0 mg/dL) NEGATIVE (0) Urine Urobilinogen (<2.0 (1+) mg/dL) NORMAL (0) Ur Leukocyte Esterase ((NEG) 0 Leuk/mcL) NEGATI VE (0) Urine RBC (0 - 3 #RBC/HPF) 0-3 Urine WBC (0 - 3 #WBC/HPF) 0-3 Ur Squamous Epith Cells (NONE - SQepi /HPF) RAR E >0 Recent Impressions: ULTRASOUND - US PREG UT TRANSVAGINAL 1841 Report Impression - Status: SIGNED Entered: 01/21/20202006 Impression: 1. Single intrauterine gestation with a gestatio nal age of 10 weeks and 2 days. Please see above. Impression By: [email or web address] - Tito Asencio MD Re-Evaluation MDM Free Text MDM Notes Free Text MDM Notes 2014: Patient appears well. Patient no distress. Discussed diagnostic results with patient. Patient has follow-up appointment scheduled with Dr. Puente on Thursday. Patient given strict return precautio ns. Patient agrees with plan. Patient Discharge Departure Vital Signs/Condition Vital Signs First Documented: Result Date Time Pulse Ox 97 1653 B/P 135/66 1653 B/P Mean 89 1653 Temp 98.6 1653 Pulse 99 1653 Resp 18 1653 Last Documented: Result Date Time Pulse Ox 100 2024 B/P 142/81 2024 B/P Mean 101 2024 Temp 98.6 2024 Pulse 86 2024 Resp 18 2024 All vital signs available at the time of this en try have been reviewed. Condition Stable Clinical Impression Clinical Impression Primary Impression: Vaginal bleeding during preg zofia Disposition Decision Discharge )( Discharged to Home Yes )( Time 2013 )( Date 01/21/20 Discharge/Care Plan Counseled Regarding Diagnosi s, Lab results, Imaging studies, Need for follow-up, When to return to ED Discharge Note I have spoken with the patie nt and/or caregivers. I have explained the patient's condition, diagnoses and fantasma atment plan based on the information available to me at this time. I have answered the patient's and/ or caregiver's questions and addressed any concerns. The patient and/or careg nae have as good an understanding of the patient 's diagnosis, condition and treatment plan as can be expected at this point. The vital signs have bee n stable. The patient's condition is stable and appr opriate for discharge from the emergency department. The patient will pursue further outpatient evalu ation with the primary care physician or other designated or consulting phys ician as outlined in the discharge instructions. The patient and/or caregivers are agreeable to this plan of care and follow-up instructions have been exp lained in detail. The patient and/or caregivers have received these instructio ns in written format and have expressed an understanding of the discharge inst ructions. The patient and/or caregivers are aware that any significant change in condition or worsening of symptoms should prompt an immediate return to [facility] or the closest emergency department or a call to 911. Gregory Lee 01/21/202058: Patient Discharge Departure Supervising Physician Note MidLv Saw Pt Alone I have reviewed the PA/GREEN BUILDING ARCHITECT's note and plan of car e. I was available for consultation as needed at al l times during the patient's visit in the emergency department. Electronically Signed by Asa Carvalho NP on 0 01/21/20 at 2033 Electronically Signed by Gregory Lee MD on 12/25 08/12 at 205 at 1310 RPT #:[id number] END OF REPORT 2019-09-03 22:11:00-00:00 [facility] ([facility]) EMERGENCY PROVIDER REPORT REPORT#:[id number] REPORT STATUS: Signed DATE:09/03/19 TIME: 2210 PATIENT: AMANDA FRENCH UNIT #: [id number] ROOM/BED: AGE: 34 SEX: F PCP PHYS: No Primary or Family Ph ysician SERVICE AUTHOR: Asa Carvalho NP * ALL edits or amendments must be made on the nap- Naturally Attached Parents/computer document * HPI-Chest Pain Under 40 General Confirmed Patient Yes Patient Type New patient Initial Greet Date/Time 09/03/192200 Presentation Chief Complaint Chest pain, insomnia Hx Obtained From Patient Sudden in Onset? No Onset Occurred Days ago (2) Symptom Duration Since onset Progression since Onset Unchanged Location Substernal Quality Painful Radiation Does not radiate. )( Migration/Movement None Severity: Current Pain level 4 out of 10 Associated with Reports: Insomnia. Denies: Fever. 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 Immunization Status General Unknown Recent Healthcare No recent doctor visit, No rec ent hospitalization Similar Sx Previous No /Sexual Hx Status Denies Free Text HPI Notes Free Text HPI Notes Patient is a 34-year-old [facility] chief complaint of chest pain and insomnia for 2 days. Patient reports history of anxiety, bipolar, ADHD. Patient states s he takes Adderall and Klonopin but has not been taking her medications as prescribed. P atient reports having similar symptoms in the past and she went to the emergency room. Patient states she did not state results because she was tired of waiti ng. Patient denies nausea and vomiting. Patient denies shortness of breath. Young treviño denies abdominal pain and . Patient denies injury. At time of evaluation patient states she does not want needles or blood tests. Risk-Chest Pain Under 40 Risk Stratification )( Coronary Artery Disease Risk factors reviewed )( Pulmonary Embolism Risk factors reviewed )( AMI-Aspirin Aspirin Last 24 Hrs None )( HEART for MACE )( HEART for MACE Response Value History Low index of suspicion 0 ECG Interpretation Normal ECG 0 Age Age under 45 0 Risk Factors for CAD No risk factors known 0 Troponin < or = to NL troponin 0 Total 0 HEART Score for MACE 0-3 (low risk 0.9%-1.7%) HEART Score Reference Resource material only. Click 'Cancel' butto n and information will not be inserted into or become part of the medical [address] Risk factors considered for determining a patien t's HEART Score include: hypercholesterolemia (hyperlipidemia), hypertens ion, diabetes mellitus, cigarette smoking, positive family history and o besity. Major Adverse Cardiac Events (MACE) include: acu te myocardial infarction, ischaemic stroke, coronary arterial occlusion an d . References: Morris COKER, Finn BAUTISTA, et al. Chest pain in the emergency room: value of the HEART score. Net Heart J. 2008 Ju n:16(6):191-6. PubMed PMID: [id number]; PubMed Central PMCID: [id number]. Finn BAUTISTA, Morris COKER, et al. A prospective validation of the HEART score for chest pain patients at the emergen cy department. Int J Cardiol. 2013 Aug 3:168(3):2153 -8. Doi: 10.1016/j.ijcard.2013..255. E pub 2012Jan 27. PubMed PMID: 81292904. Review of Systems ROS Statements All systems rev neg except as marked. Focused Review of Systems Constitutional Denies: Chills, Fatigue, Fever. Respiratory Denies: Cough, non-productive, Cough, productive , Shortness of breath. Cardiovascular Reports: Chest pain. Denies: Syncope. GI Denies: Abdominal pain, Constipation, Diarrhea, Nausea, Vomiting. Musculoskeletal Denies: Back pain, Myalgia, Neck pain. Skin Denies: Rash. Neurologic Denies: Bladder dysfunction, Bowel dysfunction, Headache, Syncope. Past Medical History - Adult Stated Complaint CHEST PAIN,NOT SLEEPING Allergies Coded Allergies: No Known Allergies (12/07/13) Home Medications Reported Medications AMPHETAMINE/DEXTROAMPHETAMINE SALTS (ADDERALL) 2 0 MG PO TID clonazePAM (KlonoPIN) 1 MG PO TID MIRTAZAPINE (REMERON) 45 MG PO BEDTIME PNV/FE FUM/FA ( MULTIVITAMIN) 1 TAB PO D AILY ESCITALOPRAM (LEXAPRO) 20 MG PO DAILY Review of Nursing Notes Unavailable at this time Additional Medical History bipolar, adhd Additional Surgical History NONE Alcohol Use Alcohol use Drug Use Denies recreational drugs Smoking status for patients 13 years old or olde r: Current every day smoker Physical Exam Vital Signs Vital Signs First Documented: Result Date Time Pulse Ox 96 09/03 2201 B/P 110/59 09/03 2201 B/P Mean 76 09/03 2201 Temp 36.8 09/03 2201 Pulse 93 09/03 2201 Resp 15 09/03 2201 Last Documented: Result Date Time Pulse Ox 96 09/03 2201 B/P 110/59 09/03 2201 B/P Mean 76 09/03 2201 Temp 36.8 09/03 2201 Pulse 93 09/03 2201 Resp 15 09/03 2201 Review of Vital Signs Reviewed Focused PE General/Const General/Const Awake, Alert, No acute di stress, Well appearing, Well developed , Well hydrated, Well nourished, Cooperative, No t toxic appearing Eyes Eyes Atraumatic, PERRL, EOMI, No nystagmus MS Neck Neck Atraumatic, Supple, No meningismus Resp/Chest Respiratory/Chest Atraumatic, Breath sounds NL, Breath sounds = bilat, No respiratory distress Cardiovascular Cardiovascular Heart rate NL, Regular r hythm, Heart sounds NL, Cap refill not delayed, Peripheral circulation NL Abdomen/GI Abdomen/GI Atraumatic, Soft, Non-tender MS Back Back Atraumatic, Inspection NL, Full range of m otion MS Lower Extrem Lower Ext/Pelvis/MS Atraumatic, Inspection NL, Full range of motion Skin Skin Atraumatic, Color NL, No rash, War m, Dry, Intact, Turgor NL, No swelling Neurologic Neurologic Oriented X3, Speech NL, No motor def icits, No sensory deficits, Cerebellar NL, Memory NL, Gait NL Interpretation Diagnostics Lab Results Interpretation Lab Imaging Statement Laboratory radiographic studies reviewed and con sidered in the medical decision-making. ECG #1 Interpretation ECG Documented in MUSE Yes Date 09/03/19 Time 2218 Interpreted by ED physician NL ECG Interpretation Normal rate, Normal sinus rhythm, No acute ischemic changes, No STEMI, Adequate tracing Rate 90 Re-Evaluation MDM Free Text MDM Notes Free Text MDM Notes Patient declines to have any testing performed o ther than EKG. Discussed EKG results with patient. Jeremias dey will be discharged and referred to cardiology for further evaluation of her chest pain. Return pre cautions given. Patient Discharge Departure Vital Signs/Condition Vital Signs First Documented: Result Date Time Pulse Ox 96 09/03 2201 B/P 110/59 09/03 2201 B/P Mean 76 09/03 2201 Temp 36.8 09/03 2201 Pulse 93 09/03 2201 Resp 15 09/03 2201 Last Documented: Result Date Time Pulse Ox 96 09/03 2201 B/P 110/59 09/03 2201 B/P Mean 76 09/03 2201 Temp 36.8 09/03 2201 Pulse 93 09/03 2201 Resp 15 09/03 2201 All vital signs available at the time of this en try have been reviewed. Condition Stable Clinical Impression Clinical Impression Primary Impression: Chest pain Secondary Impressions: Insomnia Disposition Decision Discharge )( Discharged to Home Yes )( Time 2228 )( Date 09/03/19 Discharge/Care Plan Counseled Regarding Diagnosis, Imaging studies, Need for follow-up, When to return to ED Electronically Signed by Asa Carvalho NP on at 2259 RPT #:[id number] END OF REPORT 2019-09-03 22:11:00-00:00 [facility] ([facility]) EMERGENCY PROVIDER REPORT REPORT#:[id number] REPORT STATUS: Signed DATE:09/03/19 TIME: 2210 PATIENT: AMANDA FRENCH UNIT #: [id number] ROOM/BED: AGE: 34 SEX: F PCP PHYS: No Primary or Family Ph ysician SERVICE AUTHOR: Asa Carvalho NP * ALL edits or amendments must be made on the el [employer]/computer document * Asa Carvalho 09/03/19 2211: HPI-Chest Pain Under 40 General Confirmed Patient Yes Patient Type New patient Presentation Chief Complaint Chest pain, insomnia Hx Obtained From Patient Sudden in Onset? No Onset Occurred Days ago (2) Symptom Duration Since onset Progression since Onset Unchanged Location Substernal Quality Painful Radiation Does not radiate. )( Migration/Movement None Severity: Current Pain level 4 out of 10 Associated with Reports: Insomnia. Denies: Fever. 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 Immunization Status General Unknown Recent Healthcare No recent doctor visit, No rec ent hospitalization Similar Sx Previous No /Sexual Hx Status Denies Free Text HPI Notes Free Text HPI Notes Patient is a 34-year-old female comes to the [facility] with chief complaint of chest pain and insomnia for 2 days. Patient reports history of anxiety, bipolar, ADHD. Patient states s he takes Adderall and Klonopin but has not been taking her medications as prescribed. P yolanda reports having similar symptoms in the past and she went to the emergency room. Patient states she did not state results because she was tired of waiti ng. Patient denies nausea and vomiting. Patient denies shortness of breath. Young treviño denies abdominal pain and . Patient denies injury. At time of evaluation patient states she does not want needles or blood tests. Risk-Chest Pain Under 40 Risk Stratification )( Coronary Artery Disease Risk factors reviewed )( Pulmonary Embolism Risk factors reviewed )( AMI-Aspirin Aspirin Last 24 Hrs None )( HEART for MACE )( HEART for MACE Response Value History Low index of suspicion 0 ECG Interpretation Normal ECG 0 Age Age under 45 0 Risk Factors for CAD No risk factors known 0 Troponin < or = to NL troponin 0 Total 0 HEART Score for MACE 0-3 (low risk 0.9%-1.7%) HEART Score Reference Resource material only. Click 'Cancel' butto n and information will not be inserted into or become part of the medical [address] Risk factors considered for determining a patien t's HEART Score include: hypercholesterolemia (hyperlipidemia), hypertens ion, diabetes mellitus, cigarette smoking, positive family history and o besity. Major Adverse Cardiac Events (MACE) include: acu te myocardial infarction, ischaemic stroke, coronary arterial occlusion an d . References: Morris AJ, Finn BE, et al. Chest pain in the emergency room: value of the HEART score. Net Heart J. 2008 Ju n:16(6):191-6. PubMed PMID: [id number]; PubMed Central PMCID: [id number]. Finn BAUTISTA, Morris COKER, et al. A prospective validation of the HEART score for chest pain patients at the emergen cy department. Int J Cardiol. 2013 Aug 3:168(3):2153 -8. Doi: 10.1016/j.ijcard.2013.01.255. E pub 2012Jan 27. PubMed PMID: [id number]. Review of Systems ROS Statements All systems rev neg except as marked. Focused Review of Systems Constitutional Denies: Chills, Fatigue, Fever. Respiratory Denies: Cough, non-productive, Cough, productive , Shortness of breath. Cardiovascular Reports: Chest pain. Denies: Syncope. GI Denies: Abdominal pain, Constipation, Diarrhea, Nausea, Vomiting. Musculoskeletal Denies: Back pain, Myalgia, Neck pain. Skin Denies: Rash. Neurologic Denies: Bladder dysfunction, Bowel dysfunction, Headache, Syncope. Past Medical History - Adult Stated Complaint CHEST PAIN,NOT SLEEPING Allergies Coded Allergies: No Known Allergies (12/07/13) Home Medications Reported Medications AMPHETAMINE/DEXTROAMPHETAMINE SALTS (ADDERALL) 2 0 MG PO TID clonazePAM (KlonoPIN) 1 MG PO TID MIRTAZAPINE (REMERON) 45 MG PO BEDTIME PNV/FE FUM/FA ( MULTIVITAMIN) 1 TAB PO D AILY ESCITALOPRAM (LEXAPRO) 20 MG PO DAILY Review of Nursing Notes Unavailable at this time Additional Medical History bipolar, adhd Additional Surgical History NONE Alcohol Use Alcohol use Drug Use Denies recreational drugs Smoking status for patients 13 years old or olde r: Current every day smoker Physical Exam Vital Signs Vital Signs First Documented: Result Date Time Pulse Ox 96 09/03 2201 B/P 110/59 09/03 2201 B/P Mean 76 09/03 2201 Temp 98.2 09/03 2201 Pulse 93 09/03 2201 Resp 15 09/03 2201 Last Documented: Result Date Time Pulse Ox 96 09/03 2201 B/P 110/59 09/03 2201 B/P Mean 76 09/03 2201 Temp 98.2 09/03 2201 Pulse 93 09/03 2201 Resp 15 09/03 2201 Review of Vital Signs Reviewed Focused PE General/Const General/Const Awake, Alert, No acute di stress, Well appearing, Well developed , Well hydrated, Well nourished, Cooperative, No t toxic appearing Eyes Eyes Atraumatic, PERRL, EOMI, No nystagmus MS Neck Neck Atraumatic, Supple, No meningismus Resp/Chest Respiratory/Chest Atraumatic, Breath sounds NL, Breath sounds = bilat, No respiratory distress Cardiovascular Cardiovascular Heart rate NL, Regular r hythm, Heart sounds NL, Cap refill not delayed, Peripheral circulation NL Abdomen/GI Abdomen/GI Atraumatic, Soft, Non-tender MS Back Back Atraumatic, Inspection NL, Full range of m otion MS Lower Extrem Lower Ext/Pelvis/MS Atraumatic, Inspection NL, Full range of motion Skin Skin Atraumatic, Color NL, No rash, War m, Dry, Intact, Turgor NL, No swelling Neurologic Neurologic Oriented X3, Speech NL, No motor def icits, No sensory deficits, Cerebellar NL, Memory NL, Gait NL Interpretation Diagnostics Lab Results Interpretation Lab Imaging Statement Laboratory radiographic studies reviewed and co nsidered in the medical decision-making. ECG #1 Interpretation ECG Documented in MUSE Yes Date 09/03/19 Time 2218 Interpreted by ED physician NL ECG Interpretation Normal rate, Normal sinus rhythm, No acute ischemic changes, No STEMI, Adequate tracing Rate 90 Re-Evaluation MDM Free Text MDM Notes Free Text MDM Notes Patient declines to have any testing performed o ther than EKG. Discussed EKG results with patient. Jeremias dey will be discharged and referred to cardiology for further evaluation of her chest pain. Return pre cautions given. Patient Discharge Departure Vital Signs/Condition Vital Signs First Documented: Result Date Time Pulse Ox 96 09/03 2201 B/P 110/59 09/03 2201 B/P Mean 76 09/03 2201 Temp 98.2 09/03 2201 Pulse 93 09/03 2201 Resp 09/03 Last Documented: Result Date Time Pulse Ox 96 09/03 2201 B/P 110/59 09/03 2201 B/P Mean 76 09/03 2201 Temp 98.2 09/03 2201 Pulse 93 09/03 2201 Resp 15 09/03 2201 All vital signs available at the time of this en try have been reviewed. Condition Stable Clinical Impression Clinical Impression Primary Impression: Chest pain Secondary Impressions: Insomnia Disposition Decision Discharge )( Discharged to Home Yes )( Time 2228 )( Date 09/03/19 Discharge/Care Plan Counseled Regarding Diagnosis, Imaging studies, Need for follow-up, When to return to ED Juan Antonio Jimenes 09/04/19 0349: HPI-Chest Pain Under 40 General Initial Greet Date/Time 09/03/192200 Patient Discharge Departure Supervising Physician Note MidLv Saw Pt Alone I have reviewed the PA/GREEN BUILDING ARCHITECT's note and plan of car e. I was available for consultation as needed at al l times during the patient's visit in the emergency department. I agree with the clinical impression , plan and disposition. Electronically Signed by Asa Carvalho NP on 1 at 5151 Electronically Signed by Juan Antonio Jimenes DO on at 0344 RPT #:[id number] END OF REPORT 2019-08-15 23:31:00-00:00 [facility] ([facility]) EMERGENCY PROVIDER REPORT REPORT#:[id number] REPORT STATUS: Signed DATE:08/15/19 TIME: 2330 PATIENT: AMANDA FRENCH UNIT #: [id number] ROOM/BED: AGE: 34 SEX: F PCP PHYS: No Primary or Family P hysician SERVICE AUTHOR: Lorenzo Buck GREEN BUILDING ARCHITECT * ALL edits or amendments must be made on the nap- Naturally Attached Parents/computer document * Lorenzo Buck 08/15/19 2331: HPI-Abd Pain F Under 40 General Confirmed Patient Yes Patient Type New patient Provider in Triage Greet Note I have greeted and performed a focused rapid initial assessment of this patient. A comprehensive ED assessment and evaluation of the patient, analysis of all test results, and completion of the medical deci gabriel-making process will be conducted by additional ED providers. HPI Chief Complaint Abdominal pain All systems rev neg except as marked. PE General/Const No acute distress MSE Not Complete The medical screening exam i s not complete. Further evaluation and/or treatment is required. The patient will be re-directed to the emergency department. Presentation Chief Complaint Abdominal pain Risk-Abd Pain F Under 40 )( Ectopic Risk factors reviewed Review of Systems ROS Statements All systems rev neg except as marked. Past Medical History - Adult Stated Complaint R FLANK PAIN/CONSTIPATION Allergies Coded Allergies: No Known Allergies (12/07/13) Home Medications Reported Medications AMPHETAMINE/DEXTROAMPHETAMINE SALTS (ADDERALL) 2 0 MG PO TID clonazePAM (KlonoPIN) 1 MG PO TID MIRTAZAPINE (REMERON) 45 MG PO BEDTIME PNV/FE FUM/FA ( MULTIVITAMIN) 1 TAB PO D AILY ESCITALOPRAM (LEXAPRO) 20 MG PO DAILY Additional Medical History bipolar, adhd Additional Surgical History NONE Smoking status for patients 13 years old or olde r: Current every day smoker Physical Exam Vital Signs Vital Signs First Documented: Result Date Time Pulse Ox 98 08/15 2325 B/P 112/71 08/15 2325 B/P Mean 84 08/15 2325 O2 Delivery Room air 08/15 2325 Temp 98.3 08/15 2325 Pulse 96 08/15 2325 Resp 17 08/15 2325 Last Documented: Result Date Time Pulse Ox 98 08/16 0230 B/P 111/74 08/16 0230 B/P Mean 86 08/16 0230 O2 Delivery Room air 08/16 0230 Pulse 76 08/16 0230 Resp 16 08/16 023 Temp 98.3 08/15 2325 Interpretation Diagnostics Lab Results Interpretation Results Laboratory Tests 08/16/19 0138: [Embedded Image Not Available] Laboratory Tests: 08/16 0138 Chemistry Sodium (133 - 144 mmol/L) 137.0 Potassium (3.5 - 5.1 mmol/L) 3.7 Chloride (95 - 105 mmol/L) 104 Carbon Dioxide (21 - 32 mmol/L) 24 Anion Gap (4.0 - 15.0 GAP calc) 9.0 BUN (7 - 18 MG/DL) 7 Creatinine (0.55 - 1.30 MG/DL) 0.75 Glomerular Filtr Rate (>60 estGFR) 88 Glucose (70 - 110 MG/DL) 73 Calcium (8.5 - 10.1 MG/DL) 8.9 Total Bilirubin (0.00 - 1.00 MG/DL) 0.38 Direct Bilirubin (0.00 - 0.30 MG/DL) 0.12 Indirect Bilirubin (0.2 - 1.3 MG/DL) 0.26 AST (15 - 37 Unit/L) 17 ALT (12 - 78 Unit/L) 30 Total Alk Phosphatase (45 - 117 Unit/L) 45 Total Protein (6.4 - 8.2 G/DL) 7.1 Albumin (3.4 - 5.0 G/DL) 3.7 Albumin/Globulin Ratio (1.2 - 2.2 RATIO) 1.1 L Serum , Qual (NEG SCREEN) NEG Specimen Appearance (1 NORMAL Index/DL) 1 NORM AL <2 MG Specimen Hemolysis (1 NORMAL Index/DL) 1 NORMAL <10 MG Hematology WBC (4.1 - 12.1 K/mm3) 7.9 RBC (3.8 - 5.5 M/mm3) 4.01 Hgb (10.6 - 15.8 G/DL) 13.0 Hct (31.8 - 47.4 %) 36.9 MCV (80.1 - 101.1 fL) 92.0 MCH (25.3 - 35.3 pg) 32.4 MCHC (32.7 - 35.1 G/DL) 35.2 H RDW (12.2 - 16.4 %) 11.6 L Plt Count (155 - 337 K/mm3) 165 MPV (6.8 - 11.2 fL) 12.8 H Gran % (37.8 - 82.6 %) 45.4 Lymph % (Auto) (14.1 - 45.4 %) 42.5 Kidder % (Auto) (2.5 - 11.7 %) 6.3 Eos % (Auto) (0.0 - 6.2 %) 4.6 Baso % (Auto) (0.0 - 2.1 %) 0.9 Gran # (2.0 - 13.7 k/mm3) 3.59 Lymph # (Auto) (0.6 - 3.8 K/mm3) 3.35 Kidder # (Auto) (0.11 - 0.59 K/mm3) 0.50 Eos # (Auto) (0.0 - 0.4 K/mm3) 0.36 Baso # (Auto) (0.0 - 0.1 K/mm3) 0.07 Immature Gran % (0.0 - 2.0 %) 0.3 Nucleated RBC % (0.0 - 1.0 /100WBC%) 0.0 Nucleated RBCs # (0.0 - 0.05 K/mm3) 0.00 Toxicology Ethyl Alcohol (0 - 10 MG/DL) < 3 Patient Discharge Departure Vital Signs/Condition Vital Signs First Documented: Result Date Time Pulse Ox 98 08/15 2325 B/P 112/71 08/15 2325 B/P Mean 84 08/15 2325 O2 Delivery Room air 08/15 2325 Temp 98.3 08/15 2325 Pulse 96 08/15 2325 Resp 17 08/15 2325 Last Documented: Result Date Time Pulse Ox 98 08/160 B/P 111/74 08/16 230 B/P Mean 86 08/16 230 O2 Delivery Room air 08/16 230 Pulse 76 08/16 230 Resp 16 08/16 230 Temp 98.3 08/15 2325 All vital signs available at the time of this en try have been reviewed. Condition Stable Clinical Impression Clinical Impression Primary Impression: Constipation Secondary Impressions: H/O ETOH abuse Time of Impression 0205 Disposition Decision Discharge )( Discharged to Home Yes )( Time 021 )( Date 08/16/19 Discharge/Care Plan Counseled Regarding Diagnosi s, Lab results, Imaging studies, Need for follow-up, Smoking cessation, When to return to ED Discharge Note I have spoken with the patie nt and/or caregivers. I have explained the patient's condition, diagnoses and fantasma atment plan based on the information available to me at this time. I have answered the patient's and/ or caregiver's questions and addressed any concerns. The patient and/or careg nae have as good an understanding of the patient 's diagnosis, condition and treatment plan as can be expected at this point. The vital signs have bee n stable. The patient's condition is stable and appr opriate for discharge from the emergency department. The patient will pursue further outpatient evalu ation with the primary care physician or other designated or consulting phys ician as outlined in the discharge instructions. The patient and/or caregivers are agreeable to this plan of care and follow-up instructions have been exp lained in detail. The patient and/or caregivers have received these instructio ns in written format and have expressed an understanding of the discharge inst ructions. The patient and/or caregivers are aware that any significant change in condition or worsening of symptoms should prompt an immediate return to [facility] or the closest emergency department or a call to 911. Quality Measures Smoking Cessation Screened, tobacco user, Tobacc o cess intervention Tobacco Screening/Cessation 18 years or older, Tobacco user, Smoking cessation offered, Declined help Cristian Jones 08/16/197: HPI-Abd Pain F Under 40 General Initial Greet Date/Time 08/15/19 2330 Presentation Chief Complaint Abdominal pain Hx Obtained From Patient Sudden in Onset? No Onset Occurred Today Symptom Duration Since onset Progression since Onset Unchanged Caused by No trauma by history Location RUQ Quality Painful Radiation Does not radiate. Migration/Movement None Severity: Onset Moderate Severity: Current Moderate Associated with Denies: Diarrhea, Vomiting. Associated Other Pt denies other symptoms Exacerbated by Nothing Relieved by Nothing Free Text HPI Notes Free Text HPI Notes 34 y/o F w/ no significant P MH, presents to the ED with c/o RUQ abd pain today. Pt reports she lives in a [facility] house. Pt states she is concerned for liver damage from alcoholism. Pain is nonradiating. Pt denies V/D. Portions of this section were scribed by Daniella Mauricio on 08/16/19 at 0237 Risk-Abd Pain F Under 40 )( Ectopic Risk factors reviewed, No r isk factors Portions of this section were scribed by Daniella Mauricio on 08/16/19 at 0237 Review of Systems ROS Statements All systems rev neg except as marked. Focused Review of Systems Constitutional Denies: Chills, Fever. Respiratory Denies: Cough, productive, Shortness of breath. Cardiovascular Denies: Chest pain, Palpitations. GI Reports: Abdominal pain (RUQ). Denies: Diarrhea, Vomiting. Female Denies: Dysuria, Hematuria. Musculoskeletal Denies: Back pain, Extremity pain. Additional Review of Systems Eyes Denies: Blurred bilat, Discharge bilat. Ears/Nose/Throat Denies: Ear drainage bilat, Ear ringing bilat. Skin Denies: Abrasion, Erythema. Neurologic Denies: Change LOC, Headache. Portions of this section were scribed by Daniella Mauricio on 08/16/19 at 0237 Past Medical History - Adult Pt reports no significant: Family history Alcohol Use Alcohol use Drug Use Denies recreational drugs Portions of this section were scribed by Daniella Mauricio on 08/16/19 at 0237 Physical Exam Vital Signs Review of Vital Signs Reviewed Focused PE General/Const General/Const Awake, Alert, No acute distress Text/Dict Notes stigmata of cirrhosis Appearance/Presentation Negative: Icteric. MS Head Head Atraumatic, Normocephalic Eyes Eyes PERRL, EOMI, No nystagmus Ears/Nose/Throat Ears/Nose/Throat Airway patent, Mucous membrane s moist, Pharynx NL Resp/Chest Respiratory/Chest Breath sounds NL, Breath soun ds = bilat, No respiratory distress Cardiovascular Cardiovascular Heart rate NL, Regular rhythm, H eart sounds NL Abdomen/GI Abdomen/GI Soft, No guarding, No rebound Tenderness/Guarding/Rebound Tender RUQ. Bowel Sounds/Distention Distention mild. MS Back Back Inspection NL, Full range of motion, Painl ess range of motion, Non- tender Skin Skin Color NL, No rash, Warm, Dry, Intact Genitourinary General Exam deferred Neurologic Neurologic Oriented X3, Speech NL, No motor def icits, No sensory deficits Additional PE MS Neck Neck Supple, No meningismus, Full range of motion, No adenopathy, No swelling , Non-tender MS Upper Extrem Upper Extremity/MS Inspection NL, Full range of motion, No swelling, Non- tender MS Lower Extrem Lower Ext/Pelvis/MS Inspection NL, Full range o f motion, No swelling, Non- tender Psychiatric Psychiatric Affect NL, Mood NL Portions of this section were scribed by Daniella Mauricio on 08/16/19 at 0237 Interpretation Diagnostics Point of Care Testing Pulse Oximetry Pulse Ox % 97 On: Room air Interpretation Interpreted by fl, Pulse oximetr y normal Time 0120 Portions of this section were scribed by Daniella Mauricio on 08/16/19 at 0237 Re-Evaluation MDM )( Re-Evaluation/Progress #1 Text/Dict Note Pain well controlled in the ED. Reviewed labs w/ pt. Discussed plan to discharge pt home. Provided strict return precauti ons and at home care instructions. All questions and concerns addressed. The pt is talya galicia w/ the plan of care. Time of Re-Eval 0216 )( Re-Eval Status Improved ED Course Medication(s) Ordered Medication(s) Ordered: Gastrointestinal Drugs Sig/Fidel Start time Last Medication Dose Route Stop Time Status Admin Magnesium Citrate 300 ML X1ED STA 08/16 222 DC 08/16 PO 08/16 223 0235 Portions of this section were scribed by Daniella Mauricio on 08/16/19 at 0237 Patient Discharge Departure Supervising Physician Note Scribe Statement Daniella Mauricio, 08/16/19 0302, scribing for and in the presence of Cristian Jones. Signed By: Daniella Mauricio, 08/16/19 0302 Provider Scribed Statement I personally performed the s ervices described in this documentation and reviewed the documentation that was dictated to the scrib e(s) in my presence, and it accurately records my words and actions. Cristian Barros, 08/16/19 Portions of this section were scribed by Daniella Mauricio on 08/16/19 at 0237 Electronically Signed by Cristian Jones MD on at 0315 RPT #:[id number] END OF REPORT 2019-08-15 23:31:00-00:00 [facility] ([facility]) EMERGENCY PROVIDER REPORT REPORT#:[id number] REPORT STATUS: Signed DATE:08/15/19 TIME: 2330 PATIENT: AMANDA FRENCH UNIT #: [id number] ROOM/BED: AGE: 34 SEX: F PCP PHYS: No Primary or Family Ph ysician SERVICE AUTHOR: Lorenzo Buck GREEN BUILDING ARCHITECT * ALL edits or amendments must be made on the el [employer]/computer document * Lorenzo Buck 08/15/192330: HPI-Abd Pain F Under 40 General Confirmed Patient Yes Patient Type New patient Initial Greet Date/Time 08/15/19 233 Provider in Triage Greet Note I have greeted and performed a focused rapid initial assessment of this patient. A comprehensive ED assessment and evaluation of the patient, analysis of all test results, and completion of the medical deci gabriel-making process will be conducted by additional ED providers. HPI Chief Complaint Abdominal pain All systems rev neg except as marked. PE General/Const No acute distress MSE Not Complete The medical screening exam i s not complete. Further evaluation and/or treatment is required. The patient will be re-directed to the emergency department. Presentation Chief Complaint Abdominal pain Risk-Abd Pain F Under 40 )( Ectopic Risk factors reviewed Review of Systems ROS Statements All systems rev neg except as marked. Past Medical History - Adult Stated Complaint R FLANK PAIN/CONSTIPATION Allergies Coded Allergies: No Known Allergies (12/07/13) Home Medications Reported Medications AMPHETAMINE/DEXTROAMPHETAMINE SALTS (ADDERALL) 2 0 MG PO TID clonazePAM (KlonoPIN) 1 MG PO TID MIRTAZAPINE (REMERON) 45 MG PO BEDTIME PNV/FE FUM/FA ( MULTIVITAMIN) 1 TAB PO D AILY ESCITALOPRAM (LEXAPRO) 20 MG PO DAILY Additional Medical History bipolar, adhd Additional Surgical History NONE Smoking status for patients 13 years old or olde r: Current every day smoker Re-Evaluation MDM Re-Evaluation/Progress #2 Text/Dict Note Reevaluated patient. Reviewed patient's lab diagnostic imaging result s. Discussed patient's condition, symptoms and diag nosis. Discussed plan of discharge to include t aking mag citrate for constipation and following up with PCP. Return precautions as discussed. Patient verbali zed understanding and is agreeable with plan. Time of Eval 0200 Plan Post Re-Eval Plan discharge Patient Discharge Departure Vital Signs/Condition Condition Stable Clinical Impression Clinical Impression Primary Impression: Constipation Secondary Impressions: H/O ETOH abuse Time of Impression 0205 Disposition Decision Discharge )( Discharged to Home Yes )( Time 0218 )( Date 08/16/19 Discharge/Care Plan Counseled Regarding Diagnosi s, Lab results, Imaging studies, Need for follow-up, Smoking cessation, When to return to ED Discharge Note I have spoken with the patie nt and/or caregivers. I have explained the patient's condition, diagnoses and fanatsma atment plan based on the information available to me at this time. I have answered the patient's and/ or caregiver's questions and addressed any concerns. The patient and/or careg nae have as good an understanding of the patient 's diagnosis, condition and treatment plan as can be expected at this point. The vital signs have bee n stable. The patient's condition is stable and appr opriate for discharge from the emergency department. The patient will pursue further outpatient evalu ation with the primary care physician or other designated or consulting phys ician as outlined in the discharge instructions. The patient and/or caregivers are agreeable to this plan of care and follow-up instructions have been exp lained in detail. The patient and/or caregivers have received these instructio ns in written format and have expressed an understanding of the discharge inst ructions. The patient and/or caregivers are aware that any significant change in condition or worsening of symptoms should prompt an immediate return to [facility] or the closest emergency department or a call to 911. Quality Measures Smoking Cessation Screened, tobacco user, Tobacc o cess intervention Tobacco Screening/Cessation 18 years or older, Tobacco user, Smoking cessation offered, Declined help Cristian Jones 08/16/197: HPI-Abd Pain F Under 40 Presentation Chief Complaint Abdominal pain Hx Obtained From Patient Sudden in Onset? No Onset Occurred Today Symptom Duration Since onset Progression since Onset Unchanged Caused by No trauma by history Location RUQ Quality Painful Radiation Does not radiate. Migration/Movement None Severity: Onset Moderate Severity: Current Moderate Associated with Denies: Diarrhea, Vomiting. Associated Other Pt denies other symptoms Exacerbated by Nothing Relieved by Nothing Free Text HPI Notes Free Text HPI Notes 34 y/o F w/ no significant P MH, presents to the ED with c/o RUQ abd pain today. [facility] Pt states she is concerned for liver damage from alcoholism. Pain is nonradiating. Pt denies V/D. Portions of this section were scribed by Daniella Mauricio on 08/16/19 at 0237 Risk-Abd Pain F Under 40 )( Ectopic Risk factors reviewed, No r isk factors Portions of this section were scribed by Daniella Mauricio on 08/16/19 at 0237 Review of Systems ROS Statements All systems rev neg except as marked. Focused Review of Systems Constitutional Denies: Chills, Fever. Respiratory Denies: Cough, productive, Shortness of breath. Cardiovascular Denies: Chest pain, Palpitations. GI Reports: Abdominal pain (RUQ). Denies: Diarrhea, Vomiting. Female Denies: Dysuria, Hematuria. Musculoskeletal Denies: Back pain, Extremity pain. Additional Review of Systems Eyes Denies: Blurred bilat, Discharge bilat. Ears/Nose/Throat Denies: Ear drainage bilat, Ear ringing bilat. Skin Denies: Abrasion, Erythema. Neurologic Denies: Change LOC, Headache. Portions of this section were scribed by Daniella Mauricio on 08/16/19 at 0237 Past Medical History - Adult Pt reports no significant: Family history Alcohol Use Alcohol use Drug Use Denies recreational drugs Portions of this section were scribed by Daniella Mauricio on 08/16/19 at 0237 Physical Exam Vital Signs Vital Signs First Documented: Result Date Time Pulse Ox 98 08/15 232 B/P 112/71 08/15 2325 B/P Mean 84 08/15 2325 O2 Delivery Room air 08/15 2325 Temp 36.8 08/15 2325 Pulse 96 08/15 232 Resp 17 08/15 2325 Last Documented: Result Date Time Pulse Ox 98 08/16 0230 B/P 111/74 08/16 0230 B/P Mean 86 08/16 230 O2 Delivery Room air 08/16 023 Pulse 76 08/16 0230 Resp 16 08/16 023 Temp 36.8 08/15 232 Review of Vital Signs Reviewed Focused PE General/Const General/Const Awake, Alert, No acute distress Text/Dict Notes stigmata of cirrhosis Appearance/Presentation Negative: Icteric. MS Head Head Atraumatic, Normocephalic Eyes Eyes PERRL, EOMI, No nystagmus Ears/Nose/Throat Ears/Nose/Throat Airway patent, Mucous membrane s moist, Pharynx NL Resp/Chest Respiratory/Chest Breath sounds NL, Breath soun ds = bilat, No respiratory distress Cardiovascular Cardiovascular Heart rate NL, Regular rhythm, H eart sounds NL Abdomen/GI Abdomen/GI Soft, No guarding, No rebound Tenderness/Guarding/Rebound Tender RUQ. Bowel Sounds/Distention Distention mild. MS Back Back Inspection NL, Full range of motion, Painl ess range of motion, Non- tender Skin Skin Color NL, No rash, Warm, Dry, Intact Genitourinary General Exam deferred Neurologic Neurologic Oriented X3, Speech NL, No motor def icits, No sensory deficits Additional PE MS Neck Neck Supple, No meningismus, Full range of motion, No adenopathy, No swelling , Non-tender MS Upper Extrem Upper Extremity/MS Inspection NL, Full range of motion, No swelling, Non- tender MS Lower Extrem Lower Ext/Pelvis/MS Inspection NL, Full range o f motion, No swelling, Non- tender Psychiatric Psychiatric Affect NL, Mood NL Portions of this section were scribed by Daniella Mauricio on 08/16/19 at 0237 Interpretation Diagnostics Lab Results Interpretation Results Laboratory Tests 08/16/19137: [Embedded Image Not Available] Laboratory Tests: 08/16 Chemistry Sodium (133 - 144 mmol/L) 137.0 Potassium (3.5 - 5.1 mmol/L) 3.7 Chloride (95 - 105 mmol/L) 104 Carbon Dioxide (21 - 32 mmol/L) 24 Anion Gap (4.0 - 15.0 GAP calc) 9.0 BUN (7 - 18 MG/DL) 7 Creatinine (0.55 - 1.30 MG/DL) 0.75 Glomerular Filtr Rate (>60 estGFR) 88 Glucose (70 - 110 MG/DL) 73 Calcium (8.5 - 10.1 MG/DL) 8.9 Total Bilirubin (0.00 - 1.00 MG/DL) 0.38 Direct Bilirubin (0.00 - 0.30 MG/DL) 0.12 Indirect Bilirubin (0.2 - 1.3 MG/DL) 0.26 AST (15 - 37 Unit/L) 17 ALT (12 - 78 Unit/L) 30 Total Alk Phosphatase (45 - 117 Unit/L) 45 Total Protein (6.4 - 8.2 G/DL) 7.1 Albumin (3.4 - 5.0 G/DL) 3.7 Albumin/Globulin Ratio (1.2 - 2.2 RATIO) 1.1 L Serum , Qual (NEG SCREEN) NEG Specimen Appearance (1 NORMAL Index/DL) 1 NEAL L <2 MG Specimen Hemolysis (1 NORMAL Index/DL) 1 NORMAL <10 MG Hematology WBC (4.1 - 12.1 K/mm3) 7.9 RBC (3.8 - 5.5 M/mm3) 4.01 Hgb (10.6 - 15.8 G/DL) 13.0 Hct (31.8 - 47.4 %) 36.9 MCV (80.1 - 101.1 fL) 92.0 MCH (25.3 - 35.3 pg) 32.4 MCHC (32.7 - 35.1 G/DL) 35.2 H RDW (12.2 - 16.4 %) 11.6 L Plt Count (155 - 337 K/mm3) 165 MPV (6.8 - 11.2 fL) 12.8 H Gran % (37.8 - 82.6 %) 45.4 Lymph % (Auto) (14.1 - 45.4 %) 42.5 Kidder % (Auto) (2.5 - 11.7 %) 6.3 Eos % (Auto) (0.0 - 6.2 %) 4.6 Baso % (Auto) (0.0 - 2.1 %) 0.9 Gran # (2.0 - 13.7 k/mm3) 3.59 Lymph # (Auto) (0.6 - 3.8 K/mm3) 3.35 Kidder # (Auto) (0.11 - 0.59 K/mm3) 0.50 Eos # (Auto) (0.0 - 0.4 K/mm3) 0.36 Baso # (Auto) (0.0 - 0.1 K/mm3) 0.07 Immature Gran % (0.0 - 2.0 %) 0.3 Nucleated RBC % (0.0 - 1.0 /100WBC%) 0.0 Nucleated RBCs # (0.0 - 0.05 K/mm3) 0.00 Toxicology Ethyl Alcohol (0 - 10 MG/DL) < 3 Point of Care Testing Pulse Oximetry Pulse Ox % 97 On: Room air Interpretation Interpreted by , Pulse oximetr y normal Time 0120 Portions of this section were scribed by Daniella Mauricio on 08/16/19 at 0237 Re-Evaluation MDM )( Re-Evaluation/Progress #1 Text/Dict Note Pain well controlled in the ED. Reviewed labs w/ pt. Discussed plan to discharge pt home. Provided strict return precauti ons and at home care instructions. All questions and concerns addressed. The pt is talya galicia w/ the plan of care. Time of Re-Eval 0216 )( Re-Eval Status Improved ED Course Medication(s) Ordered Medication(s) Ordered: Gastrointestinal Drugs Sig/Fidel Start time Last Medication Dose Route Stop Time Status Admin Magnesium Citrate 300 ML X1ED STA 08/16 022 DC 08/16 PO 08/16 022 0235 Portions of this section were scribed by Daniella Mauricio on 08/16/19 at 0237 Patient Discharge Departure Vital Signs/Condition Vital Signs First Documented: Result Date Time Pulse Ox 98 08/15 2325 B/P 112/71 08/15 2325 B/P Mean 84 08/15 2325 O2 Delivery Room air 08/15 2325 Temp 36.8 08/15 2325 Pulse 96 08/15 2325 Resp 17 08/15 2325 Last Documented: Result Date Time Pulse Ox 98 08/16 230 B/P 111/74 08/16 230 B/P Mean 86 08/16 230 O2 Delivery Room air 08/16 230 Pulse 76 08/16 230 Resp 16 08/16 230 Temp 36.8 08/15 2325 All vital signs available at the time of this en try have been reviewed. Supervising Physician Note Scribe Statement Daniella Mauricio, 08/16/19 0302, scribing for and in the presence of Cristian Jones. Signed By: Daniella Mauricio, 08/16/19 0302 Provider Scribed Statement I personally performed the s ervices described in this documentation and reviewed the documentation that was dictated to the scrib e(s) in my presence, and it accurately records my words and actions. Cristian Barros, 08/16/19 Portions of this section were scribed by Daniella Mauricio on 08/16/19 at 0237 Electronically Signed by Cristian Jones MD on at 0315 at 2241 RPT #:[id number] END OF REPORT
--- NOTE | 2023-07-02 14:35 | EDPHYS ---
Physician Documentation [facility] Name: Amanda Lees Age: 38 yrs Sex: Female : 1985 Arrival Date: 07/02/2023 Time: 13:44 Bed DX4 Private MD: ED Physician Hugo Colindres HPI: 07/02 15:28 This 38 yrs old Female presents to ER via Ambulatory with complaints of Anxiety, Chest snw Tightness. Historical: - Allergies: 14:12 No Known Allergies; mb9 - Home Meds: 14:12 Lexapro 20 mg Oral tablet daily [Active]; prazosin 2 mg Oral capsule every evening mb9 [Active]; - PMHx: 14:12 Anxiety; Depression; severe PTSD; Bipolar disorder; mb9 - PSHx: 14:12 section; mb9 14:13 Ligation of fallopian tube; mb9 - Immunization history:: Adult Immunizations up to date. - Social history:: Smoking status: Patient denies any tobacco usage or history of. ROS: 15:27 Constitutional: Negative for fever, chills, and weight loss, Eyes: Negative for injury, snw pain, redness, and discharge, ENT: Negative for injury, pain, and discharge, Neck: Negative for injury, pain, and swelling. 15:27 Respiratory: Negative for shortness of breath, cough, wheezing, and pleuritic chest pain, Abdomen/GI: Negative for abdominal pain, nausea, vomiting, diarrhea, and constipation, Back: Negative for injury and pain, : Negative for injury, bleeding, discharge, and swelling, MS/Extremity: Negative for injury and deformity, Skin: Negative for injury, rash, and discoloration, Neuro: Negative for headache, weakness, numbness, tingling, and seizure. 15:27 Cardiovascular: Positive for chest pain. 15:27 Psych: Positive for anxiety, insomnia, Klonopin has helped in the past. Exam: 15:25 Head/Face: Normocephalic, atraumatic. Eyes: Pupils equal round and reactive to light, snw extra-ocular motions intact. Lids and lashes normal. Conjunctiva and sclera are non-icteric and not injected. Cornea within normal limits. Periorbital areas with no swelling, redness, or edema. ENT: Nares patent. No nasal discharge, no septal abnormalities noted. Tympanic membranes are normal and external auditory canals are clear. Oropharynx with no redness, swelling, or masses, exudates, or evidence of obstruction, uvula midline. Mucous membranes moist. Neck: Trachea midline, no thyromegaly or masses palpated, and no cervical lymphadenopathy. Supple, full range of motion without nuchal rigidity, or vertebral point tenderness. No Meningismus. Chest/axilla: Normal chest wall appearance and motion. Nontender with no deformity. No lesions are appreciated. Cardiovascular: Regular rate and rhythm with a normal S1 and S2. No gallops, murmurs, or rubs. Normal PMI, no JVD. No pulse deficits. Respiratory: Lungs have equal breath sounds bilaterally, clear to auscultation and percussion. No rales, rhonchi or wheezes noted. No increased work of breathing, no retractions or nasal flaring. Abdomen/GI: Soft, non-tender, with normal bowel sounds. No distension or tympany. No guarding or rebound. No evidence of tenderness throughout. Back: No spinal tenderness. No costovertebral tenderness. Full range of motion. Skin: Warm, dry with normal turgor. Normal color with no rashes, no lesions, and no evidence of cellulitis. MS/ Extremity: Pulses equal, no cyanosis. Neurovascular intact. Full, normal range of motion. Neuro: Awake and alert, GCS 15, oriented to person, place, time, and situation. Cranial nerves II-XII grossly intact. Motor strength 5/5 in all extremities. Sensory grossly intact. Cerebellar exam normal. Normal gait. 15:25 Constitutional: The patient appears alert, awake, anxious. 15:25 Psych: Behavior/mood is pleasant, cooperative, anxious, Oriented to person, place, time, Patient has no thoughts/intents to harm self or others. Vital Signs: 14:14 BP 110 / 85; Pulse 85; Resp 18; Temp 98.3; Pulse Ox 100% ; Weight 64.86 kg; Height 5 mb9 ft. 1 in. ; 14:14 Body Mass Index 27.02 (64.86 kg, 154.94 cm) mb9 MDM: 14:17 Patient medically screened. snw 15:26 Differential diagnosis: anxiety, depression, nonspecific chest pain. Data reviewed: snw vital signs, nurses notes. Counseling: I had a detailed discussion with the patient and/or guardian regarding: the historical points, exam findings, and any diagnostic results supporting the discharge/admit diagnosis, the need for outpatient follow up, for definitive care, to return to the emergency department if symptoms worsen or persist or if there are any questions or concerns that arise at home. Special discussion: Based on the history and exam findings, there is no indication for further emergent testing or inpatient evaluation. I discussed with the patient/guardian the need to see the psychiatrist for further evaluation of the symptoms. ED course: Discussed with pt limited prescription and will not refill. Must f/u psych. Pt states even an emergency appt will take two weeks. limited rx given. 07/02 14:17 Order name: EKG; Complete Time: 14:17 snw 07/02 14:17 Order name: EKG - Nurse/Tech; Complete Time: 14:19 snw EC:25 Rate is 80 beats/min. Rhythm is regular. QRS [place] is Normal. [place] interval is normal. QRS snw interval is normal. QT interval is normal. No Q waves. Clinical impression: NSR w/ Non-specific ST/T Changes. Administered Medications: 14:46 Drug: clonazePAM PO 1 mg Route: PO; bp 14:46 Follow up: Response: No adverse reaction bp Disposition: 16:18 Co-signature as Attending Physician, Hugo Colindres MD I reviewed the patient's care rn provided by the Advanced Practice Provider and agree with the diagnosis and treatment plan. Disposition Summary: 07/02/23 14:35 Discharge Ordered Location: Home snw Condition: Stable snw Diagnosis - Adjustment disorder with anxiety snw Followup: snw - With: Emergency Department - When: As needed - Reason: Worsening of condition Followup: snw - With: Private Physician - When: 1 week - Reason: Recheck today's complaints, Continuance of care, Re-evaluation by your physician Discharge Instructions: - Discharge Summary Sheet snw - Adjustment Disorder, Adult snw - Panic Attack snw - Complicated Grief snw - Sedative, Hypnotic, or Anxiolytic Use Disorder snw - Supporting Someone With Anxiety snw - Managing Anxiety, Adult snw Forms: - Medication Reconciliation Form snw - Thank You Letter snw - Antibiotic Education snw - Prescription Opioid Use snw - Patient Portal Instructions snw Prescriptions: - Klonopin 1 mg Oral Tablet - take 1 tablet by ORAL route daily As needed; 6 tablet; Refills: 0, Product snw Selection Permitted Signatures: Jen Mack, PAPER HANGER-C PAPER HANGER-Csnw Hugo Colindres MD MD rn Peltier, Brian RN RN Danisha Vines RN RN mb9
--- NOTE | 2023-07-02 14:35 | ER ---
Nurse's Notes [facility] Name: Amanda Lees Age: 38 yrs Sex: Female : 1985 Arrival Date: 07/02/2023 Time: 13:44 Bed DX4 Private MD: Diagnosis: Adjustment disorder with anxiety Presentation: 07/02 14:10 Chief complaint: Patient states: "I just lost my job and have been having a lot of mb9 anxiety attacks lately. I'm really stressed. I have chest tightness and it comes and goes since 3 days ago. My psychiatrist, Dr. Templeton, told me to come here. I'm not sleeping or functioning right". 14:14 Coronavirus screen: Vaccine status: Patient reports receiving the 2nd dose of the covid mb9 vaccine. Ebola Screen: No symptoms or risks identified at this time. Initial Sepsis Screen: Does the patient meet any 2 criteria? No. Patient's initial sepsis screen is negative. Does the patient have a suspected source of infection? No. Patient's initial sepsis screen is negative. Risk Assessment: Do you want to hurt yourself or someone else? Patient reports no desire to harm self or others. Onset of symptoms was July 02, 2023. 14:14 Method Of Arrival: Ambulatory mb9 14:14 Acuity: VIVEK 3 mb9 Triage Assessment: 14:13 General: Appears in no apparent distress. Behavior is anxious. Pain: Complains of pain mb9 in chest. Neuro: [place] Agitation-Sedation Scale (RASS): 0 - Alert and Calm Level of Consciousness is awake, alert, obeys commands, Oriented to person, place, time, situation, Appropriate for age. Neuro: Reports headache. Cardiovascular: Reports chest pain. Respiratory: Airway is patent Respiratory effort is even, unlabored, Respiratory pattern is regular, symmetrical. GI: Reports nausea. Derm: Skin is pink, warm \\T\\ dry. Musculoskeletal: Range of motion: Reports. Historical: - Allergies: 14:12 No Known Allergies; mb9 - Home Meds: 14:12 Lexapro 20 mg Oral tablet daily [Active]; prazosin 2 mg Oral capsule every evening mb9 [Active]; - PMHx: 14:12 Anxiety; Depression; severe PTSD; Bipolar disorder; mb9 - PSHx: 14:12 section; mb9 14:13 Ligation of fallopian tube; mb9 - Immunization history:: Adult Immunizations up to date. - Social history:: Smoking status: Patient denies any tobacco usage or history of. Screenin:46 [facility] ED Fall Risk Assessment (Adult) History of falling in the last 3 months, bp including since admission No falls in past 3 months (0 pts). Abuse screen: Denies threats or abuse. Denies injuries from another. Nutritional screening: No deficits noted. Tuberculosis screening: No symptoms or risk factors identified. Assessment: 14:46 Reassessment: [facility]. bp Vital Signs: 14:14 BP 110 / 85; Pulse 85; Resp 18; Temp 98.3; Pulse Ox 100% ; Weight 64.86 kg; Height 5 mb9 ft. 1 in. ; 14:14 Body Mass Index 27.02 (64.86 kg, 154.94 cm) mb9 ED Course: 13:47 Patient arrived in ED. im 13:55 Jen [facility]C [facility] snw 13:55 Hugo Colindres MD is Attending Physician. snw 14:10 Arm band placed on. mb9 14:15 Triage completed. mb9 14:15 EKG done, by ED staff, reviewed by Jen HUERTA. mb9 14:45 Epi Downs, LINDA is Primary Nurse. bp 14:46 Patient has correct armband on for positive identification. Provided Education on: N/A. bp Cardiac monitoring not applicable on this patient. 14:46 No provider procedures requiring assistance completed. Patient did not have IV access bp during this emergency room visit. Patient maintains SpO2 saturation greater than 95% on room air. Administered Medications: 14:46 Drug: clonazePAM PO 1 mg Route: PO; bp 14:46 Follow up: Response: No adverse reaction bp Medication: 14:46 VIS not applicable for this client. bp Outcome: 14:35 Discharge ordered by MD. snw 14:46 Discharged to home ambulatory, with family. bp 14:46 Condition: stable 14:46 Discharge instructions given to patient, Instructed on discharge instructions, follow up and referral plans. medication usage, Demonstrated understanding of instructions, follow-up care, medications, Prescriptions given X 1. 14:47 Patient left the ED. bp Signatures: Jen Mack FNP-C RACE RELATIONS ADVISER-Csnw Epi Dwons, RN RN bp Danisha Mccann, RN RN mb9 Laura Darnell
[2023-07-02] MEDS ORDERED: clonazePAM 1 MG TAB ONE (14:52)
[2023-07-02 15:31] VITALS: BP 110/85; TEMP 98.3; O2SAT 100
--- NOTE | 2023-07-05 15:35 | EKG ---
Test Date: 2023-07-02 Test Time: 14:17:45 Cloth Washer Back Tender: VANESSA MEASUREMENT RESULTS: Intervals: Rate: 80 SC: 142 QRSD: 74 QT: 338 QTc: 389 [place]: P: 72 SC: 142 QRS: 93 T: 76 INTERPRETIVE STATEMENTS: Normal sinus rhythm Rightward axis Borderline ECG Compared to ECG 11/05/2022 00:25:51 No significant changes Electronically Signed On 07-05-23 15:31:58 CDT by Abelardo Heller
== END 2023-07-02 14:47 | disposition home or self-care (01) ==
LOC: ER 13:44
DX: F43.22 Adjustment disorder with anxiety (principal); F31.9 Bipolar disorder, unspecified
CPT/HCPCS: 93005; 99284

== ENCOUNTER 2023-08-12 13:37 | Emergency (ER) | payer OTHER, SELFPAY ==
--- OUTSIDE RECORDS SUMMARY | 2023-08-12 13:44 | XMS REPORT | Continuity of Care Document ---
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 Heart rate 2021-05-07 19:00:00 81 /min [facility] Respiratory rate 2021-05-07 19:00:00 18 /min Univ [facility] Oxygen saturation in 2021-05-07 19:00:00 97 /min [facility] Arterial blood by [facility] Pulse oximetry Branch Body temperature 2021-05-07 02:00:00 37.39 Brittany [facility] weight 2021-05-06 03:16:00 58.968 kg [facility] BMI 2021-05-06 03:16:00 23.78 kg/m2 [facility] Temperature Oral (F) 2023-04-19 17:47:00 97.8 F [facility] Heart Rate 2023-04-19 17:47:00 [facility] Systolic (mm Hg) 2023-04-19 17:47:00 Nawaf garcia [facility] Diastolic (mm Hg) 2023-04-19 17:47:00 Mem orial [facility] Height 2023-04-19 14:50:00 5 [ft_i] [facility] BMI Calculated 2023-04-19 14:50:00 Memori al [facility] Weight 2023-04-19 14:50:00 [facility] Systolic blood 2022-01-24 16:28:00 122 mm[Hg] [facility] pressure Diastolic blood 2022-01-24 16:28:00 73 mm[Hg] [facility] pressure Heart rate 2022-01-24 16:28:00 106 /min [facility] Body temperature 2022-01-24 16:28:00 37.28 Brittany [facility] Respiratory rate 2022-01-24 16:28:00 18 /min [facility] Body height 2022-01-24 16:28:00 154.9 cm [facility] Body weight 2022-01-24 16:28:00 72.576 kg [facility] BMI 2022-01-24 16:28:00 30.23 kg/m2 [facility] Oxygen saturation in 2022-01-24 16:28:00 97 /min [facility] Arterial blood by Pulse oximetry Height 2021-07-04 16:27:00 154.94 cm [facility] BMI Calculated 2021-07-04 16:27:00 Memori al [facility] Weight 2021-07-04 16:27:00 [facility] Systolic (mm Hg) 2021-07-04 16:27:00 Nawaf rial [facility] Diastolic (mm Hg) 2021-07-04 16:27:00 Mem orial [facility] Heart Rate 2021-07-04 16:27:00 [facility] Respitory Rate 2021-07-04 16:27:00 Memori al [facility] Temperature Oral (F) 2021-07-04 16:27:00 98.5 F [facility] Heart Rate 2020-01-27 22:52:00 [facility] Respitory Rate 2020-01-27 22:52:00 [facility] Systolic (mm Hg) 2020-01-27 22:52:00 Nawaf rial [facility] Diastolic (mm Hg) 2020-01-27 22:52:00 Mem orial [facility] Heart Rate 2020-01-27 19:58:00 [facility] Respitory Rate 2020-01-27 19:58:00 Memori al [facility] Systolic (mm Hg) 2020-01-27 19:58:00 Nawaf rial Wan Diastolic (mm Hg) 2020-01-27 19:58:00 Mem orial [facility] Systolic (mm Hg) 2020-01-27 18:12:00 Nawaf rial [facility] Diastolic (mm Hg) 2020-01-27 18:12:00 Mem orial [facility] Heart Rate 2020-01-27 18:12:00 [facility] Respitory Rate 2020-01-27 18:12:00 Memori al [facility] Height 2020-01-27 18:12:00 154.94 cm [facility] BMI Calculated 2020-01-27 18:12:00 Memori al [facility] Weight 2020-01-27 18:12:00 [facility] Systolic (mm Hg) 2019-08-04 23:16:00 Nawaf Gaitanann Diastolic (mm Hg) 2019-08-04 23:16:00 Darinel Blas Heart Rate 2019-08-04 23:16:00 Elly Gaitanann Respitory Rate 2019-08-04 23:16:00 Bobby Davies Temperature Oral (F) 2019-08-04 23:16:00 97.8 F Elly Blas Procedures Procedure Date / Time Performing Clinician Source Performed ASSIGNMENT OF BENEFITS 2023-01-27 20:39:54 Doctor Unassigned, No [facility] POCT TEST 2022-12-11 19:57:00 [facility] COMP. METABOLIC PANEL 2022-12-11 19:53:00 Amanda Peter [facility] ([id number] SALICYLATE 2022-12-11 19:53:00 Amanda Peter [facility] ETHANOL 2022-12-11 19:53:00 Amanda Peter [facility] CBC WITH DIFF 2022-12-11 19:53:00 Amanda Peter [facility] URINALYSIS 2022-12-11 19:53:00 Amanda Peter [facility] URINE DRUG (IMMUNOASSAY) 2022-12-11 19:53:00 Amanda Peter [facility] DRUG [facility] nch SCREEN W/O REFLEX CT ABDOMEN PELVIS W 2022-10-05 02:01:00 Stephanie Franklin [facility] POCT TEST 2022-10-05 01:10:00 Stephanie Franklin [facility] URINALYSIS 2022-10-05 01:02:00 Stephanie Franklin [facility] COMP. METABOLIC PANEL 2022-10-05 00:43:00 Stephanie Franklin [facility] ([id number]) [facility] CBC WITH DIFF 2022-10-05 00:43:00 Stephanie Franklin [facility] CONSENT/REFUSAL FOR 2022-10-04 23:58:19 Doctor Unassigned, No [facility] DIAGNOSIS AND TREATMENT [facility] CT ABDOMEN PELVIS W 2022-09-22 17:42:43 Pavel Shay [facility] CONTRAST [facility] POCT TEST 2022-09-22 16:46:00 Pavel Shay [facility] [place] LIPASE 2022-09-22 16:39:00 Pavel Shay [facility] COMP. METABOLIC PANEL 2022-09-22 16:39:00 Pavel Shay [facility] ([id number]) Medical Branch CBC WITH DIFF 2022-09-22 16:39:00 Pavel Shay [facility] URINALYSIS 2022-09-22 16:39:00 Pavel Shay [facility] ADC OR CYNTHIA ONLY - 2022-09-22 16:39:00 Pavel Shay [facility] RPR [facility] HIV 1/2 AG-AB WITH 2022-09-22 16:39:00 Pavel Shay [facility] REFLEX [facility] CONSENT/REFUSAL FOR 2022-09-22 15:44:05 Doctor Unassigned, No Un [facility] DIAGNOSIS AND TREATMENT Name [facility] [place] SARS-COV-2, FLU A/B, RSV 2021-12-25 10:54:[address] [facility] CORONAVIRUS, COVID-19, 2021-12-25 10:54:00 [facility] LYNN CBC/DIFF 2021-12-24 14:13:00 Dag[facility] BASIC METABOLIC PANEL 2021-12-24 14:13:00 [facility]EN 2021-12-24 14:13:00 Dagmar Segura [facility] lt HIV AG/AB COMBO 2021-12-24 14:13:00 [facility]SYMPTOMAT[facility] CBC 2021-12-24 14:13:00 Dagmar [facility] COVID-[facility] (MOLECULAR 2021-05-07 02:19:00 Erlin Walton [facility] TESTING [facility] NUCLEIC ACID AMPLIFICATION) CK-MB (WITHOUT INDEX) 2021-05-07 02:16:00 Erlin Walton [facility] POTASSIUM SERUM 2021-05-06 13:19:00 Cristóbal De León [place] o [facility] HEPATIC FUNCTION PANEL 2021-05-06 06:03:00 Amanda Peter [facility] ([id number]) (ALB,T.PRO,BILI [facility] T,BU/BC,ALT,AST,ALK PHOS) BASIC METABOLIC PANEL 2021-05-06 06:03:00 Amanda Peter [facility] (NA, K, CL, CO2, Medical Branch GLUCOSE, BUN, CREATININE, CA) HB ECG ROUTINE & RHYTHM 2021-05-06 04:46:27 [facility] 2021-05-06 04:08:00 Amanda Peter [facility] SALICYLATE 2021-05-06 04:04:00 Amanda Peter [facility] ETHANOL 2021-05-06 04:04:00 Amanda Peter [facility] URINE DRUG (IMMUNOASSAY) 2021-05-06 04:04:00 Amanda Peter [facility] DRUG Medical [facility] SCREEN CBC WITH DIFF 2021-05-06 04:04:00 Amanda Peter [facility] URINALYSIS 2021-05-06 04:04:00 Amanda Peter [facility] COVID-19 (ID NOW RAPID 2021-05-06 04:04:00 Amanda Peter [facility] TESTING) [facility] NOTICE OF PRIVACY 2021-05-06 02:44:14 Doctor Unassigned, No [facility] PRACTICES Name [facility] CONSENT/REFUSAL FOR 2021-05-06 02:43:53 Doctor Unassigned, No [facility] DIAGNOSIS AND TREATMENT Name [facility] Plan of Care Planned Activity Planned Date Details Comments Source Future Scheduled Test 2023-08-23 00:00:00 IMM Influenza [facility] Seasonal (>/= 19 yrs) [code = IMM Influenza Seasonal (>/= 19 yrs)] Future Scheduled Test 2023-08-23 00:00:00 IMM Influenza [facility] Seasonal (>/= 19 yrs) [code = IMM Influenza Seasonal (>/= 19 yrs)] Future Scheduled Test 2022-08-23 00:00:00 IMM Influenza [facility] Seasonal (>/= 19 yrs) [code = IMM Influenza Seasonal (>/= 19 yrs)] Future Scheduled Test 2014 00:00:00 Screening for [facility] malignant neoplasm of cervix (procedure) [code = 453126255] Future Scheduled Test 2014 00:00:00 Screening for [facility] malignant neoplasm of cervix (procedure) [code = 611576715] Future Scheduled Test 2014 00:00:00 Screening for [facility] malignant neoplasm of cervix (procedure) [code = 439877446] Future Scheduled Test 2014 00:00:00 Screening for [facility] malignant neoplasm of cervix (procedure) [code = 892067118] Future Scheduled Test 2005 00:00:00 Screening for [facility] malignant neoplasm of cervix (procedure) [code = 234906058] Future Scheduled Test 2005 00:00:00 Screening for [facility] malignant neoplasm of cervix (procedure) [code = 458521049] Future Scheduled Test 1984 00:00:00 COVID-19 Vaccine (#1) [facility] [code = COVID-19 Vaccine (#1)] Future Scheduled Test 1984 00:00:00 COVID-19 Vaccine (#1) [facility] [code = COVID-19 Vaccine (#1)] Future Scheduled Test 1984 00:00:00 COVID-19 Vaccine (#1) [facility] [code = COVID-19 Vaccine (#1)] Encounters Start End Encounter Admission Attending Care Care Encounter Source Date/Time Date/Time Type Type Clinicians Facility Department ID 2023-04-19 Outpatient [facility] [id number] [place] 10:45:04 [id number] [facility] 2022-11-07 Outpatient [facility] [id number] [place] 20:09:48 [id number] [facility] 2022-11-05 Outpatient [facility] [id number] [place] 00:58:27 [id number] [facility] 2022-03-24 Outpatient [facility] [id number] [place] 14:13:21 [facility] 2022-03-04 Outpatient [facility] [id number] [place] 13:49:44 [facility] 2022-02-14 Outpatient [facility] [id number] [place] 21:50:44 [id number] [facility] 2021-09-25 Outpatient [facility] [id number] [place] 09:53:09 [id number] Melchor [facility] 2021-09-23 Emergency [facility] [id number] [facility]:54[facility]15 Outpatient SLY, [facility] [id number] [facility] 17:20:53 FRANCISCO 2020-09-08 Inpatient HCANW ADNA [id number] [facility] 22:22:00 36 [facility] are [facility] 2020-04-25 Inpatient RAMON Puente, [facility] DAYS [id number] [facility] 11:15:00 Zachariah 02 [facility] 2020-01-21 Inpatient [facility] ADAN [id number] [facility] 16:53:00 [id number] [facility] 2023-04-19 2023-04-19 [facility] [id number] 14:48:00 17:51:[address] 2023-04-19 2023-04-19 Emergency E BRAIN, MHNW MHNW [id number] [facility] 09:48:00 12:51:00 RAMO 2023-04-19 2023-04-19 Emergency E BRAIN, MHNW MHNW [id number] [facility] 09:48:00 12:51:00 RAMO 2023-04-19 2023-04-19 Outpatient Brain, M[facility] [id number] 09:48:00 12:51:00 Ramo Osorio 2023-01-27 2023-01-27 Professional Security Officer Emily, Carlos Eduardo Lab Main [facility] [id number] Univers 14:45:00 15:00:00 Visit Smita [place] [id number] [facility] [id number] Krzysztof AHMADI [id number] [address] 2023-01-27 2023-01-27 Outpatient Ellen [facility]NEY [facility] [id number] Univers 14:45:00 14:45:00 SMITA ity of [facility] 2023-01-27 2023-01-27 Orders Doctor SYDNIE [id number] Univers 00:00:00 00:00:00 Only Unassigned, RICHARD [id number] ity of [place] [facility] [id number] [place] [id number] [place] [id number] Branch 2022-12-11 2022-12-11 Emergency X ROME [facility] ERT [id number] Univers 13:29:00 20:07:00 AMANDA ityary [facility] 2022-12-11 2022-12-11 [facility] [id number] Univers 13:29:00 20:07:00 Amanda EUCEDA [id number] ity of [place] [id number] [facility] s [place] [id number] [address] 2022-10-04 2022-10-04 Emergency X DEVORAH [facility] ERT [id number] Univers 18:19:00 21:23:00 WAKILI ity [facility] 2022-10-04 2022-10-04 Emergency NoemiStephanie Ness [facility] 1.2.840 .[id number] Univers 18:19:00 21:23:00 Martha PachecoREBECCA [id number] ity of [place] [id number] [facility] [id number] [address] 2022-09-22 2022-09-22 Emergency [facility] [id number] Univers 10:46:00 14:02:00 PAVEL ity [facility] 2022-09-22 2022-09-22 Emergency [facility] [id number] Univers 10:46:00 14:02:00 Pavel S ANGLEREBECCA [id number] i ty of [place] [id number] [id number] [address] 2022-06-30 2022-06-30 Outpatient R MERLENE [facility] [id number] Univers 09:15:00 09:15:00 DEBRA [id number] ityary o rodrigue [facility] 2022-06-30 2022-06-30 Outpatient R MERLENE, [facility] [id number] Univers 09:15:00 09:15:00 DEBRA britoy o f [facility] 2022-05-27 2022-05-27 Outpatient , [facility] [id number] [place] 00:00:00 00:00:00 [facility] 2022-04-24 2022-04-24 Outpatient EBENEZER [facility] [id number] [place] 00:00:00 00:00:00 Joshua MARTINEZ KATIE 2022-04-11 2022-04-11 Outpatient JAMILA, USMAN [facility] [id number] [place] 00:00:00 00:00:00 [facility] 2022-03-19 2022-03-19 Telemsrinath Porras, [facility] [id number] [place] 14:00:00 14:00:00 Counts include 234 beds at the [facility] 2022-03-07 2022-03-07 Outpatient EBENEZER [facility] [id number] [place] 00:00:00 00:00:00 Joshua MARTINEZ KATIE 2022-03-07 2022-03-07 Outpatient LUCILA, [facility] [id number] [place] 00:00:00 00:00:00 [facility] 2022-03-06 2022-03-06 Outpatient JAMILA, USMAN [facility] [id number] [place] 00:00:00 00:00:00 Health 2022-03-05 2022-03-05 [facility]medicalfred [facility] [id number] [place] 15:00:00 15:40:36 ne Corby Ramírez Joshuat 2022-03-05 2022-03-05 Orders Jenny, [facility] [id number] [place] 00:00:00 00:00:00 Only Corby Ramírez Joshuat 2022-01-24 2022-01-24 Outpatient RACHEAL BLAKELY, [facility] [id number] [place] 15:25:58 23:59:00 [facility] 2021-12-24 2021-12-25 Emergency Matorin, [facility] [id number] [place] 14:17:00 19:55:00 Germaine A [facility] 2021-12-25 2021-12-25 Outpatient MEG, [facility] [id number] [place] 00:00:00 00:00:00 [facility] 2021-12-24 2021-12-24 Emergency 1 [facility] [id number] [place] 14:17:00 14:17:00 [facility] 2021-08-22 2021-08-25 Outpatient [facility] [id number] [place] 01:05:00 04:53:00 [facility] 2021-08-22 2021-08-22 [facility] [id number] [place] 01:05:00 01:05:00 [facility] 2021-08-22 2021-08-22 Emergency [facility] [id number] [place] 00:00:00 00:00:00 [facility] 2021-08-22 2021-08-22 Outpatient CISNEROS, [facility] [id number] [place] 00:00:00 00:00:00 [facility] 2021-08-21 2021-08-21 Outpatient FATEMEH [facility] [id number] [place] 21:06:54 23:59:00 , JAYSON [facility] 2021-07-04 2021-07-04 Emergency [facility] [id number] [facility] 16:23:27 19:07:00 ellen Blas 02 l [facility] 2021-07-04 2021-07-04 Outpatient Noel [facility] [id number] 11:23:27 14:07:00 Rock R 02 2021-07-04 2021-07-04 Outpatient Noel [facility] [id number] 11:23:27 14:07:00 Rock R 02 2021-05-05 2021-05-07 Emergency Rome [facility] [id number] 22:52:00 18:16:00 Amanda Euceda [id number] [place] [id number] [place] [id number] 2021-05-05 2021-05-07 Emergency [place] [facility] 1.2.840.114 [id number] [facility] 22:52:00 18:16:00 Amanda Euceda 350.1.13.10 [facility] [place] [id number] [facility] [id number] [facility] 084 Branch 2020-04-25 2020-04-25 Outpatient REY AlmeanCR DAYS [id number] [facility] 05:31:00 05:31:00 Zachariah [id number] [facility] 2020-04-20 2020-04-20 Outpatient Kwame [facility] OUTD [id number] [facility] 13:22:00 13:22:00 Zachariah 98 [facility] 2020-04-20 2020-04-20 Outpatient Kwame [facility] OUTD [id number] [facility] 13:22:00 13:22:[address] [place] [address] 2020-01-27 2020-01-27 Emergency [facility] [id number] Memoria 18:11:04 23:05:00 ellen Blas The 01 [facility] 2020-01-27 2020-01-27 Outpatient Dennis [facility] [id number] 12:11:04 17:05:00 navneetNi paul 01 [place] 2019-08-04 2019-08-05 Emergency [facility] [id number] Memoria 23:09:41 02:42:00 ellen Blas 00 [facility] 2019-08-04 2019-08-04 Outpatient ROMAIN Grant [facility] [id number] 18:09:41 21:42:00 Prosper 00 Results Test Description Test Time Test Comments Results Result Comments Source RADRPT 2023-04-19 16:23:03 Test Item Value Reference Range Interpretation [facility] (test code = RADRPT) PROCEDURE INFORMATION: Exam: XR Abdomen Exam date and time: 04/19/2023 10:51 AM Age: 38 years old Clinical indication: /abdominal distension/constipation TECHNIQUE: Imaging protocol: Radiologic exam of the abdomen. Views: 2 Views. Upright and supine views. AP Supine and Upright COMPARISON: CR CHEST 1VIEW DX 07/04/2021 11:41 AM FINDINGS: Gastrointestinal tract: There is a non-obstructive bowel gas pattern. There is no abnormal dilatation of bowel loops. No significant air fluid levels. There is moderate retained fecal matter throughout the colon.Intraperitoneal space: No free air. Bones/joints: No acute osseous abnormality. Other findings: No radiopaque foreign body or abnormal opacity. IMPRESSION: No acute findings. Justice Wyman MD On 04/19/2023 11:21:48; [id number] [place] [address]-05-28 16:18:00 Test Item Value Reference Range Interpretation Comments Glucose Lvl (test code = Glucose Lvl) 101 70-99 [place] [address]-05-28 16:18:00 Test Item Value Reference Range Interpretation Comments BUN (test code = BUN) 10 7-22 [place] [address]-05-28 16:18:00 Test Item Value Reference Range Interpretation Comments Creatinine Lvl (test code = Creatinine 0.80 0.50-1.40 Lvl) [facility] Cen[id number] 16:18:00 Test Item Value Reference Range Interpretation Comments Sodium Lvl (test code = Sodium Lvl) 133 135-145 [place] [id number] 16:18:00 Test Item Value Reference Range Interpretation Comments Potassium Lvl (test code = Potassium 4.5 3.5-5.1 Lvl) [facility] Cen[id number] 16:18:00 Test Item Value Reference Range Interpretation Comments Chloride Lvl (test code = Chloride Lvl) 103 95-109 [facility] Cen[id number] 16:18:00 Test Item Value Reference Range Interpretation Comments CO2 (test code = CO2) 30 24-32 [place] [id number] 16:18:00 Test Item Value Reference Range Interpretation Comments Calcium Lvl (test code = Calcium Lvl) 8.9 8.5-10.5 [place] 387953-05-28 16:18:00 Test Item Value Reference Range Interpretation Comments Total Protein (test code = Total 7.2 6.4-8.4 Protein) [facility] Cen[id number] 16:18:00 Test Item Value Reference Range Interpretation Comments Albumin Lvl (test code = Albumin Lvl) 3.6 3.5-5.0 [place] 387953-05-28 16:18:00 Test Item Value Reference Range Interpretation Comments ALT (test code = ALT) 22 <=65 [facility] Cen[id number] 16:18:00 Test Item Value Reference Range Interpretation Comments AST (test code = AST) 10 <=37 [facility] CenterVndzitzSZCSWXLFT7700-60-67 16:18:00 Test Item Value Reference Range Interpretation Comments Alk Phos (test code = Alk Phos) 53 39-136 [facility] CenterMfhxzvqFOTPOCVTK4306-66-89 16:18:00 Test Item Value Reference Range Interpretation Comments Bili Total (test code = Bili Total) 0.5 0.2-1.3 [facility] CenterNvpvpvmTUTBCDMSW2387-06-81 16:18:00 Test Item Value Reference Range Interpretation Comments AGAP (test code = AGAP) 4.5 10.0-20.0 [place] [address]-05-28 16:18:00 Test Item Value Reference Range Interpretation Comments B/C Ratio (test code = B/C Ratio) 12 1 6-25 [place] [id number] 16:18:00 Test Item Value Reference Range Interpretation Comments Globulin (test code = Globulin) 3.6 2.7-4.2 [facility] CenterMagaypwTPDYGDLKE1181-02-14 16:18:00 Test Item Value Reference Range Interpretation Comments A/G Ratio (test code = A/G Ratio) 1.0 1 0.7-1.6 [facility] CenterIioierxCLPYTCIKN2739-91-12 16:18:00 Test Item Value Reference Range Interpretation Comments eGFR (test code = eGFR) 97 [facility] CenterNbwczagWIOSOCTFU6221-28-79 16:18:00 Test Item Value Reference Range Interpretation Comments S Preg (test code = S Negative *NA*(04/19/23 Preg) 11:18 AM) [facility] [id number] 16:18:00 Test Item Value Reference Range Interpretation Comments Lipase Lvl (test code = Lipase Lvl) 41 13-77 [place] [id number] 16:18:00 Test Item Value Reference Range Interpretation Comments WBC (test code = WBC) 8.5 3.7-10.4 [place] [id number] 16:18:00 Test Item Value Reference Range Interpretation Comments RBC (test code = RBC) 4.38 4.20-5.40 [facility] AllianceEdjtovcQTGJTMNEGG3028-51-33 16:18:00 Test Item Value Reference Range Interpretation Comments Hgb (test code = Hgb) 13.6 12.0-16.0 [facility] AllianceMirmtbyBZVADIGVME7435-42-36 16:18:00 Test Item Value Reference Range Interpretation Comments Hct (test code = Hct) 39.2 36.0-48.0 [place] 892383-05-28 16:18:00 Test Item Value Reference Range Interpretation Comments MCV (test code = MCV) 89.6 80.0-98.0 [facility] AllianceKrpgdqnZEVPNAWLRG4590-23-51 16:18:00 Test Item Value Reference Range Interpretation Comments MCH (test code = MCH) 31.1 pg 27.0-31.0 [facility] AllianceNiezvibEPUCRVNMFF0789-35-79 16:18:00 Test Item Value Reference Range Interpretation Comments MCHC (test code = MCHC) 34.7 32.0-36.0 [facility] AllianceNupcnytIHBTISWTEM3007-96-87 16:18:00 Test Item Value Reference Range Interpretation Comments RDW (test code = RDW) 12.8 11.5-14.5 [facility] AllianceKtyiionAOKKETUEGW4864-08-60 16:18:00 Test Item Value Reference Range Interpretation Comments Platelet (test code = Platelet) 184 133-450 [facility] AllianceZqmexwfVKWJGSWSWJ3180-77-63 16:18:00 Test Item Value Reference Range Interpretation Comments MPV (test code = MPV) 9.5 7.4-10.4 [facility] AllianceSijztupGJSQYLXCXL0789-07-82 16:18:00 Test Item Value Reference Range Interpretation Comments Segs (test code = Segs) 65.3 45.0-75.0 [facility] AllianceMuuyiyiYWVMETLAGA9484-78-07 16:18:00 Test Item Value Reference Range Interpretation Comments Lymphocytes (test code = Lymphocytes) 27.1 20.0-40.0 [facility] AllianceEskwvfhMGVTCVXEUL0333-80-64 16:18:00 Test Item Value Reference Range Interpretation Comments Monocytes (test code = Monocytes) 5.3 2.0-12.0 [place] 892383-05-28 16:18:00 Test Item Value Reference Range Interpretation Comments Eosinophils (test code = Eosinophils) 1.6 <=4.0 [place] 892383-05-28 16:18:00 Test Item Value Reference Range Interpretation Comments Basophils (test code = Basophils) 0.7 <=1.0 [facility] AllianceWnyykuyVSZNBMUKUS9970-41-79 16:18:00 Test Item Value Reference Range Interpretation Comments Neutrophils # (test code = Neutrophils 5.6 1.5-8.1 #) [facility] AllianceAryyajoCTPXSRVAPW2096-08-35 16:18:00 Test Item Value Reference Range Interpretation Comments Lymphocytes # (test code = Lymphocytes 2.3 1.0-5.5 #) [facility] AllianceTtuuiwkMLSHBEHYRD5486-22-96 16:18:00 Test Item Value Reference Range Interpretation Comments Monocytes # (test code = Monocytes #) 0.4 <=0.8 [facility] AllianceIxjoflkYUSDZCSQWH1091-15-72 16:18:00 Test Item Value Reference Range Interpretation Comments Eosinophils # (test code = Eosinophils 0.1 <=0.5 #) [facility] AllianceDiwddtnFRNMPBYBIY7639-35-47 16:18:00 Test Item Value Reference Range Interpretation Comments Basophils # (test code = Basophils #) 0.1 <=0.2 [facility] GZJQ0818-87-06 19:57:00 Test Item Value Reference Range Interpretation Comments POCT PREG (test code = 1605) negative On board controls acceptable with yes C Line (test code = 3574) POCT PREG LOT # (test code = 3575) [id number] POCT PREG TEST DATE (test 02/21/2024 code = 3576) Lab Interpretation (test code = Normal 63206-1) [facility] DYWZ4020-95-07 01:10:00 Test Item Value Reference Range Interpretation Comments On board controls acceptable with present C Line (test code = 3574) POCT PREG LOT # (test code = 3575) [id number] POCT PREG TEST DATE (test 2023-01-20 code = 3576) POCT PREG (test code = 1605) negative Lab Interpretation (test code = Normal 84997-6) [facility] WITH [id number] 01:09:20 Test Item Value Reference Range Interpretation Comments WBC (test code = See_Comment [Automated 1853-2) message] The sy stem which generated this [...] (test code = 38.1 fL 39.0-49.9 L 33207-8) RDW-CV (test code = 12.0 % 12.0-15.5 788-0) PLT (test code = See_Comment [Automated 777-3) message] The sy stem which generated this result transmitted reference range : 166 - 358 10*3/ ?L. The reference r evelina was not used to interpret this result as normal/abnormal . MPV (test code = 11.8 fL 9.5-12.9 80203-4) NRBC/100 WBC (test See_Comment [Automat ed code = 8837481323) message] The system which generated this result transmitted reference range : 0.0 - 10.0 /100 WBCs. The refer ence range was not u sed to interpret th is result as normal/abnormal . NRBC x10^3 (test code See_Comment [Auto mated = 0428028877) message] The s ystem which generated this result transmitted reference range : 10*3/?L. The reference range was not used to interpret this result as normal/abnormal . GRAN MAT (NEUT) % 57.9 % (test code = 770-8) IMM GRAN % (test code 0.50 % = 7125328584) LYMPH % (test code = 31.5 % 736-9) MONO % (test code = 6.0 % 5905-5) EOS % (test code = 3.1 % 713-8) BASO % (test code = 1.0 % 706-2) GRAN MAT x10^3(ANC) 5.03 10*3/uL 1.88-7.09 (test code = 8766002522) IMM GRAN x10^3 (test 0.04 10*3/uL 0.00-0.06 code = 1828337355) LYMPH x10^3 (test code 2.74 10*3/uL 1.32-3.29 = 731-0) MONO x10^3 (test code 0.52 10*3/uL 0.33-0.92 = 742-7) EOS x10^3 (test code = 0.27 10*3/uL 0.03-0.39 711-2) BASO x10^3 (test code 0.09 10*3/uL 0.01-0.07 H = 704-7) Lab Interpretation Abnormal (test code = 14571-2) [facility]. METABOLIC PANEL (44090)2022-10-05 01:05:39 Test Item Value Reference Range Interpretation Comments NA (test code = 140 mmol/L 135-145 4068958827) K (test code = 4.5 mmol/L 3.5-5.0 6884144546) CL (test code = 103 mmol/L 98-108 9072011461) CO2 TOTAL (test code = 29 mmol/L 23-31 6286935804) AGAP (test code = 2-16 0409236383) BUN (test code = 11 mg/dL 7-23 0640773255) GLUCOSE (test code = 109 mg/dL 70-110 2457172557) CREATININE (test code = 1.12 mg/dL 0.50-1.04 H 4153866622) TOTAL BILI (test code = 0.7 mg/dL 0.1-1.5 0011304380) CALCIUM (test code = 9.3 mg/dL 8.6-10.6 0695007490) T PROTEIN (test code = 7.5 g/dL 6.3-8.2 6895905867) ALBUMIN (test code = 4.7 g/dL 3.5-5.0 3889900682) ALK PHOS (test code = 61 U/L 34-122 6075202294) ALTv (test code = 29 U/L 5-35 1742-6) AST(SGOT) (test code = 29 U/L 13-40 2367479457) eGFR (test code = mL/min/1.73m2 8714243791) CHRYSTAL (test code = CHRYSTAL) Association of [...] tests). Lab Interpretation Abnormal (test code = 65985-1) [facility] OR [place] ONLY - [id number] 18:39:28 Test Item Value Reference Range Interpretation Comments RPR (Qualitative) (test code = Nonreactive Nonreactive 05216-4) Lab Interpretation (test code = Normal 84225-6) [facility] AG-AB WITH MXKTXA2391-90-85 17:47:56 Test Item Value Reference Range Interpretation Comments HIV Negative Negative Semi-quantitative (test code = 92958-2) CHRYSTAL (test code = Non-reactive for HIV-1 CHRYSTAL) antigen and HIV-1/HIV-2 antibodies. ?No laboratory evidence of HIV infection. ?Repeat in 2-4 weeks if acute HIV infection is suspected. [facility]. METABOLIC PANEL (21847)2022-09-22 17:10:28 Test Item Value Reference Range Interpretation Comments NA (test code = 139 mmol/L 135-145 9499143266) K (test code = 4.1 mmol/L 3.5-5.0 1745592441) CL (test code = 101 mmol/L 98-108 5938306931) CO2 TOTAL (test code = 26 mmol/L 23-31 6377966903) AGAP (test code = 2-16 6064003825) BUN (test code = 9 mg/dL 7-23 0159106682) GLUCOSE (test code = 93 mg/dL 70-110 6555046999) CREATININE (test code = 0.80 mg/dL 0.50-1.04 8393100238) TOTAL BILI (test code = 0.3 mg/dL 0.1-1.6 1772742029) CALCIUM (test code = 9.6 mg/dL 8.6-10.6 0806541729) T PROTEIN (test code = 7.3 g/dL 6.3-8.2 9385839074) ALBUMIN (test code = 4.7 g/dL 3.5-5.0 3556955062) ALK PHOS (test code = 58 U/L 34-122 8645662291) ALTv (test code = 60 U/L 5-35 H 1742-6) AST(SGOT) (test code = 26 U/L 13-40 3435972404) eGFR (test code = mL/min/1.73m2 0939668515) CHRYSTAL (test code = CHRYSTAL) Association of [...] tests). Lab Interpretation Abnormal (test code = 12682-1) [facility] CampusLIPASE2022-10-31 17:09:46 Test Item Value Reference Range Interpretation Comments LIPASE (test code = 4129415663) 116 U/L 0-220 Lab Interpretation (test code = Normal 58230-0) [facility] WITH [id number] 16:49:23 Test Item Value Reference Range Interpretation Comments WBC (test code = See_Comment [Automated 5690-2) message] The sy stem which generated this result transmitted reference range : 4.30 - 11.10 10*3/?L. The reference range was not used to interpret this result as normal/abnormal . RBC (test code = See_Comment [Automated 684-8) message] The sy stem which generated this [...] RDW-SD (test code = 39.2 fL 39.0-49.9 61965-0) RDW-CV (test code = 12.6 % 12.0-15.5 788-0) PLT (test code = See_Comment [Automated 777-3) message] The sy stem which generated this result transmitted reference range : 166 - 358 10*3/ ?L. The reference r evelina was not used to interpret this result as normal/abnormal . MPV (test code = 12.4 fL 9.5-12.9 42632-0) NRBC/100 WBC (test See_Comment [Automat ed code = 8014967977) message] The system which generated this result transmitted reference range : 0.0 - 10.0 /100 WBCs. The refer ence range was not u sed to interpret th is result as normal/abnormal . NRBC x10^3 (test code See_Comment [Auto mated = 3351244787) message] The s ystem which generated this result transmitted reference range : 10*3/?L. The reference range was not used to interpret this result as normal/abnormal . GRAN MAT (NEUT) % 45.4 % (test code = 770-8) IMM GRAN % (test code 0.40 % = 0894354577) LYMPH % (test code = 42.9 % 736-9) MONO % (test code = 5.9 % 5905-5) EOS % (test code = 4.4 % 713-8) BASO % (test code = 1.0 % 706-2) GRAN MAT x10^3(ANC) 3.64 10*3/uL 1.88-7.09 (test code = 0816593136) IMM GRAN x10^3 (test 0.03 10*3/uL 0.00-0.06 code = 4354203372) LYMPH x10^3 (test code 3.44 10*3/uL 1.32-3.29 H = 731-0) MONO x10^3 (test code 0.47 10*3/uL 0.33-0.92 = 742-7) EOS x10^3 (test code = 0.35 10*3/uL 0.03-0.39 711-2) BASO x10^3 (test code 0.08 10*3/uL 0.01-0.07 H = 704-7) Lab Interpretation Abnormal (test code = 16939-9) [facility] CampusPOCT [id number] 16:46:00 Test Item Value Reference Range Interpretation Comments POCT PREG (test code = 1605) negative On board controls acceptable with C present Line (test code = 3574) Lab Interpretation (test code = Normal 11694-9) [facility] CampusCoronavirus, CoVID-19, BDK5713-86-62 12:02:31 Test Item Value Reference Interpretation Comments Range COVID-19 Not Detected Not Detected INTERPRETATION: (SARS-COV-2) (test No detect able code = 28557-6) levels of SARS-CoV-2 Coronavirus (COVID-19) were present [...] its performance characteristics were verified by the [facility] molecular diagnostics laboratory and is authorized for clinical diagnostic use. This laboratory is certified under the Clinical Laboratory Improvement Amendments (CLIA) as qualified to perform high complexity clinical laboratory testing. Lab Interpretation Normal (test code = 66508-1) [facility]-CoV-2 RNA Resp Ql LYNN+vwzkj2148-99-10 12:02:31 Test Item Value Reference Range Interpretation Comments Hospitalized? (test No code = 25315-9) ICU? (test code = No 19042-2) Symptomatic as defined No by CDC? (test code = 68678-1) Employed in No Healthcare? (test code = 44064-8) Resident in a No congregate care setting (including nursing homes, residential care for people with intellectual and developmental disabilities, psychiatric treatment facilities, group homes, board and care homes, homeless long term, foster care or other): (test code = 28140-7) ? (test code = No 43761-0) SARS-CoV-2 RNA Resp Ql NOT DETECTED Not Detected INTER PRETATION: No LYNN+probe (test code = detec table levels 16225-1) of SARS-CoV-2 Coronavirus (COVID-19) were present in [...] its performance characteristics were verified by the [facility] molecular diagnostics laboratory and is authorized for clinical diagnostic use. This laboratory is certified under the Clinical Laboratory Improvement Amendments (CLIA) as qualified to perform high complexity clinical laboratory testing.HHSHIV 1+2 Ab+HIV1 p24 Ag SerPl Ql FY3943-48-12 16:15:14 Test Item Value Reference Range Interpretation Comments HIV 1+2 Ab+HIV1 p24 Ag SerPl Ql IA NEGATIVE Negative (test code = 90124-1) EMFXHSP-UhP-5 RNA Resp Ql LYNN+ddbvc3273-54-33 19:44:08 Test Item Value Reference Range Interpretation Comments Hospitalized? (test No code = 34706-9) ICU? (test code = No 64841-2) Symptomatic as defined No by CDC? (test code = 22344-0) Employed in No Healthcare? (test code = 38170-6) Resident in a No congregate care setting (including nursing homes, residential care for people with intellectual and developmental disabilities, psychiatric treatment facilities, group homes, board and care homes, homeless long term, foster care or other): (test code = 65930-9) ? (test code = No 68239-4) SARS-CoV-2 RNA Resp Ql NOT DETECTED Not Detected INTER PRETATION: No LYNN+probe (test code = detec table levels 36999-0) of SARS-CoV-2 Coronavirus (COVID-19) were present in [...] n with SARS-CoV-2 Coronavirus (COVID-19). COMMENT: This [employer] PF Xpert Xpress SARS-CoV-2 real-time PCR test was developed, and its performance characteristics determined by the [facility] molecular diagnostic Laboratory and is acceptablefor patient testing. It has been approved for patient testing by the FDA under the Emergency Use Auth orization pathway. This laboratory is certified under federal CLIA regulations to perform this type of high complexity testing.YFZDALHTBOLCQ2300-55-17 16:44:00 Test Item Value Reference Range Interpretation Comments Coronavirus (COVID-19) Not Detected (07/04/21 LYNN (test code = 11:44 AM) Coronavirus (COVID-19) LYNN) [facility]annCARDIAC EXGMXKG4681-85-15 16:36:00 Test Item Value Reference Range Interpretation Comments Troponin-I (test code = Troponin-I) no gt <=0.40 [facility] CampusannCARDITranSwitch NJUPURK6238-67-42 16:36:00 Test Item Value Reference Range Interpretation Comments Total CK (test code = Total CK) 56 12-191 [place] 209871-08-12 16:36:00 Test Item Value Reference Range Interpretation Comments Glucose Lvl (test code = Glucose Lvl) 91 70-99 [place] 209871-08-12 16:36:00 Test Item Value Reference Range Interpretation Comments BUN (test code = BUN) 13 7-22 [place] 209871-08-12 16:36:00 Test Item Value Reference Range Interpretation Comments Creatinine Lvl (test code = Creatinine 0.84 0.50-1.40 Lvl) [place] 209871-08-12 16:36:00 Test Item Value Reference Range Interpretation Comments Sodium Lvl (test code = Sodium Lvl) 137 135-145 [place] 209871-08-12 16:36:00 Test Item Value Reference Range Interpretation Comments Potassium Lvl (test code = Potassium 4.1 3.5-5.1 Lvl) [place] 209871-08-12 16:36:00 Test Item Value Reference Range Interpretation Comments Chloride Lvl (test code = Chloride Lvl) 106 95-109 [place] 209871-08-12 16:36:00 Test Item Value Reference Range Interpretation Comments CO2 (test code = CO2) 27 24-32 [place] 209871-08-12 16:36:00 Test Item Value Reference Range Interpretation Comments Calcium Lvl (test code = Calcium Lvl) 9.0 8.5-10.5 [facility]2021-08-12 16:36:00 Test Item Value Reference Range Interpretation Comments AGAP (test code = AGAP) 8.1 10.0-20.0 [facility]2021-08-12 16:36:00 Test Item Value Reference Range Interpretation Comments eGFR (test code = eGFR) 89 [facility] CampusAnrrfxcARMFEFWQONZHB9503-12-57 16:36:00 Test Item Value Reference Range Interpretation Comments S Preg (test code = S Negative *NA*(07/04/21 Preg) 11:36 AM) [place] 892381-08-12 16:36:00 Test Item Value Reference Range Interpretation Comments WBC (test code = WBC) 5.9 3.7-10.4 [place] 892381-08-12 16:36:00 Test Item Value Reference Range Interpretation Comments RBC (test code = RBC) 4.41 4.20-5.40 [place] 892381-08-12 16:36:00 Test Item Value Reference Range Interpretation Comments Hgb (test code = Hgb) 13.1 12.0-16.0 [place] 892381-08-12 16:36:00 Test Item Value Reference Range Interpretation Comments Hct (test code = Hct) 39.8 36.0-48.0 [facility] AllianceLuqcjskVBNDBJOYRM1213-97-58 16:36:00 Test Item Value Reference Range Interpretation Comments MCV (test code = MCV) 90.4 80.0-98.0 [facility] AllianceQqcnlieCTWROVCBMX1601-97-56 16:36:00 Test Item Value Reference Range Interpretation Comments MCH (test code = MCH) 29.7 pg 27.0-31.0 [place] 892381-08-12 16:36:00 Test Item Value Reference Range Interpretation Comments MCHC (test code = MCHC) 32.8 32.0-36.0 [facility] AllianceDssehriBCSBDKXBHX2804-09-89 16:36:00 Test Item Value Reference Range Interpretation Comments RDW (test code = RDW) 13.2 11.5-14.5 [facility] AllianceCldpjzxSWGMLETAHY1488-87-21 16:36:00 Test Item Value Reference Range Interpretation Comments Platelet (test code = Platelet) 198 133-450 [facility] AllianceCefubxfAZOMGMSZOK9388-79-74 16:36:00 Test Item Value Reference Range Interpretation Comments MPV (test code = MPV) 10.5 7.4-10.4 [facility] AllianceZutgseoNFPAZHKHLL2501-75-91 16:36:00 Test Item Value Reference Range Interpretation Comments Segs (test code = Segs) 54.0 45.0-75.0 [place] 892381-08-12 16:36:00 Test Item Value Reference Range Interpretation Comments Lymphocytes (test code = Lymphocytes) 30.7 20.0-40.0 [place] 02776-08-12 16:36:00 Test Item Value Reference Range Interpretation Comments Monocytes (test code = Monocytes) 7.4 2.0-12.0 [place] 892381-08-12 16:36:00 Test Item Value Reference Range Interpretation Comments Eosinophils (test code = Eosinophils) 6.4 <=4.0 [facility] AllianceNbsabyrKZRBRAMBIL6779-61-89 16:36:00 Test Item Value Reference Range Interpretation Comments Basophils (test code = Basophils) 1.5 <=1.0 [facility] AllianceWjaxgrmSONKIFBBPW8379-57-75 16:36:00 Test Item Value Reference Range Interpretation Comments Neutrophils # (test code = Neutrophils 3.2 1.5-8.1 #) [facility] AllianceCxohqaaKIHLKNGFQD2975-08-47 16:36:00 Test Item Value Reference Range Interpretation Comments Lymphocytes # (test code = Lymphocytes 1.8 1.0-5.5 #) [facility] AllianceShysxqxVIMWVVPXLW0134-34-38 16:36:00 Test Item Value Reference Range Interpretation Comments Monocytes # (test code = Monocytes #) 0.4 <=0.8 [facility] AllianceZpszjwxNICLULJOZV9589-18-79 16:36:00 Test Item Value Reference Range Interpretation Comments Eosinophils # (test code = Eosinophils 0.4 <=0.5 #) [facility] AllianceZnniducYKRXHVDVMT6795-77-07 16:36:00 Test Item Value Reference Range Interpretation Comments Basophils # (test code = Basophils #) 0.1 <=0.2 [facility] TZMUCAG1839-58-96 08:41:12 Test Item Value Reference Range Interpretation Comments SARS-CoV-2 NAAT (test Not Detected Not Detected code = 75600-3) CHRYSTAL (test code = CHRYSTAL) Cepheid Xpert ?Xpress SARS-CoV-2 Assay is a rapid, real-time RT-PCR test intended for the qualitative detection of nucleic acid from the SARS-CoV-2 in nasopharyngeal ([employer]) specimens. It is used under Emergency Use [...] indicated. Lab Interpretation Normal (test code = 55982-3) [facility]- (WITHOUT INDEX)2021-05-07 03:04:56 Test Item Value Reference Range Interpretation Comments CK-MB (test code = 0.26 ng/mL See_Comment [Automat ed 3888956982) message] The system which generated this result transmitted reference range : <=3.50. The reference range was not used to interpret this result as normal/abnormal . CHRYSTAL (test code = CHRYSTAL) Biotin has been reported to cause a negative bias, interpret results relative to patient's use of biotin. Lab Interpretation Normal (test code = 56191-9) [facility] CampusPOTASSIUM TITEQ6690-20-49 13:45:16 Test Item Value Reference Range Interpretation Comments K (test code = 3855074660) 3.6 mmol/L 3.5-5.0 Lab Interpretation (test code = Normal 96244-0) [facility] Metabolic Panel (NA, K, CL, CO2, GLUCOSE, BUN, CREATININE, CA)2021-05-06 06:41:14 Test Item Value Reference Range Interpretation Comments NA (test code = 139 mmol/L 135-145 5256940560) K (test code = 2.8 mmol/L 3.5-5.0 LL 3569443920) CL (test code = 99 mmol/L 98-108 7095556380) CO2 TOTAL (test code = 26 mmol/L 23-31 7972008293) AGAP (test code = 2-16 7148452286) BUN (test code = 9 mg/dL 7-23 1852729513) GLUCOSE (test code = 110 mg/dL 70-110 0200423186) CREATININE (test code = 0.86 mg/dL 0.50-1.04 7437740091) CALCIUM (test code = 9.9 mg/dL 8.6-10.6 5413615657) eGFR (test code = mL/min/1.73m2 9242813088) CHRYSTAL (test code = CHRYSTAL) Association of [...] tests). Lab Interpretation Abnormal (test code = 87893-1) [facility] CampusHepatic Function Panel (ALB, T.PRO, BILI T, BU/BC, ALT, AST, ALK PHOS)2021-05-06 06:38:33 Test Item Value Reference Range Interpretation Comments TOTAL BILI (test code = 6675619880) 0.6 mg/dL 0.1-1.1 BILI UNCON (test code = 6378138439) 0.4 mg/dL 0.1-1.1 BILI CONJ (test code = 0023384444) 0.0 mg/dL 0.0-0.3 T PROTEIN (test code = 0629112204) 8.3 g/dL 6.3-8.2 H ALBUMIN (test code = 5869305958) 4.9 g/dL 3.5-5.0 ALK PHOS (test code = 4371382586) 60 U/L 34-122 ALTv (test code = 1742-6) 15 U/L 5-35 AST(SGOT) (test code = 2267186857) 23 U/L 13-40 Lab Interpretation (test code = Abnormal 75453-4) [facility] CampusURINE DRUG (IMMUNOASSAY) - COMPREHENSIVE DRUG [id number] 06:17:10 Test Item Value Reference Range Interpretation Comments AMPHET (test code = Presumptive Positive Negative A 7638791344) CHARLIE U (test code = Negative Negative 1513399607) BENZO U (test code = Negative Negative 0223273731) Cocaine Metabolite (test Negative Negative code = 0064172110) METHADONE (test code = Negative Negative 7591918894) OPIATES (test code = Presumptive Positive Negative A 2878143074) PCP (test code = Negative Negative 1976581797) THC (test code = Negative Negative 4585397662) CHRYSTAL (test code = CHRYSTAL) Urine Drug [...] testing). Lab Interpretation (test Abnormal code = 38899-2) [facility] CampusEthanol Pupkb2050-79-18 05:41:39 Test Item Value Reference Range Interpretation Comments ALCOHOL (test code = <10 mg/dL 2506512256) CHRYSTAL (test code = CHRYSTAL) <10 Hkwnrchb65-676 Toxic>100 Depression of REAL ESTATE COORDINATOR>400 Fatalities Reported [facility] CampusSALICYLATE2021-06-14 05:41:34 Test Item Value Reference Range Interpretation Comments SALICYLATE (test code <10 mg/L = 4827558221) CHRYSTAL (test code = CHRYSTAL) Therapeutic Range: ? Analgesic and Antipyretic Use ? 20-100 mg/L ? ? Anti-Inflammatory Use ? 100-250 mg/L Toxic Range: ? Greater than 300 mg/L [facility] CampusACETAMINOPHEN2021-06-14 05:41:14 Test Item Value Reference Range Interpretation Comments ACETAMINOP (test code = <10.0 10.0-30.0 L 1380950482) CHRYSTAL (test code = CHRYSTAL) Toxic: Greater than 200 ug/mL @ 4 hour post ingestion or greater than 50 ug/mL @ 12 hour post ingestion Lab Interpretation (test Abnormal code = 90664-7) [facility] CampusCOVID-19 (ID NOW RAPID TESTING)2021-05-06 04:35:50 Test Item Value Reference Range Interpretation Comments SARS-CoV-2 Rapid ID NOW Not Detected Not Detected (test code = 32059-8) CHRYSTAL (test code = CHRYSTAL) ID NOW COVID-19 Assay is an isothermal nucleic acid amplification test intended for the qualitative detection of nucleic acid from SARS-CoV-2 viral RNA in nasopharyngeal ([employer]) specimens. It is used under Emergency Use [...] indicated. Lab Interpretation Normal (test code = 46581-6) [facility]21[facility]14 04:29:33 Test Item Value Reference Range Interpretation Comments APPEARANCE (test code = Hazy Clear A 6572948637) COLOR (test code = Elva Yellow A 4093373220) PH (test code = 4.8-8.0 0712199009) SP GRAVITY (test code = 1.003-1.030 H 3781698670) GLU U QUAL (test code = Normal Normal 9376364485) BLOOD (test code = Negative Negative 8590927507) KETONES (test code = 5 mg/dL Negative A 1349413584) PROTEIN (test code = 30 mg/dL Negative A 2887-8) UROBILIN (test code = 2.0 mg/dL Normal A 8302356597) BILIRUBIN (test code = 2 mg/dL Negative A 5863351777) NITRITE (test code = Negative Negative 6229957504) LEUK KARINE (test code = 75/uL Negative A 5308871158) RBC/HPF (test code = See_Comment H [Autom ated message] 2383112859) The system [employer] generated this result transmit yi reference range : 0 - 3 HPF. The refe rence range was not u sed to interpret th is result as normal/abnormal . WBC/HPF (test code = See_Comment H [Autom ated message] 9191339624) The system [employer] generated this result transmit yi reference range : 0 - 5 HPF. The refe rence range was not u sed to interpret th is result as normal/abnormal . BACTERIA (test code = Few Negative A 6384448712) MUCOUS (test code = Marked Negative LPF A 8580609754) SQ EPITH (test code = HPF 8058013935) HYAL CAST (test code = See_Comment H [Aut omated message] 8091192207) The system [employer] generated this result transmit yi reference range : <=2 LPF. The refere nce range was not u sed to interpret th is result as normal/abnormal . Lab Interpretation (test Abnormal code = 53405-2) [facility] with Neumuzigacvx8762-64-94 04:15:45 Test Item Value Reference Range Interpretation [...] (test code = 37.9 fL 39.0-49.9 L 19727-1) RDW-CV (test code = 12.2 % 12.0-15.5 788-0) PLT (test code = See_Comment [Automated 777-3) message] The sy stem which generated this result transmitted reference range : 166 - 358 10*3/ ?L. The reference r evelina was not used to interpret this result as normal/abnormal . MPV (test code = 12.2 fL 9.5-12.9 76199-8) NRBC/100 WBC (test See_Comment [Automat ed code = 6957140013) message] The system which generated this result transmitted reference range : 0.0 - 10.0 /100 WBCs. The refer ence range was not u sed to interpret th is result as normal/abnormal . NRBC x10^3 (test code <0.01 See_Comment [Auto mated = 6978544110) message] The s ystem which generated this result transmitted reference range : 10*3/?L. The reference range was not used to interpret this result as normal/abnormal . GRAN MAT (NEUT) % 57.5 % (test code = 770-8) IMM GRAN % (test code 0.30 % = 8613133387) LYMPH % (test code = 33.7 % 736-9) MONO % (test code = 6.8 % 5905-5) EOS % (test code = 0.7 % 713-8) BASO % (test code = 1.0 % 706-2) GRAN MAT x10^3(ANC) 5.18 10*3/uL 1.88-7.09 (test code = 6271853499) IMM GRAN x10^3 (test 0.03 10*3/uL 0.00-0.06 code = 4552351864) LYMPH x10^3 (test code 3.04 10*3/uL 1.32-3.29 = 731-0) MONO x10^3 (test code 0.61 10*3/uL 0.33-0.92 = 742-7) EOS x10^3 (test code = 0.06 10*3/uL 0.03-0.39 711-2) BASO x10^3 (test code 0.09 10*3/uL 0.01-0.07 H = 704-7) Lab Interpretation Abnormal (test code = 94154-9) [facility] Jxfi7741-28-87 04:08:00 Test Item Value Reference Range Interpretation Comments POCT PREG (test code = 1605) negative On board controls acceptable with C present Line (test code = 3574) Lab Interpretation (test code = Normal 15477-7) [facility] PELVIS W/[id number] 01:00:00 [facility] : 1985 Sex: FPatient Name: AMANDA KO Unit No: [id number] EXAMS: CPT: [id number] CT ABD PELVIS W/CONT 33753 CT ABDOMEN AND PELVIS WITH IV CONTRAST: [...] accordance withACR practice standards and adherence to applications processor's recommendations with automated exposure control. at 0100 Reported and signed by: Jefferson Alvarado MD CC: Technologist: JUANJOSE Randle CTDI: 7.55 DLP: 377.14 Trscr Dt/Tm: 09/09/2020 (0100) by:[email or web address] Orig Print D/T: S: 09/09/2020 (102) BATCH NO: N/A Name: AMANDA KO [facility] Phys: 12 - Melvin Alvarado [address] [place] : 1985 Age: 35 Sex: [place] [address] Loc: N.ERS Exam Date: 09/08/2020 Status: REG ER PH: FAX: PAGE 1 Signed ReportCOMPREHENSIVE METABOLIC [id number] 00:21:00 Test Item Value Reference Range Interpretation [...] 42-121 N PHOSPHATASE (test code = ALKP) [id number] 00:21:00 Test Item Value Reference Range Interpretation Comments LIPASE (test code = LIP) 35 IU/L 22-51 N URINALYSIS FIFRUVNU6088-92-13 23:59:00 Test Item Value Reference Range Interpretation [...] MUCU) 2+ /LPF NONE SEEN UR HCG [id number] 23:58:00 Test Item Value Reference Range Interpretation Comments UR HCG QUAL (test code = HCGQLU) NEGATIVE NEGATIVE HCG SERUM [id number] 23:52:00 Test Item Value Reference Range Interpretation Comments HCG SERUM QUAL NEGATIVE NEGATIVE This is a suzanne litative (test code = HCGQL) screenin g test.The quantitative Bh cg may be helpful.Weakly positive results should be repeated in 48 hours. CBC W/AUTO [id number] 23:46:00 Test Item Value Reference Range Interpretation [...] 0.1 x10 3/uL 0.0-0.1 N CBC W/AUTO [id number] 23:41:00 Test Item Value Reference Range Interpretation [...] code = EO#) x10 3/uL 0.0-0.5 FALLOPIAN [id number] 09:35:00 RUN DATE: 04/26/20 [place] - Lab PAGE 1 RUN TIME: 934 Specimen Inquiry RUN USER: INTERFACE PATIENT : AMANDA KO LOC: SANDY U #: [id number] AGE/SX: 35/F ROOM: RE04/25/20REG DR: Zahcariah Puente : [birth year] BED: DIS: STATUS: [facility] [place] [place] TLOC: SPEC #: [id number] RECD: 04/25/20 STATUS: REID #: [id number] MEL: 04/25/20 [facility] DR: Zachariah Puente MD ENTERED: 04/25/20 SP TYPE: FALLOPIAN OTHR DR: No Primary or Family PhysicianORDERED: KASHMIR [id number], BLOCK-CT/SL-NBC/2, SLIDE-CT/SL- NBC/2 COPIES TO: No Primary or Family Physician Zachariah Puente MD [address] [place] [address]. [address] [place] [address] PROCEDURES: L2- [id number] (04/25/20-854) BLOCK-CT/SL-NBC (04/25/20) SLIDE-CT/SL-NBC (04/25/20854) TISSUES: A. FALLOPIAN TUBE - BILATERAL CLINICAL HISTORY STERILIZATION FINAL DIAGNOSIS FALLOPIAN TUBES, BILATERAL, SALPINGECTOMY: - COMPLETE CROSS SECTIONS OF FALLOPIAN TUBE LUMENS IDENTIFIED - BENIGN CYSTIC WALTHARD CELL NESTS CPT Codes: 60121 x 2 GROSS DESCRIPTION The paperwork, container, and cassettes are all labeled [id number]. Received in formalin, labeled with the patient's [...] CONTINUED ON NEXT PAGE RUN DATE: 04/26/20 [place] - Lab PAGE 2 RUN TIME: 934 Specimen Inquiry RUN USER: INTERFACE SPEC #: [id number] PATIENT: AMANDA KO #[id number] (Continued)--------- --- GROSS DESCRIPTION (Continued) lumen is pinpoint. Ink code: Black - second segment. Sections to include the entire fimbriae of each segment are submitted: A1, first segment; A2, second segment. SHANNEN//pardeep Signed SIGNATURE ON DEBORAHW-Cayden Zendejas MD 04/26/20 0935 END OF REPORT URINALYSIS [id number] 07:10:00 Test Item Value Reference Range Interpretation [...] comments: PRE OP FOR SURGERYNovel Coronavirus 2019 [id number] 07:26:00 Test Item Value Reference Range Interpretation Comments Novel Coronavirus 2019 Inhouse (test Negative Negative code = COVNONPUI) Testing Criteria Pre-Procedure ScreeningNovel Coronavirus 2019 Ckubeyt0915-60-07 07:25:00 Test Item Value Reference Range Interpretation Comments Novel Coronavirus 2019 Inhouse (test Negative Negative code = COVNONPUI) Testing Criteria Pre-Procedure ScreeningHCG SERUM [id number] 13:16:00 Test Item Value Reference Range Interpretation Comments HCG SERUM QUAL (test code = HCGQL) NEG SCREEN NEG CBC W/O [id number] 13:02:00 Test Item Value Reference Range Interpretation [...] code = 12.0 fL 6.8-11.2 H MPV) BLOOD BANK [id number] 18:20:00 Test Item Value Reference Range Interpretation Comments ABO/Rh (test code = ABO/Rh) A POS [facility] [employer] [id number] 18:20:00 Test Item Value Reference Range Interpretation Comments Glucose Lvl (test code = Glucose Lvl) 139 70-99 [facility] [id number] 18:20:00 Test Item Value Reference Range Interpretation Comments BUN (test code = BUN) 12 7-22 [facility] [id number] 18:20:00 Test Item Value Reference Range Interpretation Comments Creatinine Lvl (test code = Creatinine 0.80 0.50-1.40 Lvl) [facility] [employer] [id number] 18:20:00 Test Item Value Reference Range Interpretation Comments Sodium Lvl (test code = Sodium Lvl) 137 135-145 [facility] [id number] 18:20:00 Test Item Value Reference Range Interpretation Comments Potassium Lvl (test code = Potassium 3.9 3.5-5.1 Lvl) [facility] [id number] 18:20:00 Test Item Value Reference Range Interpretation Comments Chloride Lvl (test code = Chloride Lvl) 105 95-109 [facility] [id number] 18:20:00 Test Item Value Reference Range Interpretation Comments CO2 (test code = CO2) 21 24-32 [facility] [id number] 18:20:00 Test Item Value Reference Range Interpretation Comments Calcium Lvl (test code = Calcium Lvl) 9.0 8.5-10.5 [facility] [id number] 18:20:00 Test Item Value Reference Range Interpretation Comments AGAP (test code = AGAP) 14.9 10.0-20.0 [facility] [id number] 18:20:00 Test Item Value Reference Range Interpretation Comments eGFR (test code = eGFR) 96 [facility]YitikxjGAPWFVEMFCNQA5247-99-84 18:20:00 Test Item Value Reference Range Interpretation Comments hCG Tot (test code = hCG Tot) [address] [facility]ay[facility]zwXNOQMWCKFA3303-07-14 18:20:00 Test Item Value Reference Range Interpretation Comments WBC (test code = WBC) 8.1 3.7-10.4 [facility] HospitalEjuvbipMOPINUGVZD5326-87-11 18:20:00 Test Item Value Reference Range Interpretation Comments RBC (test code = RBC) 4.17 4.20-5.40 [facility] HospitalYfethmyFUOGCBBEHY8582-60-71 18:20:00 Test Item Value Reference Range Interpretation Comments Hgb (test code = Hgb) 13.0 12.0-16.0 [facility] AllianceMshgchiBYXBCGFTZT8929-47-12 18:20:00 Test Item Value Reference Range Interpretation Comments Hct (test code = Hct) 37.6 36.0-48.0 [facility] AllianceNlqywnoOOOJPORKZW0402-62-28 18:20:00 Test Item Value Reference Range Interpretation Comments MCV (test code = MCV) 90.2 80.0-98.0 [facility] HeightsFiaihkcBWAUBARXME5890-36-98 18:20:00 Test Item Value Reference Range Interpretation Comments MCH (test code = MCH) 31.2 pg 27.0-31.0 [facility] HospitalVcezciyLYFCKXYSTA1588-00-64 18:20:00 Test Item Value Reference Range Interpretation Comments MCHC (test code = MCHC) 34.6 32.0-36.0 [facility] HospitalBsnaccoPYSJYZGYKJ9727-85-72 18:20:00 Test Item Value Reference Range Interpretation Comments RDW (test code = RDW) 12.3 11.5-14.5 [facility] HospitalYxtckmhVXMZDCUGCL8699-08-83 18:20:00 Test Item Value Reference Range Interpretation Comments Platelet (test code = Platelet) 184 133-450 [facility] AlliancePwpastdKGGKZPCSXQ9048-87-03 18:20:00 Test Item Value Reference Range Interpretation Comments MPV (test code = MPV) 10.4 7.4-10.4 [facility] HospitalYpxlsquPPFFFCNVHV9904-24-64 18:20:00 Test Item Value Reference Range Interpretation Comments Segs (test code = Segs) 76.5 45.0-75.0 [facility] AllianceLzegytfODUBZMGYLU2640-07-39 18:20:00 Test Item Value Reference Range Interpretation Comments Lymphocytes (test code = Lymphocytes) 16.0 20.0-40.0 [facility] AllianceWcnwidoGQRIQBUUUY7649-47-46 18:20:00 Test Item Value Reference Range Interpretation Comments Monocytes (test code = Monocytes) 5.1 2.0-12.0 [facility] AllianceCqlxdufMOTWNWGFKY9116-76-46 18:20:00 Test Item Value Reference Range Interpretation Comments Eosinophils (test code = Eosinophils) 1.7 <=4.0 [facility] AllianceSyjmqfuZYSUXEHSSZ9396-33-60 18:20:00 Test Item Value Reference Range Interpretation Comments Basophils (test code = Basophils) 0.7 <=1.0 [facility] AllianceAhoicnmAEHMUCBOTL8637-01-49 18:20:00 Test Item Value Reference Range Interpretation Comments Neutrophils # (test code = Neutrophils 6.2 1.5-8.1 #) [facility] AllianceDmbmktrKICPAONTOL1990-27-64 18:20:00 Test Item Value Reference Range Interpretation Comments Lymphocytes # (test code = Lymphocytes 1.3 1.0-5.5 #) [facility] AllianceSwzndklDVIBRYBEDO1465-61-92 18:20:00 Test Item Value Reference Range Interpretation Comments Monocytes # (test code = Monocytes #) 0.4 <=0.8 [facility] AllianceJurzxdvPNGNKONFBE7759-19-20 18:20:00 Test Item Value Reference Range Interpretation Comments Eosinophils # (test code = Eosinophils 0.1 <=0.5 #) [facility] AllianceDesrywtUSBJLXEDTZ2854-55-27 18:20:00 Test Item Value Reference Range Interpretation Comments Basophils # (test code = Basophils #) 0.1 <=0.2 [facility] AND [id number] 18:20:00 Test Item Value Reference Range Interpretation Comments UA Color (test code = Yellow *NA*(01/27/20 UA Color) 12:20 PM) [facility] AND [id number] 18:20:00 Test Item Value Reference Range Interpretation Comments UA Turbidity (test code Slight *ABN*(01/27/20 = UA Turbidity) 12:20 PM) [facility] AND [id number] 18:20:00 Test Item Value Reference Range Interpretation Comments UA Spec Grav (test code = UA Spec 1.026 1 Grav) [facility] AND [id number] 18:20:00 Test Item Value Reference Range Interpretation Comments UA pH (test code = UA pH) 6.0 1 5.0-8.0 [facility] AND [id number] 18:20:00 Test Item Value Reference Range Interpretation Comments UA Protein (test code = UA Negative mg/dL Protein) [facility] AND [id number] 18:20:00 Test Item Value Reference Range Interpretation Comments UA Glucose (test code = UA Negative mg/dL Glucose) [facility] AND [id number] 18:20:00 Test Item Value Reference Range Interpretation Comments UA Ketones (test code = UA Negative mg/dL Ketones) [facility] AND [id number] 18:20:00 Test Item Value Reference Range Interpretation Comments UA Bili (test code = Negative *NA*(01/27/20 UA Bili) 12:20 PM) [facility] AND [id number] 18:20:00 Test Item Value Reference Range Interpretation Comments UA Blood (test code = Negative (01/27/20 12:20 UA Blood) PM) [facility] AND [id number] 18:20:00 Test Item Value Reference Range Interpretation Comments UA Nitrite (test code Negative (01/27/20 12:20 = UA Nitrite) PM) [facility] AND [id number] 18:20:00 Test Item Value Reference Range Interpretation Comments UA Leuk Est (test Negative (01/27/20 12:20 code = UA Leuk Est) PM) [facility] AND [id number] 18:20:00 Test Item Value Reference Range Interpretation Comments UA Sq Epi (test code = UA Sq Occasional /LPF Epi) [facility] AND [id number] 18:20:00 Test Item Value Reference Range Interpretation Comments UA WBC (test code = UA WBC) 2 <=5 [facility] AND [id number] 18:20:00 Test Item Value Reference Range Interpretation Comments UA RBC (test code = UA RBC) 8 <=2 [facility] AND [id number] 18:20:00 Test Item Value Reference Range Interpretation Comments UA Bacteria (test code = UA Occasional /HPF Bacteria) [facility] [id number] 18:20:00 Test Item Value Reference Range Interpretation Comments UA Mucus (test code = UA Mucus) Few /LPF [facility] [id number] 18:20:00 Test Item Value Reference Range Interpretation Comments UA Urobilinogen (test code = UA <=1.0 mg/dL 0.1-1.0 Urobilinogen) [facility]- US PREG UT TYVDDEAJORAH9398-21-87 20:04:00 Patient Name: AMANDA FRENCH Unit No: [id number] EXAMS: CPT CODE: [id number] US PREG UT TRANSVAGINAL 04217 Examination: Ultrasound transvaginal Location code: H60 Comparison: None Discussion: Clinical history is remarkable for pelvic pain. Uterus measures 8.1 x 6.4 x 7.6 cm. An intrauterinegestation is identified. Ledbetter-rump length measures 3.41 cm which corresponds to [...] Please see above. at 2003 Reported and signedby: Tito Asencio MD CC: Milly RODRÍGUEZ Technologist: Leta Esquivel RDMS Trnscrbd D/ (2003) [email or web address] Probe: [id number] Orig Print D/T: S: 01/21/2020 (2006) Probe: GUERLINE Soriano NAME: AMANDA FRENCH [address] [place] [address] Blvd PHYS: Milly [place], [place] [address] : 1985 AGE: 34 SEX: F LOC: B.ERS PHONE #: [phone] EXAM DATE: 01/21/2020 STATUS: REG ER FAX #: [phone] RAD NO: Page 1 Signed ReportBASIC METABOLIC PANEL 2020-01-21 19:09:00 Test Item Value Reference Range Interpretation [...] 1 NORMAL code = LIPINDEX) Index/DL HCG [id number] 19:09:00 Test Item Value Reference Range Interpretation Comments HCG SERUM (test 31684 mi-IU/ML 0-3 H HCG RANGE S DURING code = HCG) NORMAL PREGNANC YPOST LMP 3-4 WEEKS 9 - 130 MIU/ML4-5 WEEKS 75 - 2,600 MIU/ML5-6 WEEKS 850 - 20,800 IN U/ML6-7 WEEKS 4,000 - 1 00,200 MIU/ML7-12 WEEK S 11,500 - 289,000 MIU/M L12-16 WEEKS 18,300 - 137,000 MIU/ML16-29 WEE KS 1,400 - 53,000 MIU/ML 29-41 WEEKS 940 - 60, 000 MIU/ML BASIC METABOLIC [id number] 18:52:00 Test Item Value Reference Range Interpretation [...] 1 NORMAL code = LIPINDEX) Index/DL HCG [id number] 18:52:00 Test Item Value Reference Range Interpretation Comments HCG SERUM (test code = HCG) mi-IU/ML 0-3 URINALYSIS [id number] 18:49:00 Test Item Value Reference Range Interpretation [...] >0 /HPF NONE-SQepi code = SQU) URINALYSIS [id number] 18:48:00 Test Item Value Reference Range Interpretation [...] code = RBCU) #RBC/HPF 0-3 CBC W/O [id number] 18:35:00 Test Item Value Reference Range Interpretation [...] 11.6 fL 6.8-11.2 H MPV) HCG SERUM [id number] 02:56:00 Test Item Value Reference Range Interpretation Comments HCG SERUM QUAL (test code = HCGQL) NEG SCREEN NEG COMPREHENSIVE METABOLIC [id number] 02:14:00 Test Item Value Reference Range Interpretation [...] 1 NORMAL code = LIPINDEX) MG Index/DL [id number] 02:14:00 Test Item Value Reference Range Interpretation Comments ALCOHOL (test code = < 3 MG/DL 0-10 N MEDICAL ALCOHOL ALC) RESULTS. SITE W PREPPED WITH BE TADINE. <10 MG/DL ARE CONSIDERED NEGA TIVE. >400 MG/DL MAY BE FATAL.RESULTS F OR MEDICAL USE ONL Y. NOT TO BE USED FOR FORENSIC PURPOSES. COMPREHENSIVE METABOLIC [id number] 02:13:00 Test Item Value Reference Range Interpretation [...] 1 NORMAL code = LIPINDEX) MG Index/DL [id number] 02:13:00 Test Item Value Reference Range Interpretation Comments ALCOHOL (test code = < 3 MG/DL 0-10 N MEDICAL ALCOHOL ALC) RESULTS. SITE W PREPPED WITH BE TADINE. <10 MG/DL ARE CONSIDERED NEGA TIVE. >400 MG/DL MAY BE FATAL.RESULTS F OR MEDICAL USE ONL Y. NOT TO BE USED FOR FORENSIC PURPOSES. CBC W/AUTO [id number] 01:48:00 Test Item Value Reference Range Interpretation [...] code = 0.00 K/mm3 0.0-0.05 N NRBC#) CARDIAC [id number] 23:54:00 Test Item Value Reference Range Interpretation Comments Troponin-I (test code = <0.02 ng/mL <=0.40 Troponin-I) [facility] [id number] 23:54:00 Test Item Value Reference Range Interpretation Comments Lipase Lvl (test code = Lipase Lvl) 117 73-393 [facility]UTWTTACWXWGB3308-66-89 23:54:00 Test Item Value Reference Range Interpretation Comments AGAP (test code = AGAP) 11.9 10.0-20.0 [facility]GbuzzhyVWBIUCZMYIZO3990-79-75 23:54:00 Test Item Value Reference Range Interpretation Comments B/C Ratio (test code = B/C Ratio) 9 1 6-25 [facility]ombMjzardiUCUTYLPZAKPH2062-26-30 23:54:00 Test Item Value Reference Range Interpretation Comments Globulin (test code = Globulin) 3.8 2.7-4.2 [facility]ombTibmuxvYORLTHPGWJFE1219-53-50 23:54:00 Test Item Value Reference Range Interpretation Comments A/G Ratio (test code = A/G Ratio) 1.2 1 0.7-1.6 [facility]ombDqvqpmbFNBTSQFGRSGW3725-96-43 23:54:00 Test Item Value Reference Range Interpretation Comments Glucose Lvl (test code = Glucose Lvl) 82 70-99 [facility]ombAhowkjgKLJUZJUOXXBT8110-69-46 23:54:00 Test Item Value Reference Range Interpretation Comments BUN (test code = BUN) 8 7-22 [facility]ombEenzskzVKYIOJTAUENC8310-09-40 23:54:00 Test Item Value Reference Range Interpretation Comments Creatinine Lvl (test code = Creatinine 0.92 0.50-1.40 Lvl) [facility]ombPyldifzGIFEKZJTAFTY5613-32-18 23:54:00 Test Item Value Reference Range Interpretation Comments Sodium Lvl (test code = Sodium Lvl) 137 135-145 [facility]ombDnjfcwjODFHFEVWXDEF4230-63-90 23:54:00 Test Item Value Reference Range Interpretation Comments Potassium Lvl (test code = Potassium 3.9 3.5-5.1 Lvl) [facility]ombSmkcnxiZDKJLHFLPSKD1858-86-65 23:54:00 Test Item Value Reference Range Interpretation Comments Chloride Lvl (test code = Chloride Lvl) 104 95-109 [facility]ombVewurnsKTCJBEQIFQLA5952-85-04 23:54:00 Test Item Value Reference Range Interpretation Comments CO2 (test code = CO2) 25 24-32 [facility]ombRhsxfupTZBTUDGFOFAH2541-90-67 23:54:00 Test Item Value Reference Range Interpretation Comments Calcium Lvl (test code = Calcium Lvl) 9.6 8.5-10.5 [facility]ombWqkdowiWSAHAWBSEFZN4543-78-76 23:54:00 Test Item Value Reference Range Interpretation Comments Total Protein (test code = Total 8.2 6.4-8.4 Protein) [facility]ombUeuctekCRTEIIRVXPBH7122-05-70 23:54:00 Test Item Value Reference Range Interpretation Comments Albumin Lvl (test code = Albumin Lvl) 4.4 3.5-5.0 [facility]ombRjxtaqgEYHJIZWOTUPT2747-94-47 23:54:00 Test Item Value Reference Range Interpretation Comments ALT (test code = ALT) 38 <=65 [facility]ombSbnfksyUSOMAXVDKSLV4947-09-43 23:54:00 Test Item Value Reference Range Interpretation Comments AST (test code = AST) 21 <=37 [facility]ombQominsvKVUMZPPBXMNN7278-47-32 23:54:00 Test Item Value Reference Range Interpretation Comments Alk Phos (test code = Alk Phos) 56 39-136 [facility]ombQxvvzdoUNJDEHLFNHLE8774-78-66 23:54:00 Test Item Value Reference Range Interpretation Comments Bili Total (test code = Bili Total) 0.7 0.2-1.3 [facility] MacombXvjealdLVZABVGUFOBV5757-37-85 23:54:00 Test Item Value Reference Range Interpretation Comments eGFR (test code = eGFR) 80 [facility] CampusUzhthonXLBUKVTGRBABB2598-82-21 23:54:00 Test Item Value Reference Range Interpretation Comments S Preg (test code = S Negative *NA*(08/04/19 Preg) 6:54 PM) [facility] AllianceFskrnkhHOTRYTPQNU3932-79-84 23:54:00 Test Item Value Reference Range Interpretation Comments WBC (test code = WBC) 9.8 3.7-10.4 [facility] AllianceEycdtjaGRGAOKZSRN5336-42-34 23:54:00 Test Item Value Reference Range Interpretation Comments RBC (test code = RBC) 4.33 4.20-5.40 [facility] A[id number] 23:54:00 Test Item Value Reference Range Interpretation Comments Hgb (test code = Hgb) 14.3 12.0-16.0 [facility] AllianceDbilvhxXIOLVGRPJN8955-83-04 23:54:00 Test Item Value Reference Range Interpretation Comments Hct (test code = Hct) 40.6 36.0-48.0 [facility] AllianceIpehthrCMFFAXLOLF9448-20-99 23:54:00 Test Item Value Reference Range Interpretation Comments MCV (test code = MCV) 93.7 80.0-98.0 [facility] AllianceKdgkwsxRBMXLFIPGF2084-39-65 23:54:00 Test Item Value Reference Range Interpretation Comments MCH (test code = MCH) 33.1 pg 27.0-31.0 [facility] AllianceSgdykjaZEHAJNMFDH3075-24-17 23:54:00 Test Item Value Reference Range Interpretation Comments MCHC (test code = MCHC) 35.3 32.0-36.0 [facility] Allian[id number] 23:54:00 Test Item Value Reference Range Interpretation Comments RDW (test code = RDW) 12.3 11.5-14.5 [facility] All[id number] 23:54:00 Test Item Value Reference Range Interpretation Comments Platelet (test code = Platelet) 206 133-450 [facility] AllianceNbpdwnaEJFITTIAIT6404-90-85 23:54:00 Test Item Value Reference Range Interpretation Comments MPV (test code = MPV) 10.4 7.4-10.4 [facility] AllianceTrumhnwDNIUUSHYEZ2508-06-76 23:54:00 Test Item Value Reference Range Interpretation Comments Segs (test code = Segs) 58.9 45.0-75.0 [facility] AllianceBrhwmwiXFGBXVKUEN0505-62-11 23:54:00 Test Item Value Reference Range Interpretation Comments Lymphocytes (test code = Lymphocytes) 30.1 20.0-40.0 [facility] AllianceBctkmqqAGMCYYRGAM8088-60-11 23:54:00 Test Item Value Reference Range Interpretation Comments Monocytes (test code = Monocytes) 7.3 2.0-12.0 [facility] AllianceRhjuvwaYTWDPCWCQM1003-21-65 23:54:00 Test Item Value Reference Range Interpretation Comments Eosinophils (test code = Eosinophils) 2.5 <=4.0 [facility] AllianceXzpfzmoHGLJATUKTT9030-01-10 23:54:00 Test Item Value Reference Range Interpretation Comments Basophils (test code = Basophils) 1.2 <=1.0 [facility] A[id number] 23:54:00 Test Item Value Reference Range Interpretation Comments Neutrophils # (test code = Neutrophils 5.8 1.5-8.1 #) [facility] Al[id number] 23:54:00 Test Item Value Reference Range Interpretation Comments Lymphocytes # (test code = Lymphocytes 3.0 1.0-5.5 #) [facility] A[id number] 23:54:00 Test Item Value Reference Range Interpretation Comments Monocytes # (test code = Monocytes #) 0.7 <=0.8 [place] [id number] 23:54:00 Test Item Value Reference Range Interpretation Comments Eosinophils # (test code = Eosinophils 0.2 <=0.5 #) [facility] A[id number] 23:54:00 Test Item Value Reference Range Interpretation Comments Basophils # (test code = Basophils #) 0.1 <=0.2 [place] [id number] 23:54:00 Test Item Value Reference Range Interpretation Comments Ethanol Lvl (test code = Ethanol Lvl) no gt [place] [id number] 23:54:00 Test Item Value Reference Range Interpretation Comments Etoh (%) (test code = Etoh (%)) no [facility]
--- NOTE | 2023-08-12 14:15 | ER ---
Nurse's Notes [facility] Name: Amanda Lees Age: 38 yrs Sex: Female : 1985 Arrival Date: 08/12/2023 Time: 13:37 Bed 6 Private MD: Diagnosis: Other specified anxiety disorders Presentation: 08/12 13:42 Chief complaint: Patient states: CP and anxiety off/on for a few weeks. Coronavirus ll1 screen: Client denies travel out of the [place] in the last 14 days. At this time, the client does not indicate any symptoms associated with coronavirus-19. Ebola Screen: Patient denies travel to an Ebola-affected area in the 21 days before illness onset. Initial Sepsis Screen: Does the patient meet any 2 criteria? No. Patient's initial sepsis screen is negative. Does the patient have a suspected source of infection? No. Patient's initial sepsis screen is negative. Risk Assessment: Do you want to hurt yourself or someone else? Patient reports no desire to harm self or others. Onset of symptoms was July 24, 2023. 13:42 Method Of Arrival: Ambulatory ll1 13:42 Acuity: VIVEK 3 ll1 Historical: - Allergies: 13:43 No Known Drug Allergies; ll1 - PMHx: 13:43 Bipolar disorder; Depression; Anxiety; severe PTSD; ll1 - PSHx: 13:43 section; Ligation of fallopian tube; ll1 - Immunization history:: Adult Immunizations up to date. - Social history:: Smoking status: Patient denies any tobacco usage or history of. Vital Signs: 13:42 BP 142 / 93; Pulse 102; Resp 17; Temp 98.1; Pulse Ox 98% ; Weight 68.04 kg; Height 5 ll1 ft. 1 in. ; Pain 7/10; 13:42 Body Mass Index 28.34 (68.04 kg, 154.94 cm) ll1 13:42 Pain Scale: Adult ll1 ED Course: 13:39 Patient arrived in ED. im 13:43 Triage completed. ll1 13:43 Arm band placed on. ll1 13:46 Monique Pickard is Attending Physician. ci 14:04 Bed in low position. Call light in reach. ds4 Administered Medications: No medications were administered Outcome: 14:19 Patient left the ED. aa5 14:19 Eloped from patient exam room, after seeing physician [email or web address] Signatures: Clarissa Dominguez, RN RN aa5 Hermes Dumont 4 Aristides Hernadez RN RN ll1 Laura Darnell IhMonique rodriguez Corrections: (The following items were deleted from the chart) 14:19 14:04 Clarissa Dominguez, RN is Primary Nurse. aa5 aa5 14:20 14:19 Eloped from patient exam room, after seeing physician shaka gandhi
--- NOTE | 2023-08-12 14:15 | EDPHYS ---
Physician Documentation [facility] Name: Amanda Lees Age: 38 yrs Sex: Female : 1985 Arrival Date: 08/12/2023 Time: 13:37 Bed 6 Private MD: ED Physician Monique Pickard HPI: 08/12 14:15 This 38 yrs old Female presents to ER via Ambulatory with complaints of Anxiety attack. ci 14:15 Patient is a 38-year-old female with PMH bipolar, depression, anxiety, severe PTSD who ci presents to the ED for anxiety attack. Patient reports she ran out of her meds except for Lexapro and she has been very anxious. She recently lost her job, she is having chest pains due to anxiety. She lost her Medicaid, does not have a psychiatrist. Patient requesting refill for Lexapro, klonopin, Depakote.. Historical: - Allergies: 13:43 No Known Drug Allergies; ll1 - PMHx: 13:43 Bipolar disorder; Depression; Anxiety; severe PTSD; ll1 - PSHx: 13:43 section; Ligation of fallopian tube; ll1 - Immunization history:: Adult Immunizations up to date. - Social history:: Smoking status: Patient denies any tobacco usage or history of. ROS: 14:17 Constitutional: Negative for fever, chills, and weight loss, Cardiovascular: Negative ci for palpitations, and edema. Positive chest pain. Respiratory: Negative for shortness of breath, cough, wheezing, and pleuritic chest pain, Skin: Negative for injury, rash, and discoloration, Neuro: Negative for headache, weakness, numbness, tingling, and seizure, Psych: Positive for depression, anxiety. Negative suicide ideation, homicidal ideation, Exam: 14:17 Constitutional: This is a well developed, well nourished patient who is awake, alert, ci and in no acute distress. Head/Face: Normocephalic, atraumatic. 14:17 Eyes: Pupils equal round and reactive to light, extra-ocular motions intact. Lids and ci lashes normal. Conjunctiva and sclera are non-icteric and not injected. Cornea within normal limits. Periorbital areas with no swelling, redness, or edema. ENT: Nares patent. No nasal discharge, no septal abnormalities noted. Tympanic membranes are normal and external auditory canals are clear. Oropharynx with no redness, swelling, or masses, exudates, or evidence of obstruction, uvula midline. Mucous membranes moist. Neck: Trachea midline, no thyromegaly or masses palpated, and no cervical lymphadenopathy. Supple, full range of motion without nuchal rigidity, or vertebral point tenderness. No Meningismus. Chest/axilla: Normal chest wall appearance and motion. Nontender with no deformity. No lesions are appreciated. Cardiovascular: Regular rate and rhythm with a normal S1 and S2. No gallops, murmurs, or rubs. Normal PMI, no JVD. No pulse deficits. Respiratory: Lungs have equal breath sounds bilaterally, clear to auscultation and percussion. No rales, rhonchi or wheezes noted. No increased work of breathing, no retractions or nasal flaring. Abdomen/GI: Soft, non-tender, with normal bowel sounds. No distension or tympany. No guarding or rebound. No evidence of tenderness throughout. Back: No spinal tenderness. No costovertebral tenderness. Full range of motion. Skin: Warm, dry with normal turgor. Normal color with no rashes, no lesions, and no evidence of cellulitis. MS/ Extremity: Pulses equal, no cyanosis. Neurovascular intact. Full, normal range of motion. Neuro: Awake and alert, GCS 15, oriented to person, place, time, and situation. Cranial nerves II-XII grossly intact. Motor strength 5/5 in all extremities. Sensory grossly intact. Cerebellar exam normal. Normal gait. Psych: Awake, alert, with orientation to person, place and time. Patient appears anxious. Vital Signs: 13:42 BP 142 / 93; Pulse 102; Resp 17; Temp 98.1; Pulse Ox 98% ; Weight 68.04 kg; Height 5 ll1 ft. 1 in. ; Pain 06/01; 13:42 Body Mass Index 28.34 (68.04 kg, 154.94 cm) ll1 13:42 Pain Scale: Adult ll1 MDM: 13:46 Patient medically screened. ci 14:17 Differential diagnosis: anxiety, costochondritis, gastroesophageal reflux disease ci (GERD), stable angina. HEART Score:. Data reviewed: vital signs, nurses notes, old medical records, Patient was seen on 07/02/2023 for similar complaints, discharged with 6 tablets of Klonopin. Test considered but Not performed: EKG: EKG ordered, however patient eloped. Care significantly affected by the following chronic conditions: Anxiety, depression. ED course: Patient arrived to the ED hemodynamically stable and in no acute distress. She does appear anxious, denies HI, SI. Patient requesting refill for psychiatric meds. Chart review shows patient was evaluated on 07/02/2023 for similar complaints. I did advise patient that I am unable to prescribe her Klonopin and patient became agitated, stated "you are not going to give me medication that I am here for, I might as well go to a real doctor, you bitch". 14:17 ED course: Patient verbally abusive towards physician and walked out of the ED to go to a different ED for Klonopin prescription.. 08/12 14:04 Order name: EKG; Complete Time: 14:05 ci 08/12 14:04 Order name: Cardiac monitoring ci 08/12 14:04 Order name: EKG - Nurse/Tech ci 08/12 14:04 Order name: IV Saline Lock ci 08/12 14:04 Order name: Labs collected and sent ci 08/12 14:04 Order name: O2 Per Protocol ci 08/12 14:04 Order name: O2 Sat Monitoring ci Administered Medications: No medications were administered Disposition Summary: 08/12/23 14:15 Eloped Notes: Disposition: after being seen by provider ci Reason: other ci Diagnosis - Other specified anxiety disorders ci Signatures: Dispatcher [employer] Aristides Lowry RN RN ll1 Monique Pickrad ci Corrections: (The following items were deleted from the chart) 18:30 14:15 Patient is a 38-year-old female with PMH bipolar, depression, anxiety, severe ci PTSD who presents to the ED for anxiety attack. Patient reports she ran out of her meds except for Lexapro and she has been very anxious. She recently lost her job, she is having chest pains due to anxiety. She lost her Medicaid, does not have a psychiatrist. Patient requesting refill for Lexapro, klonopin, Depakote.. ci
[2023-08-12 14:43] VITALS: BP 142/93; TEMP 98.1; O2SAT 98
== END 2023-08-12 14:19 | disposition left against medical advice (07) ==
LOC: ER 13:37
DX: F41.8 Other specified anxiety disorders (principal)